=== PATIENT | female | born 1930 | race Caucasian/White ===

== ENCOUNTER 2016-06-06 16:42 | Emergency (ER) | payer MEDICARE ==
[2016-06-06] MEDS ORDERED: RX INFO: IV CONTRAST WAS GIVEN 1 EACH MISC MISCELLANE PRN (17:26)
[2016-06-06] MEDS ORDERED: SODIUM CHLORIDE 0.9% 1,000 ML IV STA (17:26)
[2016-06-06] MEDS ORDERED: PANTOPRAZOLE 40 MG/10 ML VIAL IVP STA (17:26)
--- NOTE | 2016-06-06 17:37 | ED ---
Abdominal Pain HPI - General Chief Complaint: Abdominal Pain Stated Complaint: Abd Pain Time Seen by Provider: 06/06/16 17:09 Source: patient Mode of arrival: wheelchair Limitations: no limitations - History of Present Illness Initial Comments: Presented with right-sided abdominal pain she has a pain in the right upper quadrant area, right lower quadrant area off and on for about 6 months from her family doctor's office she is scheduled to get a CAT scan of the abdomen few days down the road she said she had this pain off and on but today pain was more persistent and she denies any nausea or any vomiting she had a bowel movement today also concerned about her high blood pressure her blood pressure is quite high was 248 systolic in the ER she did not miss her blood pressure pills for last few days. She denies any chest pain or shortness of breath no headaches no blurred vision no neck stiffness no frequency urgency dysuria she does have pain in the right side of the abdomen. From the right upper quadrant area right paraumbilical area and the right lower quadrant area, positive bowel sounds no guarding no rebounds - Related Data Home Medications Medication Instructions Recorded Confirmed Aspirin EC [Ecotrin] 81 mg PO DAILY 04/17/14 06/06/16 Atenolol [Tenormin] 25 mg PO HS 04/17/14 06/06/16 Ranitidine HCl [Zantac] 150 mg PO BID 04/17/14 06/06/16 Simvastatin [Zocor] 40 mg PO HS 04/17/14 06/06/16 Ascorbic Acid [Vitamin C] 500 mg PO DAILY 06/06/16 06/06/16 Losartan Potassium [Cozaar] 100 mg PO W/SUPPER 06/06/16 06/06/16 Multivitamins, Thera [Multivitamin] 1 tab PO DAILY 06/06/16 06/06/16 Previous Rx's Medication Instructions Recorded Omeprazole 20 mg PO DAILY #60 cap 06/06/16 Allergies Allergy/AdvReac Type Severity Reaction Status Date / Time metaxalone [From Skelaxin] Allergy Rash/Hives Verified 06/06/16 17:21 verapamil HCl [From Calan] Allergy Unknown Verified 06/06/16 17:21 naproxen AdvReac Severe Heartburn Verified 06/06/16 17:21 acetaminophen AdvReac Abdominal Verified 06/06/16 17:21 [From Tylenol-Codeine #3] Pain codeine phosphate AdvReac Abdominal Verified 06/06/16 17:21 [From Tylenol-Codeine #3] Pain quinapril HCl [From Accupril] AdvReac Rapid Verified 06/06/16 17:21 Heart Rate Review of Systems ROS Statement: Those systems with pertinent positive or pertinent negative responses have been documented in the HPI. ROS Other: All systems not noted in ROS Statement are negative. Past Medical History Past Medical History: Coronary Artery Disease (CAD), GERD/Reflux, Hypertension History of Any Multi-Drug Resistant Organisms: None Reported Past Surgical History: Cholecystectomy, Heart Catheterization With Stent Past Anesthesia/Blood Transfusion Reactions: No Reported Reaction Date of Last Stent Placement:: 05/11/10 Past Psychological History: Anxiety Smoking Status: Never smoker - Past Family History Father Family Medical History: Cancer Sister(s) Family Medical History: Cancer General Exam - General Exam Comments Initial Comments: General: The patient is awake and alert, in no distress, and does not appear acutely ill. She has 650 Skin: Skin is warm and dry and no rashes or lesions are noted. Eye: Pupils are equal, round and reactive to light, extra-ocular movements are intact; there is normal conjunctiva bilaterally. Ears, nose, mouth and throat: There are moist mucous membranes and no oral lesions. Neck: The neck is supple, there is no tenderness or JVD. Cardiovascular: There is a regular rate and rhythm. No murmur, rub or gallop is appreciated. Respiratory: To auscultation bilateral, no wheezing no rhonchi no distress respiratory coelho noticed Gastrointestinal: Tender in right upper quadrant area and the right lower quadrant area, bowel sounds are positive no guarding no rebounds Back: There is no tenderness to palpation in the midline. There is no obvious deformity. Musculoskeletal: Normal ROM, no tenderness, There is no pedal edema. There is no calf tenderness or swelling. No cords were appreciated. Neurological: CN II-XII intact, Cranial nerves III through XII are intact. There are no obvious motor or sensory deficits. Coordination appears grossly intact. Speech is normal. Psychiatric: Cooperative, appropriate mood & affect, normal judgment. Limitations: no limitations Course Vital Signs 06/06/16 06/06/16 06/06/16 16:53 17:26 18:12 Temperature 97.6 F Pulse Rate 88 82 63 Respiratory 16 16 16 Rate Blood Pressure 248/121 240/105 214/94 O2 Sat by Pulse 99 100 100 Oximetry 06/06/16 06/06/16 19:24 21:21 Temperature Pulse Rate 58 L 56 L Respiratory 16 16 Rate Blood Pressure 186/86 162/95 O2 Sat by Pulse 100 100 Oximetry EKG sinus rhythm with premature atrial complexes which is read bundle branch block as well ventricular rate is 78 VT interval is 190 QRS duration is 136 QT/ QTc is 432/492 and feels this EKG did not show any ST elevation Medical Decision Making - Lab Data Result diagrams: 06/06/16 17:25 06/06/16 17:25 Lab Results 06/06/16 06/06/16 06/06/16 Range/Units 17:25 17:25 17:25 WBC 7.2 (3.8-10.6) k/uL RBC 4.00 (3.80-5.40) m/uL Hgb 12.6 (11.4-16.0) gm/dL Hct 37.3 (34.0-46.0) % MCV 93.1 (80.0-100.0) fL MCH 31.5 (25.0-35.0) pg MCHC 33.9 (31.0-37.0) g/dL RDW 12.1 (11.5-15.5) % Plt Count 272 (150-450) k/uL Neutrophils % 61 % Lymphocytes % 29 % Monocytes % 7 % Eosinophils % 1 % Basophils % 1 % Neutrophils # 4.4 (1.3-7.7) k/uL Lymphocytes # 2.1 (1.0-4.8) k/uL Monocytes # 0.5 (0-1.0) k/uL Eosinophils # 0.1 (0-0.7) k/uL Basophils # 0.0 (0-0.2) k/uL Sodium 138 (137-145) mmol/L Potassium 4.2 (3.5-5.1) mmol/L Chloride 99 (98-107) mmol/L Carbon Dioxide 28 (22-30) mmol/L Anion Gap 11 mmol/L BUN 19 H (7-17) mg/dL Creatinine 0.90 (0.52-1.04) mg/dL Est GFR (MDRD) Af Amer >60 (>60 ml/min/1.73 sqM) Est GFR (MDRD) Non-Af 60 (>60 ml/min/1.73 sqM) Glucose 102 H (74-99) mg/dL Plasma Lactic Acid [place] (0.7-2.0) mmol/L Calcium 9.8 (8.4-10.2) mg/dL Total Bilirubin 0.5 (0.2-1.3) mg/dL AST 32 (14-36) U/L ALT 47 (9-52) U/L Alkaline Phosphatase 62 (38-126) U/L Troponin I <0.012 (0.000-0.034) ng/mL Total Protein 7.2 (6.3-8.2) g/dL Albumin 4.6 (3.5-5.0) g/dL Amylase 78 (30-110) U/L Lipase 149 (23-300) U/L Urine Color Urine Appearance (Clear) Urine pH (5.0-8.0) Ur Specific [place] (1.001-1.035) Urine Protein (Negative) Urine Glucose (UA) (Negative) Urine Ketones (Negative) Urine Blood (Negative) Urine Nitrate (Negative) Urine Bilirubin (Negative) Urine Urobilinogen (<2.0) mg/dL Ur Leukocyte Esterase (Negative) Urine RBC (0-5) /hpf Urine WBC (0-5) /hpf Ur Squamous Epith Cells (0-4) /hpf Amorphous Sediment (None) /hpf Urine Mucus (None) /hpf 06/06/16 06/06/16 Range/Units 17:40 18:30 WBC (3.8-10.6) k/uL RBC (3.80-5.40) m/uL Hgb (11.4-16.0) gm/dL Hct (34.0-46.0) % MCV (80.0-100.0) fL MCH (25.0-35.0) pg MCHC (31.0-37.0) g/dL RDW (11.5-15.5) % Plt Count (150-450) k/uL Neutrophils % % Lymphocytes % % Monocytes % % Eosinophils % % Basophils % % Neutrophils # (1.3-7.7) k/uL Lymphocytes # (1.0-4.8) k/uL Monocytes # (0-1.0) k/uL Eosinophils # (0-0.7) k/uL Basophils # (0-0.2) k/uL Sodium (137-145) mmol/L Potassium (3.5-5.1) mmol/L Chloride (98-107) mmol/L Carbon Dioxide (22-30) mmol/L Anion Gap mmol/L BUN (7-17) mg/dL Creatinine (0.52-1.04) mg/dL Est GFR (MDRD) Af Amer (>60 ml/min/1.73 sqM) Est GFR (MDRD) Non-Af (>60 ml/min/1.73 sqM) Glucose (74-99) mg/dL Plasma Lactic Acid [place] 0.9 (0.7-2.0) mmol/L Calcium (8.4-10.2) mg/dL Total Bilirubin (0.2-1.3) mg/dL AST (14-36) U/L ALT (9-52) U/L Alkaline Phosphatase (38-126) U/L Troponin I (0.000-0.034) ng/mL Total Protein (6.3-8.2) g/dL Albumin (3.5-5.0) g/dL Amylase (30-110) U/L Lipase (23-300) U/L Urine Color Light Yellow Urine Appearance Clear (Clear) Urine pH 6.5 (5.0-8.0) Ur Specific [place] 1.011 (1.001-1.035) Urine Protein Negative (Negative) Urine Glucose (UA) Negative (Negative) Urine Ketones Negative (Negative) Urine Blood Negative (Negative) Urine Nitrate Negative (Negative) Urine Bilirubin Negative (Negative) Urine Urobilinogen <2.0 (<2.0) mg/dL Ur Leukocyte Esterase Trace H (Negative) Urine RBC 1 (0-5) /hpf Urine WBC 3 (0-5) /hpf Ur Squamous Epith Cells 1 (0-4) /hpf Amorphous Sediment Rare H (None) /hpf Urine Mucus Rare H (None) /hpf Critical Care Time Total Critical Care Time: 45 Critical Care Time: With the blood pressure 248/121, blood pressure was monitored closely dose of beta blockers in WERE done and now she seems quite excited she was given some Xanax, her blood pressure was extremely high and was watched for several hours and now it's normal belly pain has resolved and CBC, compressive metabolic panel , troponin, chest x-ray all those were reviewed and were discussed with the patient all those are within normal range patient was advised to follow-up with family doctor to arrange Colonoscopy and EGD, he did offer to go cart HER up with the Dr. Vanegas/Davina which she wants to go see the family doctor considering some insurance issues and tinnitus back Disposition Clinical Impression: Abdominal pain, Hypertension Disposition: HOME SELF-CARE Condition: Good Instructions: Abdominal Pain (ED) Prescriptions: Omeprazole 20 mg PO DAILY #60 cap Referrals: Mindy Gallardo DO [Primary Care Provider] - 1-2 days
[2016-06-06] MEDS ORDERED: ALPRAZolam 0.5 MG TAB PO STA (17:42)
[2016-06-06 17:51] LABS: ALT 47 U/L (9-52); AST 32 U/L (14-36); Alkaline Phosphatase 62 U/L (38-126); Amylase 78 U/L (30-110); Anion Gap 11 mmol/L; Blood Urea Nitrogen 19 mg/dL (7-17); Calcium 9.8 mg/dL (8.4-10.2); Carbon Dioxide 28 mmol/L (22-30); Chloride 99 mmol/L (98-107); Glucose 102 mg/dL (74-99); Non-African American GFR(MDRD) 60 (>60 ml/min/1.73 sqM); Potassium 4.2 mmol/L (3.5-5.1); Sodium 138 mmol/L (137-145); Total Bilirubin 0.5 mg/dL (0.2-1.3); Total Protein 7.2 g/dL (6.3-8.2)
[2016-06-06 18:00] LABS: Basophils % (A) 1 %; CH 31.8; CHCM 34.3; Eosinophils # (A) 0.1 k/uL (0-0.7); Eosinophils % (A) 1 %; HCT 37.3 % (34.0-46.0); HDW 2.35; HGB 12.6 gm/dL (11.4-16.0); Luc # (Auto) 0.18; Luc % (Auto) 3; Lymphocytes # (A) 2.1 k/uL (1.0-4.8); Lymphocytes % (A) 29 %; MCH 31.5 pg (25.0-35.0); MCHC 33.9 g/dL (31.0-37.0); MCV 93.1 fL (80.0-100.0); Mean Platelet Volume 7.7; Monocytes # (A) 0.5 k/uL (0-1.0); Monocytes % (A) 7 %; Neutrophils # (A) 4.4 k/uL (1.3-7.7); Neutrophils % (A) 61 %; RDW 12.1 % (11.5-15.5); WBC 7.2 k/uL (3.8-10.6); WBC (Perox) 7.04
[2016-06-06 18:46] LABS: Amorphous Sediment,Urine Rare /hpf; Appearance,Urine Clear (Clear); Bilirubin,Urine Negative (Negative); Glucose,Urine (UA) Negative (Negative); Ketones,Urine Negative (Negative); Leukocyte Esterase,Urine Trace (Negative); Mucus,Urine Rare /hpf; Nitrite,Urine Negative (Negative); PH, Urine 6.5 (5.0-8.0); Particle Count 458; Protein,Urine Negative (Negative); RBC,Urine 1 /hpf (0-5); Specific Gravity,Urine 1.011 (1.001-1.035); Squamous Epithelial Cell,Urine 1 /hpf (0-4); UA Billing (MACRO vs. MICRO) MICRO; Urobilinogen,Urine <2.0 mg/dL (<2.0); WBC,Urine 3 /hpf (0-5)
--- NOTE | 2016-06-06 19:25 | CT ---
EXAMINATION TYPE: CT abdomen pelvis w con DATE OF EXAM: 06/06/2016 7:03 PM COMPARISON: 07/14/2010 HISTORY: Right sided Abdominal pain CT DLP: 316.1 mGycm Automated exposure control for dose reduction was used. TECHNIQUE: Helical acquisition of images was performed from the lung bases through the pelvis. CONTRAST: Performed without Oral Contrast and with IV Contrast, patient injected with 100 mL of Omnipaque 300. FINDINGS: Lung bases are clear of consolidation. There is mild subsegmental atelectasis at the lung bases. Hear t is enlarged. There is no pleural effusion. The liver spleen pancreas appear normal. There are clips from cholecystectomy. Bile ducts are not dilated. There is no adrenal mass. There are small left chi al parapelvic cysts. There is no hydronephrosis. There is normal contrast opacification of the kidney s. Ureters are not dilated. There is no retroperitoneal adenopathy. Abdominal aorta is atheromatous. Appendix is not seen. There is no sign of appendicitis. There is no evidence of a bowel obstruction. Bladder distends smoothly. T here is no pelvic mass. I see no bony destructive process. There is no sign of a hernia. IMPRESSION: MILD SUBSEGMENTAL ATELECTASIS AT THE LUNG BASES IS INCREASED COMPARED TO OLD EXAM. NO SIGN OF ACUTE A BDOMEN AND PELVIS. I DO NOT SEE A CAUSE FOR RIGHT-SIDED ABDOMINAL PAIN.
[2016-06-06 22:17] VITALS: BP 186/84; PULSE 54; RESP 17; TEMP 97.1
== END 2016-06-06 22:18 | disposition home or self-care (01) ==
LOC: EC 16:42
DX: R10.11 Right upper quadrant pain (principal); I10 Essential (primary) hypertension; I25.10 Atherosclerotic heart disease of native coronary artery without angina pectoris; K21.9 Gastro-esophageal reflux disease without esophagitis; Z79.82 Long term (current) use of aspirin; Z79.899 Other long term (current) drug therapy; Z88.8 Allergy status to other drugs, medicaments and biological substances; Z88.5 Allergy status to narcotic agent; Z95.5 Presence of coronary angioplasty implant and graft
CPT/HCPCS: 99284; 96374; 96361 ×5; 36415; 93005; 80053; 82150; 83605; 83690; 84484; 85025; 81001; 74177; Q9967; C9113

== ENCOUNTER 2016-06-11 17:32 | Inpatient (IN) | payer MEDICARE ==
[2016-06-11] MEDS ORDERED: PANTOPRAZOLE 40 MG/10 ML VIAL IVP STA (18:09)
[2016-06-11] MEDS ORDERED: SODIUM CHLORIDE 0.9% 1,000 ML IV STA (18:09)
[2016-06-11] MEDS ORDERED: RX INFO: IV CONTRAST WAS GIVEN 1 EACH MISC MISCELLANE PRN (18:09)
--- NOTE | 2016-06-11 18:11 | ED ---
General Adult HPI - General Chief complaint: GI Bleed Stated complaint: BLOOD IN STOOL Time Seen by Provider: 06/11/16 17:55 Source: patient, family, RN notes reviewed Mode of arrival: ambulatory Limitations: no limitations - History of Present Illness Initial comments: Patient is a pleasant 85-year-old female presenting to the emergency department with concerns regarding bloody stool. Patient has had 2 episodes since around noon. Patient had bright red blood per rectum with some clots. No rectal pain. Patient has been dealing with some abdominal discomfort over the past month or so, symptoms worse today. No nausea vomiting. No fever. No fatigue or dyspnea. - Related Data Home Medications Medication Instructions Recorded Confirmed Aspirin EC [Ecotrin] 81 mg PO DAILY 04/17/14 06/11/16 Atenolol [Tenormin] 25 mg PO HS 04/17/14 06/11/16 Ranitidine HCl [Zantac] 150 mg PO BID 04/17/14 06/11/16 Simvastatin [Zocor] 40 mg PO HS 04/17/14 06/11/16 Ascorbic Acid [Vitamin C] 500 mg PO DAILY 06/06/16 06/11/16 Losartan Potassium [Cozaar] 100 mg PO W/SUPPER 06/06/16 06/11/16 Multivitamins, Thera [Multivitamin] 1 tab PO DAILY 06/06/16 06/11/16 ALPRAZolam [Xanax] 0.25 mg PO TID PRN 06/11/16 06/11/16 Previous Rx's Medication Instructions Recorded Omeprazole 20 mg PO DAILY #60 cap 06/06/16 Allergies Allergy/AdvReac Type Severity Reaction Status Date / Time metaxalone [From Skelaxin] Allergy Rash/Hives Verified 06/11/16 18:24 verapamil HCl [From Calan] Allergy Unknown Verified 06/11/16 18:24 naproxen AdvReac Severe Heartburn Verified 06/11/16 18:24 acetaminophen AdvReac Abdominal Verified 06/11/16 18:24 [From Tylenol-Codeine #3] Pain codeine phosphate AdvReac Abdominal Verified 06/11/16 18:24 [From Tylenol-Codeine #3] Pain quinapril HCl [From Accupril] AdvReac Rapid Verified 06/11/16 18:24 Heart Rate Review of Systems ROS Statement: Those systems with pertinent positive or pertinent negative responses have been documented in the HPI. ROS Other: All systems not noted in ROS Statement are negative. Constitutional: Denies: fever Eyes: Denies: eye pain ENT: Denies: ear pain Respiratory: Denies: cough, dyspnea Cardiovascular: Denies: chest pain Endocrine: Denies: fatigue Gastrointestinal: Reports: abdominal pain, hematochezia Genitourinary: Denies: dysuria Musculoskeletal: Denies: back pain Skin: Denies: rash Neurological: Denies: weakness Past Medical History Past Medical History: Coronary Artery Disease (CAD), GERD/Reflux, Hypertension History of Any Multi-Drug Resistant Organisms: None Reported Past Surgical History: Cholecystectomy, Heart Catheterization With Stent Past Anesthesia/Blood Transfusion Reactions: No Reported Reaction Date of Last Stent Placement:: 05/11/10 Past Psychological History: Anxiety Smoking Status: Never smoker - Past Family History Father Family Medical History: Cancer Sister(s) Family Medical History: Cancer General Exam Limitations: no limitations General appearance: alert, in no apparent distress Head exam: Present: atraumatic Eye exam: Present: normal appearance Neck exam: Present: normal inspection Respiratory exam: Present: normal lung sounds bilaterally Cardiovascular Exam: Present: regular rate, normal rhythm GI/Abdominal exam: Present: soft. Absent: tenderness Rectal exam: Present: normal rectal tone, bloody stool Extremities exam: Present: normal inspection. Absent: pedal edema, calf tenderness Neurological exam: Present: alert Psychiatric exam: Present: normal affect, normal mood Skin exam: Absent: rash Course Vital Signs 06/11/16 06/11/16 06/11/16 17:47 18:30 19:00 Temperature 97.1 F L Pulse Rate 72 64 63 Respiratory 18 18 20 Rate Blood Pressure 171/72 201/80 172/87 O2 Sat by Pulse 98 99 98 Oximetry Medical Decision Making - Medical Decision Making Case was discussed in detail with Dr. Quintanilla, who will admit for Dr. Adams. Admission orders written. Computed tomography scan ordered. Patient reevaluated and updated. - Lab Data Result diagrams: 06/11/16 18:30 06/11/16 18:30 Lab Results 06/11/16 06/11/16 06/11/16 Range/Units 18:30 18:30 18:30 WBC 9.6 (3.8-10.6) k/uL RBC 3.88 (3.80-5.40) m/uL Hgb 12.1 (11.4-16.0) gm/dL Hct 36.1 (34.0-46.0) % MCV 93.2 (80.0-100.0) fL MCH 31.3 (25.0-35.0) pg MCHC 33.6 (31.0-37.0) g/dL RDW 11.9 (11.5-15.5) % Plt Count 258 (150-450) k/uL Neutrophils % 78 % Lymphocytes % 14 % Monocytes % 6 % Eosinophils % 1 % Basophils % 0 % Neutrophils # 7.5 (1.3-7.7) k/uL Lymphocytes # 1.4 (1.0-4.8) k/uL Monocytes # 0.6 (0-1.0) k/uL Eosinophils # 0.1 (0-0.7) k/uL Basophils # 0.0 (0-0.2) k/uL PT (9.0-12.0) sec INR (<1.1) APTT (22.0-30.0) sec Sodium 135 L (137-145) mmol/L Potassium 4.4 (3.5-5.1) mmol/L Chloride 97 L (98-107) mmol/L Carbon Dioxide 28 (22-30) mmol/L Anion Gap 10 mmol/L BUN 21 H (7-17) mg/dL Creatinine 0.85 (0.52-1.04) mg/dL Est GFR (MDRD) Af Amer >60 (>60 ml/min/1.73 sqM) Est GFR (MDRD) Non-Af >60 (>60 ml/min/1.73 sqM) Glucose 104 H (74-99) mg/dL Calcium 9.6 (8.4-10.2) mg/dL Total Bilirubin 0.7 (0.2-1.3) mg/dL AST 26 (14-36) U/L ALT 42 (9-52) U/L Alkaline Phosphatase 57 (38-126) U/L Total Protein 6.9 (6.3-8.2) g/dL Albumin 4.2 (3.5-5.0) g/dL Stool Occult Blood Positive H (Negative) 01/20/17 Range/Units 18:30 WBC (3.8-10.6) k/uL RBC (3.80-5.40) m/uL Hgb (11.4-16.0) gm/dL Hct (34.0-46.0) % MCV (80.0-100.0) fL MCH (25.0-35.0) pg MCHC (31.0-37.0) g/dL RDW (11.5-15.5) % Plt Count (150-450) k/uL Neutrophils % % Lymphocytes % % Monocytes % % Eosinophils % % Basophils % % Neutrophils # (1.3-7.7) k/uL Lymphocytes # (1.0-4.8) k/uL Monocytes # (0-1.0) k/uL Eosinophils # (0-0.7) k/uL Basophils # (0-0.2) k/uL PT 10.7 (9.0-12.0) sec INR 1.1 (<1.1) APTT 22.2 (22.0-30.0) sec Sodium (137-145) mmol/L Potassium (3.5-5.1) mmol/L Chloride (98-107) mmol/L Carbon Dioxide (22-30) mmol/L Anion Gap mmol/L BUN (7-17) mg/dL Creatinine (0.52-1.04) mg/dL Est GFR (MDRD) Af Amer (>60 ml/min/1.73 sqM) Est GFR (MDRD) Non-Af (>60 ml/min/1.73 sqM) Glucose (74-99) mg/dL Calcium (8.4-10.2) mg/dL Total Bilirubin (0.2-1.3) mg/dL AST (14-36) U/L ALT (9-52) U/L Alkaline Phosphatase (38-126) U/L Total Protein (6.3-8.2) g/dL Albumin (3.5-5.0) g/dL Stool Occult Blood (Negative) Disposition Clinical Impression: Lower gastrointestinal hemorrhage Disposition: ADMITTED IP TO [facility]
[2016-06-11 18:54] LABS: Basophils % (A) 0 %; CH 31.9; CHCM 34.4; Eosinophils # (A) 0.1 k/uL (0-0.7); Eosinophils % (A) 1 %; HCT 36.1 % (34.0-46.0); HDW 2.38; HGB 12.1 gm/dL (11.4-16.0); Luc # (Auto) 0.11; Luc % (Auto) 1; Lymphocytes # (A) 1.4 k/uL (1.0-4.8); Lymphocytes % (A) 14 %; MCH 31.3 pg (25.0-35.0); MCHC 33.6 g/dL (31.0-37.0); MCV 93.2 fL (80.0-100.0); Mean Platelet Volume 7.3; Monocytes # (A) 0.6 k/uL (0-1.0); Monocytes % (A) 6 %; Neutrophils # (A) 7.5 k/uL (1.3-7.7); Neutrophils % (A) 78 %; RBC 3.88 m/uL (3.80-5.40); RDW 11.9 % (11.5-15.5); WBC 9.6 k/uL (3.8-10.6); WBC (Perox) 10.02
[2016-06-11 19:02] LABS: ALT 42 U/L (9-52); AST 26 U/L (14-36); Alkaline Phosphatase 57 U/L (38-126); Anion Gap 10 mmol/L; Blood Urea Nitrogen 21 mg/dL (7-17); Calcium 9.6 mg/dL (8.4-10.2); Carbon Dioxide 28 mmol/L (22-30); Chloride 97 mmol/L (98-107); Glucose 104 mg/dL (74-99); Non-African American GFR(MDRD) >60 (>60 ml/min/1.73 sqM); Potassium 4.4 mmol/L (3.5-5.1); Sodium 135 mmol/L (137-145); Total Bilirubin 0.7 mg/dL (0.2-1.3); Total Protein 6.9 g/dL (6.3-8.2)
[2016-06-11 19:07] LABS: INR 1.1 (<1.1)
[2016-06-11 19:08] LABS: Partial Thromboplastin Time 22.2 sec (22.0-30.0); Prothrombin Time 10.7 sec (9.0-12.0)
[2016-06-11] MEDS ORDERED: NALOXONE 0.4 MG/ML 1 ML VIAL IV PRN (19:13)
--- NOTE | 2016-06-11 19:53 | CT ---
EXAMINATION TYPE: CT abdomen pelvis w con DATE OF EXAM: 06/11/2016 7:40 PM COMPARISON: 06/06/2016 HISTORY: Patient complains of generalized pelvic pain and bloody stools. CT DLP: 904 mGycm Automated exposure control for dose reduction was used. TECHNIQUE: Helical acquisition of images was performed from the lung bases through the pelvis. CONTRAST: Performed without Oral Contrast and with IV Contrast, patient injected with 100 mL of Omnipaque 300. FINDINGS: There is some patchy mild atelectasis at the lung bases. There is no pleural effusion. There is no pe ricardial effusion. The liver and spleen appear normal. Bile ducts are not dilated. There is no pancr eatic mass. There are clips from cholecystectomy. Abdominal aorta is atheromatous. There is no adrena l mass. There are multiple left-sided parapelvic cysts. There is no hydronephrosis. There is no retro peritoneal adenopathy. There is no ascites. The bladder distends smoothly. There is thickening of the wall of the transverse colon extending to the splenic flexure with wall edema. There is no evidence of a bowel obstruction. There is retained fecal material in the right colon. Appendix is not seen. Th ere is no sign of appendicitis. There is no ascites. I see no pelvic mass. IMPRESSION: THERE IS SOME MILD ATELECTASIS AT THE LUNG BASES. CARDIOMEGALY. ATHEROSCLEROTIC VASCULAR DISEASE. MUL TIPLE LEFT RENAL PARAPELVIC CYSTS. SACRAL CYST NOTED AND MEASURES 2 CM. COMPARED TO THE LAST CT SCAN OF 06/06/2016 THERE IS NEW THICKENING OF THE TRANSVERSE COLON WALL CONSIS TENT WITH COLITIS.
[2016-06-12] MEDS: metroNIDAZOLE 500 MG TAB PO SCH ×4 (04:18→22:05)
[2016-06-12] MEDS: SODIUM CHLORIDE 0.9% 1,000 ML IV SCH ×3 (04:18→23:17)
[2016-06-12 05:42] LABS: Basophils % (A) 0 %; CH 31.7; CHCM 34.1; Eosinophils # (A) 0.1 k/uL (0-0.7); Eosinophils % (A) 2 %; HCT 32.1 % (34.0-46.0); HDW 2.36; HGB 10.6 gm/dL (11.4-16.0); Luc % (Auto) 2; Lymphocytes # (A) 1.3 k/uL (1.0-4.8); Lymphocytes % (A) 20 %; MCH 30.7 pg (25.0-35.0); MCHC 32.9 g/dL (31.0-37.0); MCV 93.3 fL (80.0-100.0); Mean Platelet Volume 7.2; Monocytes # (A) 0.4 k/uL (0-1.0); Monocytes % (A) 6 %; Neutrophils # (A) 4.7 k/uL (1.3-7.7); Neutrophils % (A) 71 %; RBC 3.44 m/uL (3.80-5.40); RDW 11.9 % (11.5-15.5); WBC 6.6 k/uL (3.8-10.6); WBC (Perox) 7.09
[2016-06-12] MEDS: LEVOFLOXACIN 750 MG TAB PO SCH (08:48)
[2016-06-12] MEDS ORDERED: PANTOPRAZOLE 40 MG/10 ML VIAL IV SCH (09:00)
[2016-06-12] MEDS ORDERED: NON-FORMULARY DRUG (Aspirin Ec 162 MG) PO SCH (18:45)
[2016-06-12] MEDS: ATORVASTATIN 20 MG TAB PO SCH ×2 (19:46→22:04)
[2016-06-12] MEDS: LOSARTAN 50 MG TAB PO SCH (19:46)
[2016-06-12] MEDS: MULTIVITAMINS, THERA 1 EACH TAB PO SCH (19:46)
[2016-06-12] MEDS: ALPRAZolam 0.25 MG TAB PO PRN (19:47)
[2016-06-12] MEDS: amLODIPine 2.5 MG TAB PO SCH (19:47)
[2016-06-12] MEDS ORDERED: NON-FORMULARY DRUG (Ranitidine Hcl [Zantac] 150 MG) PO SCH (21:00)
[2016-06-12] MEDS ORDERED: ATENOLOL 25 MG TAB PO SCH (21:00)
[2016-06-12] MEDS: MELATONIN 3 MG TABLET PO SCH (23:17)
[2016-06-13 06:19] LABS: Basophils % (A) 0 %; CH 31.4; CHCM 33.3; Eosinophils # (A) 0.2 k/uL (0-0.7); Eosinophils % (A) 3 %; HCT 31.8 % (34.0-46.0); HDW 2.33; HGB 10.5 gm/dL (11.4-16.0); Luc # (Auto) 0.13; Luc % (Auto) 2; Lymphocytes # (A) 1.2 k/uL (1.0-4.8); Lymphocytes % (A) 22 %; MCH 31.3 pg (25.0-35.0); MCHC 33.1 g/dL (31.0-37.0); MCV 94.5 fL (80.0-100.0); Mean Platelet Volume 6.4; Monocytes # (A) 0.4 k/uL (0-1.0); Monocytes % (A) 6 %; Neutrophils # (A) 3.6 k/uL (1.3-7.7); Neutrophils % (A) 66 %; RBC 3.36 m/uL (3.80-5.40); WBC 5.5 k/uL (3.8-10.6); WBC (Perox) 5.94
[2016-06-13 06:32] LABS: Anion Gap 5 mmol/L; Blood Urea Nitrogen 8 mg/dL (7-17); Calcium 8.7 mg/dL (8.4-10.2); Carbon Dioxide 29 mmol/L (22-30); Chloride 106 mmol/L (98-107); Glucose 93 mg/dL (74-99); Non-African American GFR(MDRD) 60 (>60 ml/min/1.73 sqM); Potassium 4.1 mmol/L (3.5-5.1); Sodium 140 mmol/L (137-145)
[2016-06-13] MEDS: PANTOPRAZOLE 40 MG TABLET PO SCH (06:51)
[2016-06-13] MEDS: CALCIUM CARB-VIT D 500MG-200UN 1 EACH TAB PO SCH (07:49)
[2016-06-13] MEDS: LEVOFLOXACIN 750 MG TAB PO SCH (07:49)
[2016-06-13] MEDS: amLODIPine 2.5 MG TAB PO SCH (07:49)
[2016-06-13] MEDS: metroNIDAZOLE 500 MG TAB PO SCH ×3 (07:49→22:30)
[2016-06-13] MEDS ORDERED: ASCORBIC ACID 500 MG TAB PO SCH (09:00)
--- NOTE | 2016-06-13 11:17 | HP ---
DATE OF ADMISSION: CHIEF COMPLAINT: GI bleed. HISTORY OF PRESENT ILLNESS: This 85-year-old woman with a past medical history of colonoscopy 10 years ago, which showed diverticulosis, history of coronary artery disease, hypertension, history of gastroesophageal reflux, history of cholecystectomy, CAD, stent in 2009, history of anxiety being followed by Dr. Adams in the outpatient setting, was noted to have gastrointestinal bleed this morning. The patient initially had lower abdominal pain and subsequently patient had 2 episodes of diarrhea. Subsequently, the patient had bright red blood per rectum with clots and patient came to [facility] and admitted for further evaluation and treatment. There is no history of any fever, rigors, chills. No history of headache, loss of consciousness, seizures. The abdominal CAT scan showed thickening of the transverse colon indicating colitis. PAST MEDICAL HISTORY: Coronary artery disease and stent, history gastroesophageal reflux disease, hypertension, history of hiatal hernia. Medications prior to admission include: 1. Multivitamins 1 p.o. q.48 hours. 2. Ecotrin 160 mg daily. 3. Xanax 0.5 t.i.d. p.r.n. 4. Norvasc 2.5 mg b.i.d. 5. Vitamin D3 1 p.o. daily. 6. Zocor 40 mg q.h.s. 7. Zantac 150 mg p.o. b.i.d. 8. Omeprazole 20 mg p.o. daily. 9. Cozaar 100 mg supper. 10. Tenormin 25 mg q.h.s. 11. Vitamin C 500 mg p.o. daily. ALLERGIES: NAPROSYN, TYLENOL #3 AND ACCUPRIL. FAMILY HISTORY: History of cancer and anemia in the family. SOCIAL HISTORY: No history of smoking. No history of alcohol intake. REVIEW OF SYSTEMS: ENT: Diminished hearing, diminished vision. CARDIOVASCULAR: No angina or palpitations. RESPIRATORY: No cough. GI: As mentioned earlier. : No dysuria. NERVOUS SYSTEM: No numbness or weakness. ALLERGY/IMMUNOLOGY: No asthma or hayfever. MUSCULOSKELETAL: As mentioned earlier. HEMATOLOGY: As mentioned earlier. ENDOCRINE: No history of diabetes or hypothyroidism. CONSTITUTIONAL: As mentioned earlier. DERMATOLOGY: Negative. RHEUMATOLOGY: Negative. PSYCHIATRY: As mentioned earlier. PHYSICAL EXAMINATION: Alert and oriented x3. Pulse 75, blood pressure 151/60, respiration 18, temperature 97.5, pulse ox 97% on room air. HEENT: Conjunctivae pale. Oral mucosa moist. NECK: No jugular venous distention. No carotid bruit. No lymph node enlargement. CARDIOVASCULAR: S1 and S2, muffled. No S3, no S4. RESPIRATORY: Breath sounds diminished at the bases. No rhonchi, no crackles. ABDOMEN: Soft, mild diffuse distention present. Mild diffuse discomfort on palpation of the left lower quadrant. No guarding, no rigidity. No mass palpable. No hepatosplenomegaly. LEGS: No edema, no swelling. NERVOUS SYSTEM: Higher function as mentioned. Moves all four limbs. No focal motor deficits. LYMPHATIC: No lymphadenopathy in the neck, axillae or groin. SKIN: No ulcer, rash or bleeding. LABS: WBC 6.6, hemoglobin 10.6. Sodium is 135. Stool OP is positive. ASSESSMENT: 1. Acute lower gastrointestinal bleeding with acute blood loss anemia, possibly diverticular bleed, rule out colitis. 2. Hyponatremia. 3. History of coronary artery disease and stent. 4. Gastroesophageal reflux disease. 5. Hypertension. 6. History of hiatal hernia. 7. History of cholecystectomy. 8. History of anxiety. RECOMMENDATIONS AND DISCUSSION: In this 85-year-old woman who presented with multiple complex medical issues, we will monitor the patient closely. Continue the current medications. We will monitor hemoglobin closely. Otherwise, continue to monitor. Empiric antibiotics initiated for presumed colitis. Otherwise, hold antiplatelet agents. Will also obtain cardiology and gastroenterology consultation. Guarded prognosis because of multiple complex medical issues. Further recommendations to follow. Copy of dictation forwarded to Dr. Adams who is the primary physician. [facility]
[2016-06-13] MEDS: ALPRAZolam 0.25 MG TAB PO PRN ×2 (11:31→22:29)
[2016-06-13] MEDS: LOSARTAN 50 MG TAB PO SCH (12:01)
--- NOTE | 2016-06-13 13:20 | P.CRDCN ---
History of Present Illness History of present illness: 85-year-old female presenting with lower GI bleeding, bright red , with clots Known coronary artery disease Hypertension Dyslipidemia Plan Lower GI workup Continue cardiac medications for coronary artery disease status post coronary stenting Continue medications for hypertension Past Medical History Past Medical History: Coronary Artery Disease (CAD), GERD/Reflux, Hypertension Additional Past Medical History / Comment(s): hiatal hernia History of Any Multi-Drug Resistant Organisms: None Reported Past Surgical History: Cholecystectomy, Heart Catheterization With Stent Additional Past Surgical History / Comment(s): stent to the Circumflex Past Anesthesia/Blood Transfusion Reactions: No Reported Reaction Date of Last Stent Placement:: 05/11/10 Past Psychological History: Anxiety Smoking Status: Never smoker - Past Family History Brother(s) Family Medical History: Cancer Additional Family Medical History / Comment(s): Throat cancer Father Family Medical History: Cancer Additional Family Medical History / Comment(s): anemia Sister(s) Family Medical History: Cancer Additional Family Medical History / Comment(s): breast cancer Medications and Allergies Home Medications Medication Instructions Recorded Confirmed Type Aspirin EC [Ecotrin] 162 mg PO DAILY 04/17/14 06/12/16 History Atenolol [Tenormin] 25 mg PO HS 04/17/14 06/11/16 History Ranitidine HCl [Zantac] 150 mg PO BID 04/17/14 06/11/16 History Simvastatin [Zocor] 40 mg PO HS 04/17/14 06/11/16 History Ascorbic Acid [Vitamin C] 500 mg PO DAILY 06/06/16 06/11/16 History Losartan Potassium [Cozaar] 100 mg PO W/SUPPER 06/06/16 06/11/16 History Multivitamins, Thera [Multivitamin] 1 tab PO Q48H 06/06/16 06/12/16 History ALPRAZolam [Xanax] 0.25 mg PO TID PRN 06/11/16 06/12/16 History Calcium Carbonate/Vitamin D3 1 tab PO DAILY 06/12/16 06/12/16 History [Calcium 600-Vit D3 200 Tablet] amLODIPine [Norvasc] 2.5 mg PO BID 06/12/16 06/12/16 History Allergies Allergy/AdvReac Type Severity Reaction Status Date / Time metaxalone [From Skelaxin] Allergy Rash/Hives Verified 06/11/16 18:24 verapamil HCl [From Calan] Allergy Unknown Verified 06/11/16 18:24 naproxen AdvReac Severe Heartburn Verified 06/11/16 18:24 acetaminophen AdvReac Abdominal Verified 06/11/16 18:24 [From Tylenol-Codeine #3] Pain codeine phosphate AdvReac Abdominal Verified 06/11/16 18:24 [From Tylenol-Codeine #3] Pain quinapril HCl [From Accupril] AdvReac Rapid Verified 06/11/16 18:24 Heart Rate Physical Exam Vitals: Vital Signs Temp Pulse Resp BP BP Pulse Ox 06/13/16 12:00 97.7 F 75 16 200/90 96 06/13/16 07:53 97.7 F 65 16 200/86 98 06/13/16 04:20 74 16 187/83 96 06/13/16 04:00 74 16 06/13/16 00:00 97.2 F L 64 16 174/79 96 06/12/16 20:51 59 L 18 168/79 95 06/12/16 20:00 78 16 210/88 96 06/12/16 14:50 97.4 F L 70 16 185/84 96 Intake and Output 06/12/16 06/13/16 06/13/16 22:59 06:59 14:59 Intake Total 1700 750 Balance 1700 750 Intake: IV 1700 Sodium Chloride 0.9% 1, 1700 000 ml @ 100 mls/hr IV . Q10H [facility] Rx#:[id number] Intake, IV Titration 750 Amount Sodium Chloride 0.9% 1, 750 000 ml @ 75 mls/hr IV . [id number] [facility] Rx#:[id number] Other: Voiding Method Toilet Toilet Toilet # Voids 2 2 # Bowel Movements 1 Weight 55.5 kg Results 06/13/16 05:46 06/13/16 05:46 CBC 06/13/16 Range/Units 05:46 WBC 5.5 (3.8-10.6) k/uL RBC 3.36 L (3.80-5.40) m/uL Hgb 10.5 L (11.4-16.0) gm/dL Hct 31.8 L (34.0-46.0) % Plt Count 207 (150-450) k/uL Comprehensive Metabolic Panel 06/13/16 Range/Units 05:46 Sodium 140 (137-145) mmol/L Potassium 4.1 (3.5-5.1) mmol/L Chloride 106 (98-107) mmol/L Carbon Dioxide 29 (22-30) mmol/L BUN 8 (7-17) mg/dL Creatinine 0.90 (0.52-1.04) mg/dL Glucose 93 (74-99) mg/dL Calcium 8.7 (8.4-10.2) mg/dL Current Medications Generic Name Dose Route Start Last Admin Trade Name Freq PRN Reason Stop Dose Admin Alprazolam 0.25 mg 06/12/16 17:48 06/13/16 11:31 Xanax PO 0.25 mg TID PRN Administration Anxiety Amlodipine Besylate 2.5 mg 06/12/16 21:00 06/13/16 07:49 Norvasc PO 2.5 mg BID DEMIAN Administration Atenolol 25 mg 06/12/16 21:00 06/12/16 19:47 Tenormin PO 25 mg HS DEMIAN Administration Atorvastatin Calcium 20 mg 06/12/16 21:00 06/12/16 22:04 Lipitor PO 20 mg HS DEMIAN Administration Calcium Carbonate 1 each 06/13/16 09:00 06/13/16 07:49 Oscal 500+D PO 1 each DAILY DEMIAN Administration Sodium Chloride 1,000 mls @ 75 mls/hr 06/11/16 19:15 06/12/16 23:17 Saline 0.9% IV 75 mls/hr .[id number] DEMIAN Administration Levofloxacin 750 mg 06/12/16 09:00 06/13/16 07:49 Levaquin PO 750 mg DAILY DEMIAN Administration Losartan Potassium 100 mg 06/12/16 18:00 06/13/16 12:01 Cozaar PO 100 mg W/SUPPER DEMIAN Administration Melatonin 3 mg 06/12/16 21:00 06/12/16 23:17 Melatonin PO 3 mg HS DEMIAN Administration Metronidazole 500 mg 06/11/16 22:00 06/13/16 07:49 Flagyl PO 500 mg TID DEMIAN Administration Miscellaneous Information 1 each 06/11/16 18:09 06/11/16 19:36 Rx Info: Iv Contrast Was Given MISCELLANE 06/13/16 18:09 1 each DAILY PRN Administration Per Protocol Multivitamins 1 each 06/12/16 18:00 06/12/16 19:46 Theragran PO 1 each Q48H DEM[facility] Administration Naloxone HCl 0.2 mg 06/11/16 19:13 Narcan IV Q2M PRN Opioid Reversal Pantoprazole Sodium 40 mg 06/13/16 07:30 06/13/16 06:51 Protonix PO 40 mg [id number] DEMIAN Administration Intake and Output 06/12/16 06/13/16 06/13/16 22:59 06:59 14:59 Intake Total 1700 750 Balance 1700 750 Intake: IV 1700 Sodium Chloride 0.9% 1, 1700 000 ml @ 100 mls/hr IV . Q10H [facility] Rx#:[id number] Intake, IV Titration 750 Amount Sodium Chloride 0.9% 1, 750 000 ml @ 75 mls/hr IV . [id number] [facility] Rx#:[id number] Other: Voiding Method Toilet Toilet Toilet # Voids 2 2 # Bowel Movements 1 Weight 55.5 kg 06/13/16 05:46 06/13/16 05:46
[2016-06-13] MEDS ORDERED: ATENOLOL 50 MG TAB PO SCH (14:03)
[2016-06-13] MEDS ORDERED: hydrALAZINE HCL 20 MG/ML 1 ML VIAL IVP PRN (14:03)
[2016-06-13] MEDS: SODIUM CHLORIDE 0.9% 1,000 ML IV SCH (16:54)
[2016-06-13] MEDS: CARVEDILOL 6.25 MG TAB PO SCH (17:50)
--- NOTE | 2016-06-13 18:33 | CONS ---
DATE OF CONSULTATION: An 85-year-old female who presented with bright red blood in clots of from the rectum and she is in the hospital for an evaluation for this. Cardiology was consulted on account of hypertension and known coronary artery disease. The patient denies any chest discomfort. No undue shortness of breath, orthopnea, PND, palpitations. Past history of coronary artery disease, hypertension and dyslipidemia. Past surgical history of cholecystectomy, coronary artery disease with coronary stenting to the left circumflex. Medication list was reviewed and is documented in the chart. Allergies as documented in the chart. On examination, she is afebrile. On admission pulse rate in the 70s. Blood pressure is quite elevated at 187/83 mmHg. Head and neck examination is normal. Heart sounds are normal. Lungs are clear to auscultation. Extremities are warm. No edema. IMPRESSION: 1. Uncontrolled hypertension. 2. History of coronary artery disease, status post coronary artery stenting. 3. History of lower gastrointestinal bleeding with a hemoglobin of 10. Labs are reviewed. GFR is normal. Hemoglobin is 10.5 yesterday and on 06/11 it was 12.1. SUGGEST: Maximize antihypertensive therapy. I have stopped metoprolol and switch to carvedilol. She is on amlodipine, losartan. We will stagger these medications and the dose of losartan may be increased to 150 mg p.o. daily or alternatively Rocephin 300 mg p.o. daily can be used. Continue atorvastatin 20 mg daily. Preparations may be made for bowel prep.
[2016-06-13] MEDS: amLODIPine 5 MG TAB PO SCH (19:54)
[2016-06-13] MEDS: MELATONIN 3 MG TABLET PO SCH (19:54)
[2016-06-13] MEDS: ATORVASTATIN 20 MG TAB PO SCH (19:54)
[2016-06-14 06:17] LABS: Basophils % (A) 0 %; CH 31.6; CHCM 33.9; Eosinophils # (A) 0.1 k/uL (0-0.7); Eosinophils % (A) 2 %; HCT 32.7 % (34.0-46.0); HDW 2.36; Luc # (Auto) 0.12; Luc % (Auto) 2; Lymphocytes # (A) 1.1 k/uL (1.0-4.8); Lymphocytes % (A) 17 %; MCH 31.6 pg (25.0-35.0); MCHC 33.7 g/dL (31.0-37.0); MCV 93.6 fL (80.0-100.0); Mean Platelet Volume 6.6; Monocytes # (A) 0.4 k/uL (0-1.0); Monocytes % (A) 6 %; Neutrophils % (A) 73 %; RBC 3.49 m/uL (3.80-5.40); RDW 11.9 % (11.5-15.5); WBC 6.8 k/uL (3.8-10.6); WBC (Perox) 7.58
[2016-06-14 06:22] LABS: Anion Gap 8 mmol/L; Blood Urea Nitrogen 8 mg/dL (7-17); Calcium 8.9 mg/dL (8.4-10.2); Carbon Dioxide 30 mmol/L (22-30); Chloride 99 mmol/L (98-107); Glucose 96 mg/dL (74-99); Non-African American GFR(MDRD) 57 (>60 ml/min/1.73 sqM); Potassium 3.8 mmol/L (3.5-5.1); Sodium 137 mmol/L (137-145)
[2016-06-14] MEDS: CARVEDILOL 6.25 MG TAB PO SCH ×2 (07:21→17:04)
[2016-06-14] MEDS: PANTOPRAZOLE 40 MG TABLET PO SCH (07:21)
[2016-06-14] MEDS: amLODIPine 5 MG TAB PO SCH ×2 (08:21→21:08)
[2016-06-14] MEDS: metroNIDAZOLE 500 MG TAB PO SCH ×3 (08:22→21:08)
[2016-06-14] MEDS: LEVOFLOXACIN 750 MG TAB PO SCH (08:22)
[2016-06-14] MEDS: CALCIUM CARB-VIT D 500MG-200UN 1 EACH TAB PO SCH (08:22)
--- NOTE | 2016-06-14 08:46 | PN ---
DATE OF SERVICE: 06/13/2016 This 85 -year-old woman was admitted to the hospital with GI bleed and lower abdominal pain, possibly had colitis also. The patient has got an acute blood loss anemia. The patient was also seen by cardiology. continue current medications. evaluation has been in progress and abdominal pelvis CT scan has been ordered and reviewed, showed some thickening of the transverse colon. Past medical history reviewed. REVIEW OF SYSTEMS: CARDIOVASCULAR: No angina or palpitations. RESPIRATORY: No cough, shortness of breath. GASTROINTESTINAL: As mentioned earlier. : No dysuria. CENTRAL NERVOUS SYSTEM: No numbness or weakness. Current medications are reviewed and include: 1. Xanax 0.5. 2. Norvasc 5 mg b.i.d. 3. Lipitor 10 mg. 4. Os-Srinivasan with Vitamin D. 5. Coreg 6.25 b.i.d. 6. Levaquin 750 daily. 7. Cozaar. 8. Melatonin. 9. Flagyl. 10. Multivitamins. 11. Narcan. 12. Protonix. PHYSICAL EXAMINATION: The patient is alert and oriented times three. Pulse 75. Blood pressure 200/90. Respiratory rate 16. Temperature 97.7. Pulse ox 97% on room air. HEENT: Conjunctivae normal. NECK: No jugular venous distention. CARDIOVASCULAR: S1, S2 muffled. RESPIRATORY: Breath sounds diminished at the bases. Scattered rhonchi. No crackles. ABDOMEN: Soft, mild diffuse tenderness in the lower part. No guarding. No rigidity. No mass palpable. LEGS: No edema. No swelling. CENTRAL NERVOUS SYSTEM: Higher functions as mentioned earlier. Moves all four limbs. No focal deficits. LYMPHATICS: No lymph nodes palpable in the neck, axillae or groin. SKIN: No ulcer, rash or bleeding. LABS: At this time shows, hemoglobin 10.5. ASSESSMENT: 1. Acute lower gastrointestinal bleeding with with possibly colitis infectious or ischemic. 2. Hyponatremia. 3. History of coronary artery disease and stent. 4. Gastroesophageal reflux disease. 5. Hypertension. 6. Accelerated hypertension. 7. History of hiatal hernia. 8. History of cholecystectomy. 9. History of anxiety. 10. FULL CODE. 11. Mild hyponatremia on admission. RECOMMENDATIONS AND DISCUSSION: This 85 -year-old woman presented with multiple complex medical issues, we will monitor the patient closely, continue the current medications. Continue symptomatic treatment. Otherwise, at this time, recommend repeat labs. Hold off antiplatelet agents until cleared by gastroenterology. Continue to monitor. The patient previously had endoscopy over 10 years ago. Await gastroenterology input regarding that. Otherwise, continue to monitor. Monitor blood pressure closely and increase the medications. Use p.r.n. medications. See orders for details. Further recommendations to follow. MTDD
[2016-06-14] MEDS: ALPRAZolam 0.25 MG TAB PO PRN ×2 (13:05→21:08)
--- NOTE | 2016-06-14 14:25 | P.PN ---
Subjective Principal diagnosis: Lower GI bleed This is an 85-year-old female presenting to the hospital with significant lower GI bleeding with evidence of blood clots. She has a known history of coronary artery disease with prior PCI, hypertension, hyperlipidemia. Patient's blood pressure this morning 166/74, heart rate in the 70s. Scheduled for EGD today. We will increase the dose of Cozaar to 100 and morning and 50 in the evening. Objective - Vital Signs Vital signs: Vital Signs Temp 97.6 F 06/14/16 08:00 Pulse 75 06/14/16 08:00 Resp 16 06/14/16 04:00 BP 136/60 06/14/16 08:00 Pulse Ox 99 06/14/16 08:00 Intake & Output 06/13/16 06/14/16 06/14/16 18:59 06:59 18:59 Intake Total 700 560 Output Total 500 Balance 200 560 Weight 54.5 kg Intake: Oral 700 560 Output: Urine 500 Other: Voiding Method Toilet Toilet # Voids 1 1 - Exam PHYSICAL EXAMINATION: HEENT: Head is atraumatic, normocephalic. Pupils equal, round. Neck is supple. There is no elevated jugular venous pressure. HEART EXAMINATION: Heart S1, S2 normal. No murmur or gallop heard. CHEST EXAMINATION: Lungs reveal scattered coarse rhonchi throughout. ABDOMEN: Soft, nontender. Bowel sounds are heard. No organomegaly noted. EXTREMITIES: 2+ peripheral pulses with no evidence of peripheral edema and no calf tenderness noted. NEUROLOGIC patient is awake, alert and oriented -3. . - Labs CBC & Chem 7: 06/14/16 05:45 06/14/16 05:45 Labs: Abnormal Lab Results - Last 24 Hours (Table) 06/14/16 Range/Units 05:45 RBC 3.49 L (3.80-5.40) m/uL Hgb 11.0 L (11.4-16.0) gm/dL Hct 32.7 L (34.0-46.0) % Assessment and Plan (1) CAD (coronary artery disease) Status: Acute (2) HTN (hypertension) Status: Acute (3) Lower gastrointestinal hemorrhage Status: Acute (4) Hypertension Status: Acute Plan: Cardiology's perspective, we'll increase the dose of Cozaar to 100 in the morning and 50 in the evening. Patient will be scheduled for GI workup today. We will continue to follow. DNP note has been reviewed, I agree with a documented findings and plan of care. Patient was seen and examined.
[2016-06-14] MEDS: LOSARTAN 50 MG TAB PO SCH (17:04)
[2016-06-14] MEDS: MULTIVITAMINS, THERA 1 EACH TAB PO SCH (17:04)
[2016-06-14 20:11] LABS: Appearance,Urine Clear (Clear); Bacteria,Urine Rare /hpf; Bilirubin,Urine Negative (Negative); Glucose,Urine (UA) Negative (Negative); Ketones,Urine Negative (Negative); Leukocyte Esterase,Urine Moderate (Negative); Mucus,Urine Rare /hpf; Nitrite,Urine Negative (Negative); PH, Urine 6.5 (5.0-8.0); Particle Count 708; Protein,Urine Negative (Negative); RBC,Urine <1 /hpf (0-5); Specific Gravity,Urine 1.003 (1.001-1.035); Squamous Epithelial Cell,Urine <1 /hpf (0-4); UA Billing (MACRO vs. MICRO) MICRO; Urobilinogen,Urine <2.0 mg/dL (<2.0); WBC,Urine 9 /hpf (0-5)
[2016-06-14] MEDS: ATORVASTATIN 20 MG TAB PO SCH (21:08)
[2016-06-14] MEDS: MELATONIN 3 MG TABLET PO SCH (21:08)
[2016-06-14 21:11] VITALS: BMI 21.9
[2016-06-14] MEDS ORDERED: PEG 3350-NA SULF,BICARB,CL/KCL 4,000 ML BOTTLE PO ONE (22:49)
[2016-06-15] MEDS ORDERED: PEG 3350-NA SULF,BICARB,CL/KCL 4,000 ML BOTTLE PO ONE (05:00)
[2016-06-15 06:21] LABS: Basophils % (A) 0 %; CH 31.5; CHCM 33.4; Eosinophils # (A) 0.2 k/uL (0-0.7); Eosinophils % (A) 2 %; HCT 37.9 % (34.0-46.0); HDW 2.42; HGB 12.4 gm/dL (11.4-16.0); Luc # (Auto) 0.16; Luc % (Auto) 2; Lymphocytes # (A) 1.4 k/uL (1.0-4.8); Lymphocytes % (A) 18 %; MCHC 32.8 g/dL (31.0-37.0); MCV 94.7 fL (80.0-100.0); Mean Platelet Volume 6.6; Monocytes # (A) 0.5 k/uL (0-1.0); Monocytes % (A) 6 %; Neutrophils # (A) 5.6 k/uL (1.3-7.7); Neutrophils % (A) 71 %; RDW 11.9 % (11.5-15.5); WBC 7.9 k/uL (3.8-10.6); WBC (Perox) 8.32
--- NOTE | 2016-06-15 06:27 | PN ---
DATE OF SERVICE: 06/14/2016 This 85-year-old woman who was admitted with acute lower GI bleeding also had blood loss anemia. The patient also had accelerated hypertension. Cardiology and Gastroenterology are following the patient closely. No chest pain or palpitations. No fever. On exam, alert and oriented x3. Pulse is 81, blood pressure 144/63, respirations 18, temperature 97 degrees, pulse ox 99% on room air. HEENT: Conjunctivae normal. NECK: No jugular venous distention. CARDIOVASCULAR: S1 and S2, muffled. RESPIRATORY: Breath sounds diminished at the bases. No rhonchi, no crackles. ABDOMEN: Soft, nontender. No mass palpable. LEGS: No edema, no swelling. NERVOUS SYSTEM: No focal deficits. LABS: WBC 6.8, hemoglobin 11. ASSESSMENT: 1. Acute lower gastrointestinal bleeding with acute blood loss anemia, possibly colitis, infectious or ischemic, rule out diverticulosis. 2. Hyponatremia. 3. History of coronary artery disease and stent. 4. Gastroesophageal reflux disease. 5. Hypertension. 6. Accelerated hypertension. 7. History of hiatal hernia. 8. History of cholecystectomy. 9. History of anxiety. 10. Mild hyponatremia on admission, possibly hypovolemic. 11. FULL CODE. RECOMMENDATIONS AND DISCUSSION: This 85-year-old woman who presented with multiple complex medical issues, will monitor the patient closely. Continue the current medications. Continues symptomatic treatment. Otherwise, closely follow with Cardiology and Gastroenterology, possible endoscopy. Guarded prognosis. Further recommendations to follow.
[2016-06-15 06:30] LABS: Anion Gap 14 mmol/L; Blood Urea Nitrogen 9 mg/dL (7-17); Calcium 9.4 mg/dL (8.4-10.2); Carbon Dioxide 26 mmol/L (22-30); Chloride 96 mmol/L (98-107); Glucose 97 mg/dL (74-99); Non-African American GFR(MDRD) 60 (>60 ml/min/1.73 sqM); Potassium 3.9 mmol/L (3.5-5.1); Sodium 136 mmol/L (137-145)
[2016-06-15] MEDS: CARVEDILOL 6.25 MG TAB PO SCH ×2 (09:07→17:37)
[2016-06-15] MEDS: LOSARTAN 50 MG TAB PO SCH ×2 (09:07→17:37)
[2016-06-15] MEDS: CALCIUM CARB-VIT D 500MG-200UN 1 EACH TAB PO SCH (09:08)
[2016-06-15] MEDS: PANTOPRAZOLE 40 MG TABLET PO SCH (09:08)
[2016-06-15] MEDS: amLODIPine 5 MG TAB PO SCH ×2 (09:08→20:08)
[2016-06-15] MEDS: metroNIDAZOLE 500 MG TAB PO SCH ×3 (09:08→20:09)
[2016-06-15] MEDS ORDERED: LACTATED RINGERS 1,000 ML IV ONE (13:10)
[2016-06-15] MEDS ORDERED: PROPOFOL 10 MG/ML 20 ML VIAL IV ONE (13:10)
[2016-06-15] MEDS ORDERED: LIDOCAINE 1% INJ 10MG/ML (20 ML MDV) ONE (13:10)
[2016-06-15] MEDS ORDERED: IV FLUID CONTINUATION 1,000 ML IV ONE (13:10)
--- NOTE | 2016-06-15 13:37 | P.PN ---
Subjective Principal diagnosis: Lower GI bleed This is an 85-year-old female presenting to the hospital with significant lower GI bleeding with evidence of blood clots. She has a known history of coronary artery disease with prior PCI, hypertension, hyperlipidemia. Patient's blood pressure this morning 166/74, heart rate in the 70s. Scheduled for EGD and colonoscopy today. Blood pressure 142/64, heart rate in the 80s this morning. Hemoglobin 12.4 today. Objective - Vital Signs Vital signs: Vital Signs Temp 97.2 F L 06/15/16 12:55 Pulse 83 06/15/16 12:55 Resp 17 06/15/16 05:45 BP 143/65 06/15/16 12:55 Pulse Ox 97 06/15/16 12:55 Intake & Output 06/14/16 06/15/16 06/15/16 18:59 06:59 18:59 Intake Total 910 1390 240 Output Total 702 Balance 910 688 240 Weight 54.5 kg Intake: Oral 910 1390 240 Output: Urine 700 Stool 2 Other: Voiding Method Toilet Toilet # Voids 1 1 1 - Exam PHYSICAL EXAMINATION: HEENT: Head is atraumatic, normocephalic. Pupils equal, round. Neck is supple. There is no elevated jugular venous pressure. HEART EXAMINATION: Heart S1, S2 normal. No murmur or gallop heard. CHEST EXAMINATION: Lungs reveal scattered coarse rhonchi throughout. ABDOMEN: Soft, nontender. Bowel sounds are heard. No organomegaly noted. EXTREMITIES: 2+ peripheral pulses with no evidence of peripheral edema and no calf tenderness noted. NEUROLOGIC patient is awake, alert and oriented -3. . - Labs CBC & Chem 7: 06/15/16 05:45 06/15/16 05:45 Labs: Abnormal Lab Results - Last 24 Hours (Table) 06/14/16 06/15/16 Range/Units 19:49 05:45 Sodium 136 L (137-145) mmol/L Chloride 96 L (98-107) mmol/L Ur Leukocyte Esterase Moderate H (Negative) Urine WBC 9 H (0-5) /hpf Urine Bacteria Rare H (None) /hpf Urine Mucus Rare H (None) /hpf Assessment and Plan (1) CAD (coronary artery disease) Status: Acute (2) HTN (hypertension) Status: Acute (3) Lower gastrointestinal hemorrhage Status: Acute (4) Hypertension Status: Acute Plan: Cardiology's perspective, we will continue the patient on her current medications. Blood pressure much improved today overall. DNP note has been reviewed, I agree with a documented findings and plan of care. Patient was seen and examined.
--- NOTE | 2016-06-15 14:01 | P.PCN ---
Date of Procedure: 06/15/16 Procedure(s) Performed: Procedure: 1. Esophagogastroduodenoscopy and biopsy. 2. Total colonoscopy. Preoperative diagnosis: GI bleeding. Postoperative diagnosis: Mild antral gastritis. Normal colonoscopy. Preparation: GoLYTELY prep. Sedation: Was provided by anesthesia. Brief clinical history: The patient is an 85-year-old female who was admitted to the hospital with history of lower abdominal pain and blood in her stools. CT of the abdomen showed thickening of the bowel wall in the transverse colon. The patient was having some hypertension issues and we waited for few days before her blood pressure stabilized to proceed with this evaluation. The patient had a colonoscopy more than 10 years ago. The details are summarized in the history and physical and dictated consultation. Procedure: With the patient on her left lateral decubitus position and after informed consent and adequate sedation, I passed the Olympus-GIF 160 video upper endoscope through the cricopharyngeus down the esophagus. There was a very small less than 1 cm sliding hiatal hernia, otherwise, the esophagus appeared healthy with no erosions, ulcers, strictures or Leary's esophagus. No varices or mucosal tears or bleeding. The endoscope was then passed into the stomach which was insufflated with air and inspected in detail including the retroflex view in the cardia. There was minimal mottling and erythema in the antrum but no ulcers or erosions. Pyloric channel, duodenal bulb, post bulbar area and descending duodenum appeared within normal limits. I obtained biopsies from the antrum then the endoscope was withdrawn and I proceeded with the colonoscopy. Perianal area did not show any fissures or fistulas. There were no masses felt on digital rectal examination. The Olympus CFQ 160L videocolonoscope was then inserted in the rectum in the usual fashion and advanced to the cecum. The preparation was good. The mucosa appeared healthy. No obvious pathology was noted or any evidence of bleeding. I retroflexed endoscope in the rectum before the endoscope was withdrawn. The patient tolerated the procedure well. Plan: The patient was reassured. Will await biopsy results. Will allow diet and further plans based on her course.
--- NOTE | 2016-06-15 19:26 | PN ---
DATE OF SERVICE: 06/15/2016 This 85-year-old woman who was admitted with lower GI bleeding has got possibly colitis. Dr. Gross performed endoscopy. EGD showed mild antral gastritis. Colonoscopy was normal. No fever. No cough. On exam, alert and oriented x3. Pulse is 83, blood pressure 143/64, respiration 17, temperature 97.2, pulse ox 97% on room air. HEENT: Conjunctivae normal. NECK: No jugular venous distention. CARDIOVASCULAR SYSTEM: S1, S2 muffled. RESPIRATORY SYSTEM: Breath sounds diminished at the bases. A few scattered rhonchi. No crackles. ABDOMEN: Soft. Mild diffuse discomfort. No guarding or rigidity. No mass palpable. LEGS: No edema. No swelling. NERVOUS SYSTEM: No focal deficit. LABS: WBC 7.9, hemoglobin 12.4. Sodium 136. UA noted. ASSESSMENT: 1. Acute lower gastrointestinal bleeding with blood loss anemia, possibly colitis, infectious, with a normal colonoscopy. 2. Hyponatremia. 3. History of coronary artery disease and stent. 4. Antral gastritis on esophagogastroduodenoscopy. 5. Gastroesophageal reflux disease. 6. Hypertension. 7. Accelerated hypertension. 8. History of hiatal hernia. 9. History of cholecystectomy. 10. History of anxiety. 11. History of mild hyponatremia on admission, possibly hypovolemic. 12. FULL CODE. RECOMMENDATIONS AND DISCUSSION: I recommend to continue with the current medications, continue with the monitoring, symptomatic treatment. Otherwise, at this time we will continue to monitor. Biopsies are pending. Otherwise, repeat labs. Closely monitor. Further recommendations to follow.
[2016-06-15] MEDS: ATORVASTATIN 20 MG TAB PO SCH (20:08)
[2016-06-15] MEDS: MELATONIN 3 MG TABLET PO SCH (20:08)
[2016-06-16 08:06] VITALS: BP 110/55; PULSE 85; RESP 19; TEMP 98.5
--- NOTE | 2016-06-16 08:57 | P.PN ---
Subjective Principal diagnosis: GI bleed 85-year-old female admitted with lower GI bleed with blood tinged stool status post EGD colonoscopy yesterday with findings of mild antral gastritis and normal colonoscopy. No recurrence of bleeding. Feels well. Tolerating regular diet. Anticipating discharged today. Objective - Vital Signs Vital signs: Vital Signs Temp 98.5 F 06/16/16 07:00 Pulse 85 06/16/16 07:00 Resp 19 06/16/16 07:00 BP 110/55 06/16/16 07:00 Pulse Ox 95 06/16/16 07:00 Intake & Output 06/15/16 06/16/16 06/16/16 18:59 06:59 18:59 Intake Total 640 120 Output Total 350 Balance 640 -230 Weight 54.5 kg Intake: IV 400 Intake, IV Titration 0 Amount Lactated Ringers 1,000 ml 0 As IV [facility] Rx#: [id number] Oral 240 120 Output: Urine 350 Other: # Voids 0 1 # Bowel Movements 0 - Exam General appearance: The patient is alert, oriented, in no acute distress. HET: Head is normocephalic and atraumatic. Pupils are equal and reactive. Oropharynx is clear without lesions. Neck: Supple without lymphadenopathy. Trachea midline. Heart: S1 S2. Regular rate and rhythm. Lungs: No crackles or wheezes are heard. Abdomen: Soft, nontender, nondistended with bowel sounds. No peritoneal signs. No palpable organomegaly or masses. Extremities: Normal skin color and turgor. No cyanosis, rash, ulceration, clubbing, or edema. Radial and pedal pulses are 2/4 bilaterally. Neurological: No focal deficits. Strength and sensation are grossly intact. - Labs CBC & Chem 7: 06/15/16 05:45 06/15/16 05:45 Assessment and Plan (1) Lower gastrointestinal hemorrhage Narrative/Plan: 85-year-old female admitted with acute lower GI bleed with blood tinged bowel movement status post EGD colonoscopy with findings of mild antral gastritis and normal colonoscopy. Status: Acute (2) Acute blood loss anemia Narrative/Plan: Mild Status: Acute Plan: 1. Soft diet. 2. May resume Ecotrin. 3. Agreeable for discharge. 4. Will follow as needed. Return to office 7-10 days. Assessment and plan a care discussed with Dr. Gross.
[2016-06-16] MEDS ORDERED: LEVOFLOXACIN 750 MG TAB PO SCH (09:00)
[2016-06-16 09:12] LABS: Anion Gap 10 mmol/L; Blood Urea Nitrogen 11 mg/dL (7-17); Calcium 8.4 mg/dL (8.4-10.2); Carbon Dioxide 27 mmol/L (22-30); Chloride 97 mmol/L (98-107); Glucose 166 mg/dL (74-99); Non-African American GFR(MDRD) 60 (>60 ml/min/1.73 sqM); Potassium 3.7 mmol/L (3.5-5.1); Sodium 134 mmol/L (137-145)
[2016-06-16 10:03] LABS: Basophils % (A) 0 %; CH 31.8; Eosinophils % (A) 0 %; HCT 30.9 % (34.0-46.0); HDW 2.37; HGB 10.3 gm/dL (11.4-16.0); Luc # (Auto) 0.09; Luc % (Auto) 1; Lymphocytes # (A) 1.1 k/uL (1.0-4.8); Lymphocytes % (A) 12 %; MCH 31.2 pg (25.0-35.0); MCHC 33.2 g/dL (31.0-37.0); MCV 93.8 fL (80.0-100.0); Mean Platelet Volume 7.1; Monocytes # (A) 0.6 k/uL (0-1.0); Monocytes % (A) 6 %; Neutrophils # (A) 7.1 k/uL (1.3-7.7); Neutrophils % (A) 80 %; RBC 3.29 m/uL (3.80-5.40); RDW 11.8 % (11.5-15.5); WBC 8.9 k/uL (3.8-10.6); WBC (Perox) 9.31
[2016-06-16] MEDS: CARVEDILOL 6.25 MG TAB PO SCH (10:05)
[2016-06-16] MEDS: metroNIDAZOLE 500 MG TAB PO SCH (10:06)
[2016-06-16] MEDS: amLODIPine 5 MG TAB PO SCH ×2 (10:06→10:12)
[2016-06-16] MEDS: LOSARTAN 50 MG TAB PO SCH (10:07)
[2016-06-16] MEDS: PANTOPRAZOLE 40 MG TABLET PO SCH (10:07)
[2016-06-16] MEDS: CALCIUM CARB-VIT D 500MG-200UN 1 EACH TAB PO SCH (10:08)
--- NOTE | 2016-06-16 12:28 | XR ---
EXAMINATION TYPE: XR chest 2V DATE OF EXAM: 06/16/2016 12:11 PM COMPARISON: 10/09/2014 HISTORY: Fever FINDINGS: The lungs are clear and there is no pneumothorax, pleural effusion, or focal pneumonia. Hyperinflati on suggests COPD. Degenerative changes of the spine noted. Granuloma within both lungs are noted. IMPRESSION: 1. No acute process. 2. Correlate for COPD
[2016-06-16 13:17] LABS: Appearance,Urine Clear (Clear); Bacteria,Urine Rare /hpf; Bilirubin,Urine Negative (Negative); Glucose,Urine (UA) Negative (Negative); Ketones,Urine Negative (Negative); Leukocyte Esterase,Urine Moderate (Negative); Mucus,Urine Rare /hpf; Nitrite,Urine Negative (Negative); Particle Count 2455; Protein,Urine Trace (Negative); RBC,Urine 1 /hpf (0-5); Specific Gravity,Urine 1.014 (1.001-1.035); Squamous Epithelial Cell,Urine 1 /hpf (0-4); UA Billing (MACRO vs. MICRO) MICRO; Urobilinogen,Urine <2.0 mg/dL (<2.0); WBC,Urine 15 /hpf (0-5)
--- NOTE | 2016-06-19 17:55 | P.DS ---
Providers Date of admission: 06/11/16 19:13 Expected date of discharge: 06/16/16 Attending physician: Priya Escobar Consults: 06/12/16 18:43 Consult Physician Routine Consulting Provider: Lobo Boyle Consult Reason/Comments: CAD history, gi bleed Do you want consulting provider notified?: Yes GI, Dr. Gross Primary care physician: Mindy Gallardo [facility] Course: Final diagnoses. 1. [Acute lower GI bleed with acute blood loss anemia, status post EGD and colonoscopy reporting mild antral gastritis and normal colonoscopy]. 2. [Hyponatremia]. 3. [CAD with history of stent]. 4. [Gastroesophageal reflux disease]. 5. [Accelerated hypertension on admission, resolved. 6. [Hyponatremia, hypovolemic, improving]. Hospital course: This is a 85-year-old female admitted with lower abdominal pain , bright red blood in her stools, blood clots, accelerated hypertension and multiple other medical issues. Patient's last colonoscopy was 10 years ago, reporting diverticulosis. CT of the abdomen reported thickening transverse colon. Evaluated by both GI and cardiology. Antihypertensives adjusted, VSS. Underwent both EGD /colonoscopy with findings of mild antral gastritis and normal colonoscopy. Final biopsy results pending. Cleared for discharge by consults. Patient is being discharged home in stable condition with guarded prognosis. Patient Condition at Discharge: Stable Plan - Discharge Summary New Discharge Prescriptions: Carvedilol [Coreg] 6.25 mg PO BID-W/MEALS #60 tab amLODIPine BESYLATE [Norvasc] 2.5 mg PO BID #1 tab Discharge Medication List Aspirin EC [Ecotrin Low Dose] 162 mg PO DAILY 04/17/14 [History] Simvastatin [Zocor] 40 mg PO HS 04/17/14 [History] Ascorbic Acid [Vitamin C] 500 mg PO DAILY 06/06/16 [History] Multivitamins, Thera [Multivitamin] 1 tab PO Q48H 06/06/16 [History] Omeprazole 20 mg PO DAILY #60 cap 06/06/16 [Rx] ALPRAZolam [Xanax] 0.25 mg PO TID PRN 06/11/16 [History] Calcium Carbonate/Vitamin D3 [Calcium 600-Vit D3 200 Tablet] 1 tab PO DAILY [History] Carvedilol [Coreg] 6.25 mg PO BID-W/MEALS #60 tab 06/16/16 [Rx] Losartan [Cozaar] 100 mg PO DAILY@0800 #0 tab 06/16/16 [Rx] amLODIPine BESYLATE [Norvasc] 2.5 mg PO BID #1 tab 06/16/16 [Rx] Follow up Appointment(s)/Referral(s): [facility] [Provider Group] - 06/29/16 3:00 pm ([facility] Dr Ruiz) Jagdeep Gross MD [STAFF PHYSICIAN] - 06/28/16 4:00 pm Mindy Gallardo DO [Primary Care Provider] - 06/21/16 9:20 am Ambulatory/Diagnostic Orders: Complete Blood Count w/diff [LAB.AMB] Time Frame: 3 Days, Location: Determined By Patient Patient Instructions/Handouts: Gastrointestinal Bleeding (DC) Activity/Diet/Wound Care/Special Instructions: Diet: Soft cardiac Activity: Limited until follow up Discharge Disposition: HOME SELF-CARE
== END 2016-06-16 14:46 | disposition home or self-care (01) | DRG 378 ==
LOC: EC 17:32 → 6SEL 19:13 → 4MS4W 06-15 23:24
PROVIDERS: ADMIT Internal Medicine; ATTEND Internal Medicine
PROC: 0DB68ZX Excision of Stomach, Via Natural or Artificial Opening Endoscopic, Diagnostic (ICD-10-PCS; principal; 2016-06-15 08:30)
PROC: 0DJD8ZZ Inspection of Lower Intestinal Tract, Via Natural or Artificial Opening Endoscopic (ICD-10-PCS; 2016-06-15 08:30)
DX: K92.2 Gastrointestinal hemorrhage, unspecified (principal); D62 Acute posthemorrhagic anemia; E86.1 Hypovolemia; E87.1 Hypo-osmolality and hyponatremia; K52.9 Noninfective gastroenteritis and colitis, unspecified; K29.60 Other gastritis without bleeding; I10 Essential (primary) hypertension; K21.9 Gastro-esophageal reflux disease without esophagitis; K44.9 Diaphragmatic hernia without obstruction or gangrene; K57.30 Diverticulosis of large intestine without perforation or abscess without bleeding; I25.10 Atherosclerotic heart disease of native coronary artery without angina pectoris; F41.9 Anxiety disorder, unspecified; E78.5 Hyperlipidemia, unspecified; H54.7 Unspecified visual loss; H91.90 Unspecified hearing loss, unspecified ear; Z80.3 Family history of malignant neoplasm of breast; Z80.8 Family history of malignant neoplasm of other organs or systems; Z95.5 Presence of coronary angioplasty implant and graft; Z79.82 Long term (current) use of aspirin; Z79.899 Other long term (current) drug therapy; Z88.6 Allergy status to analgesic agent; Z88.5 Allergy status to narcotic agent; Z88.8 Allergy status to other drugs, medicaments and biological substances; Z90.49 Acquired absence of other specified parts of digestive tract
CPT/HCPCS: 36415; 43239; 45378; 71020; 74177; 80048; 80053; 81001; 82272; 85025; 85610; 85730; 86850; 86900; 86901; 87086; 88305; 88342; 99153; 99285

== ENCOUNTER 2016-08-20 22:39 | Observation (INO) | payer MEDICARE ==
[2016-08-20] MEDS ORDERED: LORazepam 2 MG/ML SYRINGE IV STA (23:37)
[2016-08-21] LABS: Basophils % (A) 0 %; CH 31.6; CHCM 34.4; Eosinophils # (A) 0.1 k/uL (0-0.7); Eosinophils % (A) 2 %; HCT 32.1 % (34.0-46.0); HDW 2.39; HGB 10.6 gm/dL (11.4-16.0); Luc # (Auto) 0.14; Luc % (Auto) 2; Lymphocytes # (A) 1.3 k/uL (1.0-4.8); Lymphocytes % (A) 19 %; MCH 30.4 pg (25.0-35.0); MCHC 32.9 g/dL (31.0-37.0); Mean Platelet Volume 7.5; Monocytes # (A) 0.4 k/uL (0-1.0); Monocytes % (A) 6 %; Neutrophils # (A) 4.8 k/uL (1.3-7.7); Neutrophils % (A) 71 %; RBC 3.48 m/uL (3.80-5.40); RDW 12.4 % (11.5-15.5); WBC 6.8 k/uL (3.8-10.6); WBC (Perox) 6.84
[2016-08-21 00:06] LABS: MCV 92.2 fL (80.0-100.0)
[2016-08-21 00:08] LABS: ALT 30 U/L (9-52); AST 23 U/L (14-36); Alkaline Phosphatase 48 U/L (38-126); Anion Gap 10 mmol/L; Blood Urea Nitrogen 34 mg/dL (7-17); Calcium 9.2 mg/dL (8.4-10.2); Carbon Dioxide 25 mmol/L (22-30); Chloride 100 mmol/L (98-107); Glucose 110 mg/dL (74-99); Non-African American GFR(MDRD) >60 (>60 ml/min/1.73 sqM); Potassium 4.4 mmol/L (3.5-5.1); Sodium 135 mmol/L (137-145); Total Bilirubin 0.3 mg/dL (0.2-1.3); Total Protein 6.3 g/dL (6.3-8.2)
--- NOTE | 2016-08-21 00:24 | XR ---
EXAM: XR Chest, 1 View. CLINICAL HISTORY: Reason: chest pain, weakness TECHNIQUE: Frontal view of the chest. COMPARISON: Chest radiograph on 06/16/2016 FINDINGS: Hardware: None. Lungs/pleura: Again seen is hyperinflation of the lungs which may represent COPD. Stable bilateral calcified granulomas. No focal consolidation. No pleural effusion or pneumothorax. Heart/mediastinum: Cardiomegaly, slightly increased in prominence compared to prior exam may be accentuated by technique. Soft tissues: Unremarkable. Bones: No acute fracture. Upper abdomen: Cholecystectomy clips in the right upper quadrant. IMPRESSION: Again seen is hyperinflation of the lungs which may be seen with COPD. No acute disease. Slightly increased cardiomegaly may be accentuated by differences in technique.
[2016-08-21] MEDS ORDERED: NITROGLYCERIN SL TABS 0.4 MG TAB SUBLINGUAL PRN (02:39)
--- NOTE | 2016-08-21 02:58 | ED ---
Chest Pain HPI - General Chief Complaint: Chest Pain Stated Complaint: chest pain Time Seen by Provider: 08/20/16 22:42 Source: EMS Mode of arrival: EMS Limitations: no limitations - History of Present Illness MD Complaint: chest pain -: hour(s) Onset: during rest Pain Location: substernal Pain Radiation: none, LUE, neck Severity: moderate Severity scale (1-10): 5 Quality: aching Consistency: constant Improves With: nitroglycerin Worsens With: nothing Treatments Prior to Arrival: aspirin, nitroglycerin, oxygen - Related Data Home Medications Medication Instructions Recorded Confirmed Aspirin EC [Ecotrin Low Dose] 162 mg PO QAM 04/17/14 08/20/16 Simvastatin [Zocor] 40 mg PO HS 04/17/14 08/20/16 Multivitamins, Thera [Multivitamin 1 tab PO Q48H 06/06/16 08/20/16 (formulary)] ALPRAZolam [Xanax] 0.125 mg PO TID PRN 06/11/16 08/20/16 Calcium Carbonate/Vitamin D3 1 tab PO BID 06/12/16 08/20/16 [Calcium 600-Vit D3 200 Tablet] Atenolol [Tenormin] 25 mg PO HS 08/20/16 08/20/16 Losartan Potassium [Cozaar] 100 mg PO HS 08/20/16 08/20/16 Ranitidine HCl [Zantac] 150 mg PO BID 08/20/16 08/20/16 Previous Rx's Medication Instructions Recorded amLODIPine BESYLATE [Norvasc] 2.5 mg PO BID #1 tab 06/16/16 Allergies Allergy/AdvReac Type Severity Reaction Status Date / Time metaxalone [From Skelaxin] Allergy Rash/Hives Verified 08/20/16 23:00 verapamil HCl [From Calan] Allergy Unknown Verified 08/20/16 23:00 naproxen AdvReac Severe Heartburn Verified 08/20/16 23:00 acetaminophen AdvReac Abdominal Verified 08/20/16 23:00 [From Tylenol-Codeine #3] Pain codeine phosphate AdvReac Abdominal Verified 08/20/16 23:00 [From Tylenol-Codeine #3] Pain quinapril HCl [From Accupril] AdvReac Rapid Verified 08/20/16 23:00 Heart Rate Review of Systems ROS Statement: Those systems with pertinent positive or pertinent negative responses have been documented in the HPI. ROS Other: All systems not noted in ROS Statement are negative. Constitutional: Denies: fever, chills, weakness Respiratory: Denies: cough, dyspnea, hemoptysis Cardiovascular: Reports: chest pain. Denies: palpitations, dyspnea on exertion , orthopnea, edema, syncope Gastrointestinal: Denies: abdominal pain, nausea, vomiting Genitourinary: Denies: dysuria Musculoskeletal: Denies: back pain Skin: Denies: rash Neurological: Denies: headache, weakness, numbness Psychiatric: Reports: anxiety EKG Findings - EKG Results: EKG: interpreted by ERMD, sinus rhythm, normal axis, normal ST/T, no acute changes - Blocks, [place], Hypertrophy, ST Abn: AV and intraventricular conduction: 1 AV block, right bundle branch block (fixed /intermittent, complete/incomplete) Past Medical History Past Medical History: Coronary Artery Disease (CAD), GERD/Reflux, Hypertension Additional Past Medical History / Comment(s): hiatal hernia, blood in stool History of Any Multi-Drug Resistant Organisms: None Reported Past Surgical History: Cholecystectomy, Heart Catheterization With Stent Additional Past Surgical History / Comment(s): stent to the Circumflex Past Anesthesia/Blood Transfusion Reactions: No Reported Reaction Date of Last Stent Placement:: 05/11/10 Past Psychological History: Anxiety Smoking Status: Never smoker Past Alcohol Use History: None Reported Past Drug Use History: None Reported - Past Family History Brother(s) Family Medical History: Cancer Additional Family Medical History / Comment(s): Throat cancer Father Family Medical History: Cancer Additional Family Medical History / Comment(s): anemia Sister(s) Family Medical History: Cancer Additional Family Medical History / Comment(s): breast cancer General Exam Limitations: no limitations General appearance: alert, in no apparent distress Head exam: Present: atraumatic, normocephalic, normal inspection Eye exam: Present: normal appearance. Absent: scleral icterus, conjunctival injection Neck exam: Present: normal inspection, full ROM Respiratory exam: Present: normal lung sounds bilaterally. Absent: respiratory distress, wheezes, rales, rhonchi, stridor Cardiovascular Exam: Present: regular rate, normal rhythm, normal heart sounds. Absent: systolic murmur, diastolic murmur, rubs, gallop GI/Abdominal exam: Present: soft. Absent: distended, tenderness, guarding, rebound, mass Extremities exam: Present: normal inspection, normal capillary refill. Absent: pedal edema, calf tenderness Back exam: Present: normal inspection. Absent: CVA tenderness (R), CVA tenderness (L) Neurological exam: Present: alert Skin exam: Present: warm, dry, intact, normal color. Absent: rash Course Vital Signs 08/20/16 08/20/16 08/20/16 22:45 23:08 23:12 Temperature 97.7 F 97.7 F Pulse Rate 91 Pulse Rate [ 75 91 Pulse Oximetery ] Respiratory 16 16 Rate Blood Pressure 173/77 Blood Pressure 173/77 [Supine] O2 Sat by Pulse 98 98 Oximetry 08/21/16 08/21/16 02:15 06:52 Temperature Pulse Rate 63 Pulse Rate [ 62 Pulse Oximetery ] Respiratory 16 20 Rate Blood Pressure 132/61 Blood Pressure 160/74 [Supine] O2 Sat by Pulse 96 96 Oximetry Disposition Clinical Impression: Chest pain Disposition: ADMITTED IP TO THIS HOSP Condition: Fair
[2016-08-21 06:36] LABS: Creatine Kinase 62 U/L (30-135)
[2016-08-21 06:49] LABS: Troponin I <0.012 ng/mL (0.000-0.034)
[2016-08-21] MEDS ORDERED: NON-FORMULARY DRUG (Aspirin Ec 162 MG) PO SCH (09:00)
[2016-08-21] MEDS: CALCIUM CARB-VIT D 500MG-200UN 1 EACH TAB PO SCH ×2 (09:22→18:47)
[2016-08-21] MEDS: FAMOTIDINE 20 MG TAB PO SCH ×2 (09:22→18:46)
[2016-08-21] MEDS: amLODIPine 2.5 MG TAB PO SCH ×2 (09:22→18:46)
[2016-08-21 11:42] LABS: Creatine Kinase 67 U/L (30-135)
[2016-08-21 11:54] LABS: Troponin I <0.012 ng/mL (0.000-0.034)
[2016-08-21] MEDS: MULTIVITAMINS, THERA 1 EACH TAB PO SCH (12:18)
[2016-08-21 13:06] VITALS: BMI 21.7
--- NOTE | 2016-08-21 17:30 | P.HPIM ---
History of Present Illness H&P Date: 08/21/16 84-year-old female with history of CAD status post PCI 2 comes in the hospital with complaints of chest pressure midsternal location radiating to her jaw. Patient apparently is seen by Dr. Ruiz. Patient underwent a stress test actually over 2 weeks ago at his office. However patient is unaware of the results of the test. Patient states that the she has been having intermittent chest pain 3 days. No alleviating or exacerbating factors are reported. Patient states that pain lasts about 20-30 minutes and is self-limiting. In the emergency room EKG did not reveal ST-T wave changes. Cardiac enzymes 1 was negative. Patient's last heart cath was in 2009. At the time of my evaluation patient is having chest pain however when patient walked to the bathroom and back patient did note a similar type of chest pressure. Review of Systems All systems: negative (Noted in HPI) Past Medical History Past Medical History: Coronary Artery Disease (CAD), GERD/Reflux, Hypertension Additional Past Medical History / Comment(s): hiatal hernia, blood in stool History of Any Multi-Drug Resistant Organisms: None Reported Past Surgical History: Cholecystectomy, Heart Catheterization With Stent Additional Past Surgical History / Comment(s): stent to the Circumflex Past Anesthesia/Blood Transfusion Reactions: No Reported Reaction Date of Last Stent Placement:: 05/11/10 Past Psychological History: Anxiety Smoking Status: Never smoker Past Alcohol Use History: None Reported Past Drug Use History: None Reported - Past Family History Brother(s) Family Medical History: Cancer Additional Family Medical History / Comment(s): Throat cancer Father Family Medical History: Cancer Additional Family Medical History / Comment(s): anemia Sister(s) Family Medical History: Cancer Additional Family Medical History / Comment(s): breast cancer Medications and Allergies Home Medications Medication Instructions Recorded Confirmed Type Aspirin EC [Ecotrin Low Dose] 162 mg PO QAM 04/17/14 08/20/16 History Simvastatin [Zocor] 40 mg PO HS 04/17/14 08/20/16 History Multivitamins, Thera [Multivitamin 1 tab PO Q48H 06/06/16 08/20/16 History (formulary)] ALPRAZolam [Xanax] 0.125 mg PO TID PRN 06/11/16 08/20/16 History Calcium Carbonate/Vitamin D3 1 tab PO BID 06/12/16 08/20/16 History [Calcium 600-Vit D3 200 Tablet] Atenolol [Tenormin] 25 mg PO HS 08/20/16 08/20/16 History Losartan Potassium [Cozaar] 100 mg PO HS 08/20/16 08/20/16 History Ranitidine HCl [Zantac] 150 mg PO BID 08/20/16 08/20/16 History Allergies Allergy/AdvReac Type Severity Reaction Status Date / Time metaxalone [From Skelaxin] Allergy Rash/Hives Verified 08/21/16 13:07 verapamil HCl [From Calan] Allergy Unknown Verified 08/21/16 13:07 naproxen AdvReac Severe Heartburn Verified 08/21/16 13:07 acetaminophen AdvReac Abdominal Verified 08/21/16 13:07 [From Tylenol-Codeine #3] Pain codeine phosphate AdvReac Abdominal Verified 08/21/16 13:07 [From Tylenol-Codeine #3] Pain quinapril HCl [From Accupril] AdvReac Rapid Verified 08/21/16 13:07 Heart Rate Physical Exam Vitals: Vital Signs Temp Pulse Pulse Resp BP BP BP 08/21/16 16:41 97.5 F L 65 18 153/68 08/21/16 13:00 97.6 F 64 18 185/82 08/21/16 12:19 97.8 F 63 18 153/74 08/21/16 10:59 62 18 153/71 08/21/16 10:00 64 18 169/79 08/21/16 09:00 98.2 F 58 L 18 164/72 08/21/16 08:00 50 L 18 174/72 08/21/16 07:00 50 L 18 151/69 08/21/16 06:52 62 20 160/74 Pulse Ox 08/21/16 16:41 99 08/21/16 13:00 100 08/21/16 12:19 99 08/21/16 10:59 100 08/21/16 10:00 100 08/21/16 09:00 100 08/21/16 08:00 100 08/21/16 07:00 100 08/21/16 06:52 96 Intake and Output 08/21/16 08/21/16 08/21/16 06:59 14:59 22:59 Intake Total 200 Balance 200 Intake: Oral 200 Other: Weight 53.977 kg 54.2 kg Patient Weight 08/22/16 06:59 Weight 54.2 kg Physical exam Gen. appearance oriented 3 in no distress Neck is supple no JVD Lungs good air entry clear to auscultation no rhonchi or wheezing Heart S1-S2 heard regular rate and rhythm no murmurs appreciated Abdomen is soft nontender no organomegaly bowel sounds are intact Neurologically cranial nerves II-12 grossly intact no focal motor or sensory deficits noted Skin no abnormalities appreciated Results CBC & Chem 7: 08/20/16 23:16 08/20/16 23:16 Thrombosis Risk Factor Assmnt - Choose All That Apply Each Risk Factor Represents 3 Points: Age 75 years or older Thrombosis Risk Factor Assessment Total Risk Factor Score: 3 Thrombosis Risk Factor Assessment Level: Moderate Risk Assessment and Plan Plan: #1 atypical chest pain rule out ACS #2 history of CAD. #3 anxiety. #4 protein calorie malnutrition that is moderate #5 history of hypertension #6 dyslipidemia Plan Cardiac enzymes 3. Patient recently underwent a stress test however chest pain does have some features of a cardiac nature. We'll defer to the procedure rn in regards to heart catheterization. Medications were reconciled. Nitroglycerin when necessary Aspirin was given.
[2016-08-21] MEDS: LOSARTAN 50 MG TAB PO SCH (18:47)
--- NOTE | 2016-08-21 20:41 | CONS ---
Mrs. Wilson is an 85-year-old female who presented with symptoms of chest discomfort. Patient follows on a regular basis with Dr. Yahaira Ruiz, has a known history of coronary artery disease, status post percutaneous revascularization done by Dr. Libertad Lombardi in November 2000, at that time received a bare-metal stent to the ostial left circumflex. She was at rest today when she had an episode of chest discomfort that persisted for about 1/2 hour and came into the emergency room for subsequent evaluation. She is average in exercise tolerance, had no symptoms of exertional chest pain. She has some palpitation on and off, but no clear exertional angina. She was in the hospital in May with GI bleeding. Subsequently, she had dizziness from carvedilol and that was changed. She had no recurrent bleeding. She has no PND, orthopnea. No syncope or peripheral edema. She has the palpitation, occasional dizziness as noted. She underwent stress test in July of this year, but the results are not available to me. Her coronary risk factors are remarkable for history of hypertension, hyperlipidemia. She is nondiabetic, nonsmoker. Her medications include: 1. Aspirin. 2. Tenormin 25 mg daily. 3. Losartan 100 mg daily. 4. Simvastatin 40 mg daily. 5. Amlodipine 2.5 mg twice a day. REVIEW OF SYSTEMS: RESPIRATORY: She has no wheezing. No cough. No history of documented obstructive lung disease. GI: She had recent GI bleeding. No recurrence. No nausea or vomiting. : No dysuria or hematuria. NERVOUS: No stroke or seizure. PHYSICAL EXAMINATION: She is an 85-year-old female; alert, oriented, in no apparent distress. Blood pressure running in the 150s with a heart rate in the 60s. HEAD: Normocephalic. EYES: Sclerae anicteric. NECK: Good carotid upstroke. No bruits. No jugular venous distention. LUNGS: Clear to auscultation. HEART: Regular rate and rhythm. S1, S2. No S3. No rub with a systolic murmur. ABDOMEN: Soft, nontender. Positive bowel sounds. No organomegaly. EXTREMITIES: No edema. Intact distal pulses. Lab data revealed troponin less than 0.012 for 3 samples. BUN and creatinine 34 and 0.86. Hemoglobin of 10.6. EKG revealed a sinus mechanism, normal axis with a right bundle branch block with a 1st degree AV block. IMPRESSION: 1. Chest discomfort of unclear etiology. No evidence of acute coronary syndrome in a patient with known history of coronary artery disease, status post percutaneous revascularization in the past. 2. Hypertension, borderline elevated this time. 3. History of hyperlipidemia. 4. Recent episode of gastrointestinal bleeding. RECOMMENDATION: Will follow her blood pressure. I will follow her hemoglobin and renal function. I will review the results of the stress test that was done in the office recently and depending on that, further recommendation will be made. Thank you for this consult. We will follow with you.
[2016-08-21] MEDS: ATORVASTATIN 20 MG TAB PO SCH (21:17)
[2016-08-21] MEDS: ATENOLOL 25 MG TAB PO SCH (21:17)
[2016-08-21] MEDS: ALPRAZolam 0.25 MG TAB PO PRN (23:43)
[2016-08-22 07:23] LABS: CH 31.4; CHCM 33.5; HCT 33.6 % (34.0-46.0); HDW 2.28; HGB 11.7 gm/dL (11.4-16.0); MCH 32.5 pg (25.0-35.0); MCHC 34.7 g/dL (31.0-37.0); MCV 93.8 fL (80.0-100.0); Mean Platelet Volume 6.8; RBC 3.58 m/uL (3.80-5.40); RDW 12.2 % (11.5-15.5); WBC 5.1 k/uL (3.8-10.6)
[2016-08-22 07:35] LABS: Anion Gap 6 mmol/L; Blood Urea Nitrogen 25 mg/dL (7-17); Calcium 9.4 mg/dL (8.4-10.2); Carbon Dioxide 28 mmol/L (22-30); Chloride 104 mmol/L (98-107); Cholesterol 104 mg/dL (<200); Glucose 83 mg/dL (74-99); HDL Cholesterol 60 mg/dL (40-60); Non-African American GFR(MDRD) 60 (>60 ml/min/1.73 sqM); Potassium 4.8 mmol/L (3.5-5.1); Sodium 138 mmol/L (137-145); Triglycerides 53 mg/dL (<150)
[2016-08-22] MEDS: CALCIUM CARB-VIT D 500MG-200UN 1 EACH TAB PO SCH ×3 (08:20→20:09)
[2016-08-22] MEDS: FAMOTIDINE 20 MG TAB PO SCH ×2 (08:20→20:09)
[2016-08-22] MEDS: ASPIRIN 325 MG TAB PO SCH (08:20)
[2016-08-22] MEDS: amLODIPine 2.5 MG TAB PO SCH ×2 (08:20→23:36)
[2016-08-22] MEDS ORDERED: ISOSORBIDE MONONITRATE ER 30 MG TAB.ER.24H PO SCH (09:00)
--- NOTE | 2016-08-22 09:18 | PN ---
Mrs. Wilson is an 85-year-old female with known history of coronary artery disease, who presented with symptoms of chest discomfort and symptoms of palpitations. She has mild discomfort this morning, worse with palpation. Otherwise, her breathing has been stable. She denies any dizziness or syncope. No peripheral edema. She has been ambulating in the room without any difficulty. She continues to be at this time on aspirin, atenolol 25 mg daily, losartan 100 mg daily, amlodipine 2.5 mg twice a day. PHYSICAL EXAMINATION: Blood pressure running in the 130s to 170s with a heart rate in the 60s. LUNGS: Clear. HEART: Regular rate and rhythm. S1, S2, no S3, with a systolic murmur. Chest wall with mild tenderness. ABDOMEN: Soft, nontender. EXTREMITIES: No edema. Lab data revealed a troponin less than 0.012 for 3 samples. Cholesterol 104, LDL of 33, BUN and creatinine 25 and 0.9. Hemoglobin of 11.7. Her stress test obtained on August 02 revealed no evidence of inducible ischemia with a normal systolic function. IMPRESSION: 1. Chest discomfort of unclear etiology has atypical feature for ischemic heart disease, probably noncardiac. 2. Hypertension. 3. Hyperlipidemia. RECOMMENDATIONS: From the cardiac standpoint, I will add to her regimen oral nitrate for possible vasospastic disease. She should be able to be discharged home today and follow up as an outpatient with Dr. Ruiz to further evaluate her status and guide her treatment. I have discussed those findings with the patient and she is in full understanding and agreement. Thank you for this consult. We will follow with you.
[2016-08-22] MEDS: ALPRAZolam 0.25 MG TAB PO PRN ×2 (10:30→23:36)
--- NOTE | 2016-08-22 17:46 | P.PN ---
Subjective 84-year-old female with history of CAD status post PCI 2 comes in the hospital with complaints of chest pressure midsternal location radiating to her jaw. Patient apparently is seen by Dr. Ruiz. Patient underwent a stress test actually over 2 weeks ago at his office. However patient is unaware of the results of the test. Patient states that the she has been having intermittent chest pain 3 days. No alleviating or exacerbating factors are reported. Patient states that pain lasts about 20-30 minutes and is self-limiting. In the emergency room EKG did not reveal ST-T wave changes. Cardiac enzymes 1 was negative. Patient's last heart cath was in 2009. At the time of my evaluation patient is having chest pain however when patient walked to the bathroom and back patient did note a similar type of chest pressure. 08/22/16 pt was started on imdur, then was noted to significant symptomatic hypotension. Denies chest pain, nausea, vomiting, diarrhea at this time. Objective - Vital Signs Vital signs: Vital Signs Temp 97.8 F 08/22/16 16:00 Pulse 60 08/22/16 17:24 Resp 16 08/22/16 16:00 BP 131/61 08/22/16 17:24 Pulse Ox 97 08/22/16 16:00 Intake & Output 08/21/16 08/22/16 08/22/16 18:59 06:59 18:59 Intake Total 200 640 537 Balance 200 640 537 Weight 54.2 kg Intake: Oral 200 640 537 Other: # Voids 2 - Constitutional General appearance: Present: no acute distress - EENT Eyes: Present: EOMI, PERRLA - Neck Neck: Present: normal ROM - Respiratory Respiratory: bilateral: CTA, negative: rales, rhonchi, wheezing - Cardiovascular Rhythm: regular Heart sounds: normal: S1, S2 Abnormal Heart Sounds: Absent: systolic murmur - Gastrointestinal General gastrointestinal: Present: normal bowel sounds, soft. Absent: organomegaly - Integumentary Integumentary: Present: normal - Neurologic Neurologic: Present: CNII-XII intact. Absent: focal deficits - Musculoskeletal Musculoskeletal: Present: strength equal bilaterally - Psychiatric Psychiatric: Present: A&O x's 3, appropriate affect - Labs CBC & Chem 7: 08/22/16 06:31 08/22/16 06:31 Labs: Abnormal Lab Results - Last 24 Hours (Table) 08/22/16 08/22/16 Range/Units 06:31 06:31 RBC 3.58 L (3.80-5.40) m/uL Hct 33.6 L (34.0-46.0) % BUN 25 H (7-17) mg/dL Assessment and Plan Plan: #1 atypical chest pain rule out ACS #2 history of CAD. #3 anxiety. #4 protein calorie malnutrition that is moderate #5 history of hypertension #6 dyslipidemia #7 symptomatic hypotension, sec to Imdur? Plan continue monitering for another 24 hrs No chest pain reported. repeat labs in the am.
[2016-08-22] MEDS: ATORVASTATIN 20 MG TAB PO SCH (20:15)
[2016-08-22] MEDS: ATENOLOL 25 MG TAB PO SCH (20:15)
[2016-08-22] MEDS: LOSARTAN 50 MG TAB PO SCH (23:36)
[2016-08-23 07:18] LABS: Basophils % (A) 0 %; CH 31.4; CHCM 33.4; Eosinophils # (A) 0.1 k/uL (0-0.7); Eosinophils % (A) 2 %; HCT 32.2 % (34.0-46.0); HDW 2.31; HGB 10.7 gm/dL (11.4-16.0); Luc # (Auto) 0.18; Luc % (Auto) 3; Lymphocytes # (A) 1.7 k/uL (1.0-4.8); Lymphocytes % (A) 30 %; MCH 31.3 pg (25.0-35.0); MCHC 33.1 g/dL (31.0-37.0); MCV 94.4 fL (80.0-100.0); Mean Platelet Volume 6.7; Monocytes # (A) 0.3 k/uL (0-1.0); Monocytes % (A) 6 %; Neutrophils # (A) 3.3 k/uL (1.3-7.7); Neutrophils % (A) 58 %; RBC 3.41 m/uL (3.80-5.40); RDW 12.6 % (11.5-15.5); WBC 5.7 k/uL (3.8-10.6); WBC (Perox) 5.95
[2016-08-23 07:48] LABS: ALT 29 U/L (9-52); AST 21 U/L (14-36); Alkaline Phosphatase 41 U/L (38-126); Anion Gap 8 mmol/L; Blood Urea Nitrogen 23 mg/dL (7-17); Calcium 9.2 mg/dL (8.4-10.2); Carbon Dioxide 28 mmol/L (22-30); Chloride 103 mmol/L (98-107); Glucose 85 mg/dL (74-99); Non-African American GFR(MDRD) 59 (>60 ml/min/1.73 sqM); Potassium 4.6 mmol/L (3.5-5.1); Sodium 139 mmol/L (137-145); Total Bilirubin 0.6 mg/dL (0.2-1.3); Total Protein 5.9 g/dL (6.3-8.2)
[2016-08-23 07:49] VITALS: RESP 16
[2016-08-23] MEDS: FAMOTIDINE 20 MG TAB PO SCH (08:25)
[2016-08-23] MEDS: amLODIPine 2.5 MG TAB PO SCH (08:26)
[2016-08-23] MEDS: MULTIVITAMINS, THERA 1 EACH TAB PO SCH (09:47)
[2016-08-23] MEDS: ASPIRIN 325 MG TAB PO SCH (09:47)
[2016-08-23] MEDS: CALCIUM CARB-VIT D 500MG-200UN 1 EACH TAB PO SCH (09:47)
--- NOTE | 2016-08-23 14:55 | PN ---
Mrs. Wilson is an 85-year-old female with known history of coronary artery disease, who presented with chest burning that has been going on constantly for the last week. Yesterday, she received isosorbide mononitrate, but she dropped her blood pressure and was kept overnight. She is feeling well this morning. She still has some burning not related to physical activity and has not respirophasic pattern to it. She denies any dizziness or palpitation. Her blood pressure has been stable. She denies any nausea. She continues to be on atenolol 25 mg daily, aspirin once a day, losartan 100 mg daily and amlodipine 2.5 mg twice a day. PHYSICAL EXAMINATION: Blood pressure running in the 140s with a heart in the 60s. LUNGS: Clear. HEART: Regular rate and rhythm. S1 and S2, no S3, with systolic murmur. No diastolic murmur. No rub. ABDOMEN: Soft, nontender. EXTREMITIES: No edema. Lab data revealed BUN and creatinine 23 and 0.91, potassium 4.6. IMPRESSION: 1. Chest discomfort of unclear etiology. The patient had a myocardial perfusion imaging done recently that revealed no evidence of inducible ischemia. 2. History of coronary artery disease. 3. Transient hypotension after nitrate, resolved. 4. History of hypertension. RECOMMENDATION: I will increase her level of activity today. If she has any worsening symptoms, then I will have Dr. Yahaira Ruiz to proceed with coronary angiography. Otherwise, if she is stable, she should be able to be discharged home today and follow up with Dr. Ruiz as an outpatient. Depending on her progress, further recommendation will be made.
[2016-08-23 16:02] VITALS: BP 136/63; PULSE 63; TEMP 98.1
--- NOTE | 2016-08-23 20:25 | P.DS ---
Providers Date of admission: 08/21/16 02:42 Attending physician: Jayda Mccrary Primary care physician: Mindy Woodardarlo [facility] Course: 84-year-old female with history of CAD status post PCI 2 comes in the hospital with complaints of chest pressure midsternal location radiating to her jaw. Patient apparently is seen by Dr. Ruiz. Patient underwent a stress test actually over 2 weeks ago at his office. However patient is unaware of the results of the test. Patient states that the she has been having intermittent chest pain 3 days. No alleviating or exacerbating factors are reported. Patient states that pain lasts about 20-30 minutes and is self-limiting. In the emergency room EKG did not reveal ST-T wave changes. Cardiac enzymes 1 was negative. Patient's last heart cath was in 2009. At the time of my evaluation patient is having chest pain however when patient walked to the bathroom and back patient did note a similar type of chest pressure. 08/22/16 pt was started on imdur, then was noted to significant symptomatic hypotension. Denies chest pain, nausea, vomiting, diarrhea at this time. Objective - Constitutional General appearance: Present: no acute distress - EENT Eyes: Present: EOMI, PERRLA - Neck Neck: Present: normal ROM - Respiratory Respiratory: bilateral: CTA, negative: rales, rhonchi, wheezing - Cardiovascular Rhythm: regular Heart sounds: normal: S1, S2 Abnormal Heart Sounds: Absent: systolic murmur - Gastrointestinal General gastrointestinal: Present: normal bowel sounds, soft. Absent: organomegaly - Integumentary Integumentary: Present: normal - Neurologic Neurologic: Present: CNII-XII intact. Absent: focal deficits - Musculoskeletal Musculoskeletal: Present: strength equal bilaterally - Psychiatric Psychiatric: Present: A&O x's 3, appropriate affect - Assessment and Plan Plan: #1 atypical chest pain, ACS was ruled out. #2 history of CAD. #3 anxiety. #4 protein calorie malnutrition that is moderate #5 history of hypertension #6 dyslipidemia #7 symptomatic hypotension, sec to Imdur? Tolerated ambulation without reproducibility of chest pain Will dc home to follow up with Dr Ruiz, if pt's symptoms persist, may need a cardiac anigography. This was discussed with the pt, and verbalized to understand the above findings. Patient Condition at Discharge: Fair Plan - Discharge Summary Discharge Medication List Aspirin EC [Ecotrin Low Dose] 162 mg PO QAM 04/17/14 [History] Simvastatin [Zocor] 40 mg PO HS 04/17/14 [History] Multivitamins, Thera [Multivitamin (formulary)] 1 tab PO Q48H 06/06/16 [History] ALPRAZolam [Xanax] 0.125 mg PO TID PRN 06/11/16 [History] Calcium Carbonate/Vitamin D3 [Calcium 600-Vit D3 200 Tablet] 1 tab PO BID [History] amLODIPine BESYLATE [Norvasc] 2.5 mg PO BID #1 tab 06/16/16 [Rx] Atenolol [Tenormin] 25 mg PO HS 08/20/16 [History] Losartan Potassium [Cozaar] 100 mg PO HS 08/20/16 [History] Ranitidine HCl [Zantac] 150 mg PO BID 08/20/16 [History] Follow up Appointment(s)/Referral(s): Mindy Gallardo DO [Primary Care Provider] - 1-2 days Michelle Ruiz MD [STAFF PHYSICIAN] - 1 Week Patient Instructions/Handouts: Chest Pain (GEN) Discharge Disposition: HOME SELF-CARE
[2016-08-24] MEDS ORDERED: FAMOTIDINE 20 MG TAB PO SCH (09:00)
== END 2016-08-23 18:27 | disposition home or self-care (01) ==
LOC: EC 22:39 → 3OBS 08-21 02:42
PROVIDERS: ADMIT Hospitalist; ATTEND Hospitalist
DX: R07.89 Other chest pain (principal); E44.0 Moderate protein-calorie malnutrition; E78.5 Hyperlipidemia, unspecified; F41.9 Anxiety disorder, unspecified; I10 Essential (primary) hypertension; I25.10 Atherosclerotic heart disease of native coronary artery without angina pectoris; K21.9 Gastro-esophageal reflux disease without esophagitis; Z79.899 Other long term (current) drug therapy; Z95.5 Presence of coronary angioplasty implant and graft; I95.9 Hypotension, unspecified; Z79.82 Long term (current) use of aspirin; Z88.6 Allergy status to analgesic agent; Z88.5 Allergy status to narcotic agent; Z88.8 Allergy status to other drugs, medicaments and biological substances; R42 Dizziness and giddiness; R00.2 Palpitations; I45.10 Unspecified right bundle-branch block; I44.0 Atrioventricular block, first degree
CPT/HCPCS: 96374 ×2; 99285 ×2; 36415; 93005; 80061; 80053 ×2; 80048; 82550; 82553; 83735; 84484 ×2; 85025 ×2; 85027; 71010; G0378 ×3; J2060

== ENCOUNTER → 2018-10-18 | Outpatient (CLI) | payer MEDICARE ==
--- NOTE | 2018-10-19 17:10 | BD ---
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 Bone mineral density as measured about the Lumbar spine is: ----- L1-L4(G/cm2): 1.150 T Score Values are as follows: ----- L2: -0.3 ----- L3: -0.6 ----- L4: -0.2 ----- L1-L4: -0.2 Bone mineral density has: INCREASED 5.8 % since study of: 2012 Bone mineral density about the R hip (g/cm2): 0.814 Bone mineral density about the L hip (g/cm2): 0.736 T Score values are as follows: -----R Neck: -1.6 -----L Neck: -2.2 -----R Total: -1.2 -----L Total: -1.4 Bone mineral density has: DECREASED -0.2 % since study of: 2012 IMPRESSION: Osteopenia (T Score between -2.5 and -1). There is slightly increased risk of fracture and the patient may be considered for treatment. Re-Screen 2-5 years. NOTE: T-SCORE=SD OF THE YOUNG ADULT MEAN.
== END ==
LOC: RADBDWWP 09:38
PROVIDERS: ATTEND Family Medicine
DX: M85.80 Other specified disorders of bone density and structure, unspecified site (principal); Z78.0 Asymptomatic menopausal state
CPT/HCPCS: 77080

== ENCOUNTER → 2018-11-17 | Outpatient (CLI) | payer MEDICARE ==
--- NOTE | 2018-11-17 12:45 | CT ---
EXAMINATION TYPE: CT abdomen pelvis w con DATE OF EXAM: 11/17/2018 COMPARISON: 06/11/2016 HISTORY: Lower abdominal pain x2 weeks CT DLP: 398.5 mGycm CONTRAST: CT scan of the abdomen and pelvis is performed with Oral Contrast and with IV Contrast, patient injec adia with 100 mL of Isovue 300. FINDINGS: LUNG BASES-: No visible nodule. No infiltrate. LIVER/GB: Cholecystectomy clips are in place. There is evidence of hepatic steatosis. Prominent Ri mayra's lobe. No space occupying hepatic lesion. Biliary tree is of normal caliber. PANCREAS: No inflammation. No distinct mass. SPLEEN: No splenic enlargement. No lesion seen. ADRENALS: No nodule. No thickening. KIDNEYS/BLADDER: No hydronephrosis. No nephrolithiasis. Left renal parapelvic cysts. Urinary bladde r grossly unremarkable. BOWEL: Normal appendix. Normal bowel caliber. No inflammation. Small sliding-type hiatal hernia not ed. GENITAL ORGANS: No gross abnormality. LYMPH NODES: No greater than 1cm abdominal or pelvic lymph nodes are appreciated. AORTA: No significant abnormality. OSSEOUS STRUCTURES: Sacral Tarlov cysts noted. Degenerative changes lumbar spine. OTHER: Left inguinal fat-containing hernia. IMPRESSION: 1. Hepatic steatosis with prominent Amber's lobe. 2. Left-sided renal parapelvic cysts. 3. Sigmoid diverticulosis without diverticulitis.
== END | disposition home or self-care (01) ==
LOC: RADCTMAIN 10:36
PROVIDERS: ATTEND Family Medicine
DX: K76.0 Fatty (change of) liver, not elsewhere classified (principal); N28.1 Cyst of kidney, acquired; K57.30 Diverticulosis of large intestine without perforation or abscess without bleeding
CPT/HCPCS: 74177; Q9967

== ENCOUNTER → 2019-05-10 | Outpatient (CLI) | payer MEDICARE ==
--- NOTE | 2019-05-10 15:32 | US ---
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 Patient states mini stroke in eye EXAM MEASUREMENTS: RIGHT: Peak Systolic Velocity (PSV) cm/sec ----- Right CCA: 112.8 ----- Right ICA: 127.0 ----- Right ECA: 158.9 ICA/CCA ratio: 1.1 RIGHT: End Diastole cm/sec ----- Right CCA: 22.0 ----- Right ICA: 10.7 ----- Right ECA: 0.0 LEFT: Peak Systolic Velocity (PSV) cm/sec ----- Left CCA: 130.2 ----- Left ICA: 139.2 ----- Left ECA: 106.0 ICA/CCA ratio: 1.1 LEFT: End Diastole cm/sec ----- Left CCA: 17.1 ----- Left ICA: 24.8 ----- Left ECA: 0.0 VERTEBRALS (direction of flow): Right Vertebral: Antegrade Left Vertebral: Antegrade Rhythm: Arrhythmia large amounts of calcified plaque bilaterally IMPRESSION: 1. Although there are large amounts of bilateral calcified plaque the plaque appears dispersed longit udinally and therefore there is no hemodynamically significant stenosis by consensus criteria. CTA ne ck however is recommended for further evaluation given the large amount of plaque in the patient's sy mptoms. 2. Cardiac arrhythmia is incidentally noted. Correlate with EKG. Criteria for Assigning % of Stenosis / Diameter reduction (Estimation based on the indirect measurements of the internal carotid artery velocities (ICA PSV). 1. Normal (no stenosis)=ICA PSV < 125 cm/s: ratio < 2.0: ICA EDV<40 cm/s. 2. Less than 50% stenosis=ICA PSV < 125 cm/s: ratio < 2.0: ICA EDV<40 cm/s. 3. 50 to 69% stenosis=ICA PSV of 125 to 230 cm/s: ration 2.0 ? 4.0: ICA EDV 40-100 cm/s. 4. Greater than 70% stenosis to near occlusion= ICA PSV > 230 cm/s: ratio > 4.0: ICA EDV > 100 cm/s. 5. Near occlusion= ICA PSV velocities may be low or undetectable: variable ratio and ICA EDV. 6. Total occlusion=unable to detect flow.
--- NOTE | 2019-05-11 10:38 | ECHOF ---
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 This was a technically good study. The left ventricular size is normal. There is mild concentric left ventricular hypertrophy. Overa ll left ventricular systolic function is normal with, an EF between 55 - 60 %. The right ventricle is normal in size. The left atrium is markedly dilated. LA is severely dilated >40 ml/m2 The right atrium is mildly enlarged. Can't Rule out ASD/PFO. There is mild aortic valve sclerosis. There is mild aortic regurgitation. Mild mitral annular calcification present. Mild mitral regurgitation is present. Moderate tricuspid regurgitation present. There is moderate to severe pulmonary hypertension. The right ventricular systolic pressure, as measured by Doppler, is 65.22mmHg. Trace/mild (physiologic) pulmonic regurgitation. The aortic root size is normal. There is no pericardial effusion. CONCLUSIONS -------- 1. Sinus rhythm. 2. This was a technically good study. 3. The left ventricular size is normal. 4. There is mild concentric left ventricular hypertrophy. 5. Overall left ventricular systolic function is normal with, an EF between 55 - 60 %. 6. The right ventricle is normal in size. 7. The left atrium is markedly dilated. 8. LA is severely dilated >40 ml/m2 9. The right atrium is mildly enlarged. 10. Can't Rule out ASD/PFO. 11. There is mild aortic valve sclerosis. 12. There is mild aortic regurgitation. 13. Mild mitral annular calcification present. 14. Mild mitral regurgitation is present. 15. Moderate tricuspid regurgitation present. 16. There is moderate to severe pulmonary hypertension. 17. The right ventricular systolic pressure, as measured by Doppler, is 65.22mmHg. 18. Trace/mild (physiologic) pulmonic regurgitation. 19. The aortic root size is normal. 20. There is no pericardial effusion. TITLE CLOSER: Yue Garrido RDCS
== END | disposition home or self-care (01) ==
LOC: RADUSWWP 14:26
PROVIDERS: ATTEND Ophthalmology
DX: I65.23 Occlusion and stenosis of bilateral carotid arteries (principal); G45.3 Amaurosis fugax
CPT/HCPCS: 93306; 93880

== ENCOUNTER → 2021-09-28 | Outpatient (CLI) | payer MEDICARE ==
--- NOTE | 2021-09-28 13:17 | US ---
EXAMINATION TYPE: US kidneys/renal and bladder DATE OF EXAM: 09/28/2021 COMPARISON: CT abdomen and pelvis November 17, 2018 CLINICAL HISTORY: R94.4 Abn kidney functions. abnormal kidney function EXAM MEASUREMENTS: Right Kidney: 9.9 x 3.7 x 4.0 cm Left Kidney: 8.8 x 4.1 x 2.7 cm Right Kidney: no evidence of hydronephrosis Left Kidney: thin renal cortex Bladder: wnl Bilateral Jets seen: no There is no evidence for hydronephrosis at this point in time. Central simple apparent parapelvic cys ts on 2019 CT less well seen on ultrasound images saved. Increased cortical echogenicity bilaterally. No nephrolithiasis is seen. No masses are identified. The urinary bladder is adequately distended. Bilateral ureteral jets are not seen. IMPRESSION: Evidence of chronic medical renal disease. No hydronephrosis noted bilaterally.
== END | disposition home or self-care (01) ==
LOC: RADUSWWP 11:58
PROVIDERS: ATTEND Family Medicine
DX: N18.9 Chronic kidney disease, unspecified (principal)
CPT/HCPCS: 76770

== ENCOUNTER → 2022-03-26 | Outpatient (CLI) | payer MEDICARE ==
--- NOTE | 2022-03-29 10:27 | BD ---
EXAMINATION TYPE: Axial Bone Density DATE OF EXAM: 03/26/2022 COMPARISON: 10/18/2018 CLINICAL HISTORY: 89 years old Female. ICD-10 CODE: Z78.0 ASYMPTOMATIC MENOPAUSAL STATE Height: 60 Weight: 107 FRAX RISK QUESTIONS: Alcohol (3 or more units per day): NO Family History (Parent hip fracture): NO Glucocorticoids (More than 3mos): NO (Ex: prednisone, prednisolone, methylprednisolone, dexamethasone, and hydrocortisone). History of Fracture in Adulthood: NO Secondary Osteoporosis: 1. Type 1 Diabetes: NO 2. Hyperthyroidism: NO 3. Menopause before 45: NO 4. Malnutrition: NO 5. Chronic liver disease: NO Rheumatoid Arthritis: NO Current Tobacco Use: NO RISK FACTORS HISTORY OF: Family History of Osteoporosis: YES Active: YES Diet low in dairy products/other sources of calcium: NO Postmenopausal woman: YES Take estrogen and/or progesterone medications: NO Lost more than 2 inches in height since high school: YES MEDICATIONS: Additional Medications: YES VIT D,HEART MEDS,HBP, GERD EXAM MEASUREMENTS: Bone mineral densitometry was performed using the [employer] System. Bone mineral density as measured about the Lumbar spine is: ----- L1-L4(G/cm2): 0.952 T Score Values are as follows: ----- L1: -2.1 ----- L2: -2.1 ----- L3: -1.9 ----- L4: -1.7 ----- L1-L4: -1.9 Bone mineral density has: Decreased 16.1% since study of: 10/18/2018 Bone mineral density about the R hip (g/cm2): 0.727 Bone mineral density about the L hip (g/cm2): 0.740 T Score values are as follows: -----R Neck:-2.2 -----L Neck: -2.1 -----R Total: -2.2 -----L Total: -2.1 Bone mineral density has: Decreased 12.1% since study of: 10/18/2018 FRAX%s: The graph provided illustrates a 12.1% chance for a major osteoporotic fx and a 4.4% chance f or the hips probability for fx in 10 years time. IMPRESSION: Osteopenia (T Score between -2.5 and -1). There is slightly increased risk of fracture and the patient may be considered for treatment. Re-Screen 2-5 years. NOTE: T-SCORE=SD OF THE YOUNG ADULT MEAN.
== END | disposition home or self-care (01) ==
LOC: RADBDWWP 16:27
PROVIDERS: ATTEND Family Medicine
DX: M85.89 Other specified disorders of bone density and structure, multiple sites (principal); Z78.0 Asymptomatic menopausal state
CPT/HCPCS: 77080

== ENCOUNTER 2022-05-27 22:01 | Inpatient (IN) | payer MEDICARE ==
--- NOTE | 2022-05-27 23:13 | XR ---
EXAMINATION TYPE: XR chest 2V DATE OF EXAM: 05/27/2022 COMPARISON: 08/20/2016 HISTORY: Short of breath TECHNIQUE: 2 views FINDINGS: Heart is enlarged. There is slight blunting right costophrenic angle. There is mild congest ion. Thoracic aorta is atheromatous. There is osteopenia with mild thoracic kyphosis. IMPRESSION: There is evidence for mild congestive heart failure and small right pleural effusion whic h appears new compared to old exam.
[2022-05-27 23:16] LABS: Basophils % (A) 0 %; Eosinophils # (A) 0.2 k/uL (0-0.7); Eosinophils % (A) 2 %; HGB 11.2 gm/dL (11.4-16.0); Lymphocytes # (A) 0.7 k/uL (1.0-4.8); Lymphocytes % (A) 7 %; MCH 31.3 pg (25.0-35.0); MCHC 33.8 g/dL (31.0-37.0); MCV 92.7 fL (80.0-100.0); Mean Platelet Volume 7.6; Monocytes # (A) 0.6 k/uL (0-1.0); Monocytes % (A) 6 %; Neutrophils # (A) 8.6 k/uL (1.3-7.7); Neutrophils % (A) 83 %; Platelet Count 358 k/uL (150-450); RBC 3.56 m/uL (3.80-5.40); RDW 12.6 % (11.5-15.5); WBC 10.4 k/uL (3.8-10.6)
[2022-05-27 23:34] LABS: Albumin 3.4 g/dL (3.5-5.0); Calcium 8.5 mg/dL (8.4-10.2); Potassium 4.5 mmol/L (3.5-5.1); Total Bilirubin 0.9 mg/dL (0.2-1.3); Total Protein 6.2 g/dL (6.3-8.2)
[2022-05-27 23:41] LABS: INR 1.2 (<1.2); Partial Thromboplastin Time 30.1 sec (22.0-30.0); Prothrombin Time 11.9 sec (9.0-12.0)
[2022-05-28] MEDS ORDERED: FAMOTIDINE 20 MG/2 ML VIAL IV STA (05:08)
[2022-05-28] MEDS ORDERED: FUROSEMIDE 10 MG/ML 4 ML VIAL IV STA (05:08)
--- NOTE | 2022-05-28 05:11 | ED ---
General Adult HPI - General Chief complaint: Shortness of Breath Stated complaint: CINTIA, CHF Time Seen by Provider: 05/28/22 04:35 Source: patient, family Mode of arrival: wheelchair Limitations: no limitations - History of Present Illness Initial comments: This is an 89-year-old female with a past medical history including atrial fibrillation on Eliquis, hypertension and congestive heart failure presents emergency Department with her daughter for increasing shortness of breath. The patient did state that the shortness breath has been present over the last 1 month but has been worsening over the last several days. The patient did state that she had orthopnea like symptoms and could not lay flat. The patient stated that she has had increasing shortness of breath with exertion and was mildly short of breath with speaking at rest. The patient stated that she was only taking her Lasix when she noted increased swelling in her legs and only started once again for the last 2 days. The patient denied any acute chest pain or other pain. The patient denied any fevers, chills as well as any nausea and vomiting. - Related Data Home Medications Medication Instructions Recorded Confirmed Aspirin EC [Ecotrin Low Dose] 162 mg PO QAM 04/17/14 08/20/16 Simvastatin [Zocor] 40 mg PO HS 04/17/14 08/20/16 Multivitamins, Thera [Multivitamin 1 tab PO Q48H 06/06/16 08/20/16 (formulary)] ALPRAZolam [Xanax] 0.125 mg PO TID PRN 06/11/16 08/20/16 Calcium Carbonate/Vitamin D3 1 tab PO BID 06/12/16 08/20/16 [Calcium 600-Vit D3 5 Mcg (200 Iu)] Losartan Potassium [Cozaar] 100 mg PO HS 08/20/16 08/20/16 Ranitidine HCl [Zantac] 150 mg PO BID 08/20/16 08/20/16 atenoloL [Tenormin] 25 mg PO HS 08/20/16 08/20/16 Previous Rx's Medication Instructions Recorded amLODIPine BESYLATE [Norvasc] 2.5 mg PO BID #1 tab 06/16/16 Allergies Allergy/AdvReac Type Severity Reaction Status Date / Time metaxalone [From Skelaxin] Allergy Rash/Hives Verified 08/21/16 13:07 verapamil HCl [From Calan] Allergy Unknown Verified 08/21/16 13:07 isosorbide [From Imdur] AdvReac Severe Unknown Verified 08/23/16 08:53 naproxen AdvReac Severe Heartburn Verified 08/21/16 13:07 acetaminophen AdvReac Abdominal Verified 08/21/16 13:07 [From Tylenol-Codeine #3] Pain codeine phosphate AdvReac Abdominal Verified 08/21/16 13:07 [From Tylenol-Codeine #3] Pain quinapril HCl [From Accupril] AdvReac Rapid Verified 08/21/16 13:07 Heart Rate Review of Systems ROS Statement: Those systems with pertinent positive or pertinent negative responses have been documented in the HPI. ROS Other: All systems not noted in ROS Statement are negative. Past Medical History Past Medical History: Coronary Artery Disease (CAD), Heart Failure, GERD/Reflux, Hypertension Additional Past Medical History / Comment(s): hiatal hernia, blood in stool History of Any Multi-Drug Resistant Organisms: None Reported Past Surgical History: Cholecystectomy, Heart Catheterization, Heart Catheterization With Stent Additional Past Surgical History / Comment(s): stent to the Circumflex Past Anesthesia/Blood Transfusion Reactions: No Reported Reaction Date of Last Stent Placement:: 05/11/10 Past Psychological History: Anxiety Past Alcohol Use History: None Reported Past Drug Use History: None Reported - Past Family History Brother(s) Family Medical History: Cancer Additional Family Medical History / Comment(s): Throat cancer Father Family Medical History: Cancer Additional Family Medical History / Comment(s): anemia Sister(s) Family Medical History: Cancer Additional Family Medical History / Comment(s): breast cancer General Exam Limitations: no limitations General appearance: alert, in no apparent distress Head exam: Present: atraumatic, normocephalic, normal inspection Eye exam: Present: normal appearance, PERRL Pupils: Present: normal accommodation ENT exam: Present: normal exam, normal oropharynx, mucous membranes moist Neck exam: Present: normal inspection, full ROM Respiratory exam: Present: normal lung sounds bilaterally Cardiovascular Exam: Present: regular rate, normal rhythm, normal heart sounds GI/Abdominal exam: Present: soft, normal bowel sounds Extremities exam: Present: normal inspection, full ROM, normal capillary refill Back exam: Present: normal inspection, full ROM Neurological exam: Present: alert, oriented X3, CN II-XII intact Psychiatric exam: Present: normal affect, normal mood Skin exam: Present: warm, dry Course Vital Signs 05/27/22 22:29 Temperature 98 F Pulse Rate 81 Respiratory 24 Rate Blood Pressure 161/62 O2 Sat by Pulse 93 L Oximetry EKG Findings - EKG Comments: EKG Findings:: An EKG was obtained and was interpreted by myself. EKG showed a rate of 70, QRS duration of 145 and QTC of 457. This EKG showed atrial fibrillation without any ST segment elevations or depressions noted. This is consistent with her previous history of atrial fibrillation. Medical Decision Making - Medical Decision Making Was pt. sent in by a medical professional or institution (, PA, BLUEPRINT CLERK, urgent care, hospital, or assisted...) When possible be specific @ -No Did you speak to anyone other than the patient for history (EMS, parent, family, police, friend...)? What history was obtained from this source @ -Yes, patient's daughter Did you review nursing and triage notes (agree or disagree)? Why? @ -I reviewed and agree with nursing and triage notes Were old charts reviewed (outside hosp., previous admission, EMS record, old EKG, old radiological studies, urgent care reports/EKG's, assisted records)? Report findings @ -No old charts were reviewed Differential Diagnosis (chest pain, altered mental status, abdominal pain women, abdominal pain men, vaginal bleeding, weakness, fever, dyspnea, syncope, headache, dizziness, GI bleed, back pain, seizure, CVA, palpatations, mental health)? @ -Congestive heart failure exacerbation, ACS, pneumonia EKG interpreted by me (3pts min.). @ -As above X-rays interpreted by me (1pt min.). @ -Chest x-ray was obtained and was interpreted by myself. Chest x-ray showed evidence for mild congestive heart failure and small right pleural effusion which is new compared to the old exam. CT interpreted by me (1pt min.). @ -None done U/S interpreted by me (1pt. min.). @ -None done What testing was considered but not performed or refused? (CT, X-rays, U/S, labs)? Why? @ -None What meds were considered but not given or refused? Why? @ -None Did you discuss the management of the patient with other professionals (professionals i.e. , PA, BLUEPRINT CLERK, lab, RT, psych nurse, long term care social worker, manager licensing, teacher, air control/anti air warfare officer, leather case finisher)? Give summary @ -Yes, admitting physician Was smoking cessation discussed for >3mins.? @ -No Was critical care preformed (if so, how long)? @ -No Were there social determinants of health that impacted care today? How? (Homelessness, low income, unemployed, alcoholism, drug addiction, t ransportation, low edu. Level, literacy, decrease access to med. care, assisted, rehab)? @ -No Was there de-escalation of care discussed even if they declined (Discuss DNR or withdrawal of care, Hospice)? DNR status @ -No What co-morbidities impacted this encounter? (DM, HTN, Smoking, COPD, CAD, Cancer, CVA, ARF, Chemo, Hep., AIDS, mental health diagnosis, sleep apnea, morbid obesity)? @ -Atrial fibrillation, hypertension, congestive heart failure Was patient admitted / discharged? Hospital course, mention meds given and route, prescriptions, significant lab abnormalities, going to OR and other pertinent info. @ -The patient was seen and evaluated in the emergency department. Physical exam, the patient was resting in bed without any acute distress. Vital signs admission were stable and within normal limits. The patient did have shortness of breath on evaluation and chest x-ray showed CHF and a CHF exacerbation with a new pleural effusion. Due to the patient's CHF exacerbation and shortness of breath on exam, the patient did require observation and evaluation by cardiology. The patient was given a dose of Lasix in the emergency department and was agreeable to this plan. The patient was accepted for observation by Dr. Kazt at 0538. The patient was placed observation in stable condition. Undiagnosed new problem with uncertain prognosis? @ -No Drug Therapy requiring intensive monitoring for toxicity (Heparin, Nitro, Insulin, Cardizem)? @ -No Were any procedures done? @ -No Diagnosis/symptom? @ -CHF exacerbation Acute, or Chronic, or Acute on Chronic? @ -Acute on chronic Uncomplicated (without systemic symptoms) or Complicated (systemic symptoms)? @ -Complicated Side effects of treatment? @ -No Exacerbation, Progression, or Severe Exacerbation? @ -Exacerbation Poses a threat to life or bodily function? How? (Chest pain, USA, NC, pneumonia, PE, COPD, DKA, ARF, appy, cholecystitis, CVA, Diverticulitis, Homicidal, S uicidal, threat to staff... and all critical care pts) @ -No - Lab Data Result diagrams: 05/27/22 22:39 05/27/22 22:39 Lab Results 05/27/22 05/27/22 05/27/22 Range/Units 22:39 22:39 22:39 WBC 10.4 (3.8-10.6) k/uL RBC 3.56 L (3.80-5.40) m/uL Hgb 11.2 L (11.4-16.0) gm/dL Hct 33.0 L (34.0-46.0) % MCV 92.7 (80.0-100.0) fL MCH 31.3 (25.0-35.0) pg MCHC 33.8 (31.0-37.0) g/dL RDW 12.6 (11.5-15.5) % Plt Count 358 (150-450) k/uL MPV 7.6 Neutrophils % 83 % Lymphocytes % 7 % Monocytes % 6 % Eosinophils % 2 % Basophils % 0 % Neutrophils # 8.6 H (1.3-7.7) k/uL Lymphocytes # 0.7 L (1.0-4.8) k/uL Monocytes # 0.6 (0-1.0) k/uL Eosinophils # 0.2 (0-0.7) k/uL Basophils # 0.0 (0-0.2) k/uL PT 11.9 (9.0-12.0) sec INR 1.2 H (<1.2) APTT 30.1 H (22.0-30.0) sec Sodium 131 L (137-145) mmol/L Potassium 4.5 (3.5-5.1) mmol/L Chloride 97 L (98-107) mmol/L Carbon Dioxide 25 (22-30) mmol/L Anion Gap 9 mmol/L BUN 22 H (7-17) mg/dL Creatinine 1.27 H (0.52-1.04) mg/dL Est GFR (CKD-EPI)AfAm 43 (>60 ml/min/1.73 sqM) Est GFR (CKD-EPI)NonAf 38 (>60 ml/min/1.73 sqM) Glucose 122 H (74-99) mg/dL Calcium 8.5 (8.4-10.2) mg/dL Total Bilirubin 0.9 (0.2-1.3) mg/dL AST 46 H (14-36) U/L ALT 49 H (4-34) U/L Alkaline Phosphatase 101 (38-126) U/L Troponin I (0.000-0.034) ng/mL Total Protein 6.2 L (6.3-8.2) g/dL Albumin 3.4 L (3.5-5.0) g/dL 05/27/22 Range/Units 22:39 WBC (3.8-10.6) k/uL RBC (3.80-5.40) m/uL Hgb (11.4-16.0) gm/dL Hct (34.0-46.0) % MCV (80.0-100.0) fL MCH (25.0-35.0) pg MCHC (31.0-37.0) g/dL RDW (11.5-15.5) % Plt Count (150-450) k/uL MPV Neutrophils % % Lymphocytes % % Monocytes % % Eosinophils % % Basophils % % Neutrophils # (1.3-7.7) k/uL Lymphocytes # (1.0-4.8) k/uL Monocytes # (0-1.0) k/uL Eosinophils # (0-0.7) k/uL Basophils # (0-0.2) k/uL PT (9.0-12.0) sec INR (<1.2) APTT (22.0-30.0) sec Sodium (137-145) mmol/L Potassium (3.5-5.1) mmol/L Chloride (98-107) mmol/L Carbon Dioxide (22-30) mmol/L Anion Gap mmol/L BUN (7-17) mg/dL Creatinine (0.52-1.04) mg/dL Est GFR (CKD-EPI)AfAm (>60 ml/min/1.73 sqM) Est GFR (CKD-EPI)NonAf (>60 ml/min/1.73 sqM) Glucose (74-99) mg/dL Calcium (8.4-10.2) mg/dL Total Bilirubin (0.2-1.3) mg/dL AST (14-36) U/L ALT (4-34) U/L Alkaline Phosphatase (38-126) U/L Troponin I <0.012 (0.000-0.034) ng/mL Total Protein (6.3-8.2) g/dL Albumin (3.5-5.0) g/dL Disposition Clinical Impression: Congestive heart failure, Orthopnea Disposition: ADMITTED IP TO THIS [facility] Condition: Stable Is patient prescribed a controlled substance at d/c from ED?: No Referrals: Mindy Gallardo DO [Primary Care Provider] - 1-2 days Time of Disposition: 05:30 Decision to Admit Reason: Admit from EC Decision Date: 05/28/22 Decision Time: 05:30
[2022-05-28] MEDS ORDERED: NALOXONE 0.4 MG/ML 1 ML VIAL IV PRN (06:05)
[2022-05-28] MEDS: ALPRAZolam 0.25 MG TAB PO PRN ×2 (07:06→20:37)
[2022-05-28] MEDS ORDERED: amLODIPine 5 MG TAB PO SCH (09:00)
[2022-05-28] MEDS: POTASSIUM CHLORIDE ER 10 MEQ TAB.ER.PRT PO SCH (09:30)
[2022-05-28] MEDS: FUROSEMIDE 10 MG/ML 4 ML VIAL IV SCH ×2 (09:30→20:37)
[2022-05-28] MEDS: amLODIPine 10 MG TAB PO SCH (09:30)
[2022-05-28] MEDS: APIXABAN 2.5 MG TABLET PO SCH ×2 (09:30→20:37)
--- NOTE | 2022-05-28 12:24 | P.CRDCN ---
History of Present Illness History of present illness: HISTORY OF PRESENT ILLNESS: This is a 89-year-old female with a past medical history significant for coronary artery disease with previous stenting of the RCA, valvular heart disease, permanent atrial fibrillation, hypertension, hyperlipidemia, and congestive heart failure. Patient follows in the office with Dr. Hugo. We have been asked to see the patient in consultation for CHF. Patient examined at the bedside. Patient's daughter is at the bedside. Patient states she presented to the hospital for chief complaint of shortness of breath. She states that about a week ago she started having a cough and not feeling well. She reports having increased lower extremity edema at home but states it has resolved since receiving diuretics in the hospital. She states that she has been unable to lay flat due to her shortness of breath. She denies chest pain or pressure. The patient's blood pressure is elevated at the time of examination with a systolic ranging between 160 and 170. The patient states she checks her blood pressure at home and it has been elevated with a systolic usually 150 or greater. * EKG reveals atrial fibrillation with controlled ventricular rate * Chest xray there is evidence for mild congestive heart failure and small right pleural effusion which appears new compared to old exam * Laboratory data: WBC 10.4. Hemoglobin 11.2. Platelet count 358. Sodium 131. Potassium 4.5. BUN 22. Creatinine 1.27. Troponin negative 1. ProBNP 5120. * Current home cardiac medications include Norvasc 5 mg daily, losartan 100 mg at night, simvastatin 40 mg at night, atenolol 25 mg at night, Lasix 20 mg daily, and Eliquis 2.5 mg twice a day * Most recent echocardiogram obtained in July 2021 revealing ejection fraction 55-60%, moderate aortic regurgitation, moderate mitral regurgitation, severe tricuspid regurgitation, and severe pulmonary hypertension * Patient underwent Lexiscan stress test in July 2021 which was negative for ischemia REVIEW OF SYSTEMS: At the time of my exam: CONSTITUTIONAL: Denies fever or chills. HEENT: Denies blurred vision, vision changes, or eye pain. Denies hemoptysis CARDIOVASCULAR: Denies chest pain. Denies orthopnea. Denies PND. Denies palpitations RESPIRATORY: Denies shortness of breath. GASTROINTESTINAL: Denies abdominal pain. Denies nausea or vomiting. HEMATOLOGIC: Denies bleeding disorders. GENITOURINARY: Denies any blood in urine. SKIN: Denies pruitis. Denies rash. PHYSICAL EXAM: VITAL SIGNS: Reviewed. GENERAL: Well-developed in no acute distress. HEENT: Head is normocephalic. Pupils are equal, round. Sclerae anicteric. Mucous membranes of the mouth are moist. Neck supple. No JVD or thyromegaly LUNGS: Respirations even and unlabored. Lungs with bilateral crackles. HEART: Irregular rate and rhythm. S1 and S2 heard. ABDOMEN: Soft. Nondistended. Nontender. EXTREMITIES: Normal range of motion. No clubbing or cyanosis. Peripheral pulses intact. No lower extremity edema NEUROLOGIC: Awake and alert. Oriented x 3. ASSESSMENT: Shortness of breath Acute on chronic heart failure with preserved ejection fraction Hypertension, uncontrolled Permanent atrial fibrillation Hyperlipidemia Coronary artery disease with periods PCI to the RCA Valvular heart disease PLAN: Obtain 2-D echo to assess cardiac structure and function Resume home cardiac medications Increase Norvasc to 10 mg daily for optimal blood pressure control Begin Lasix 40 mg IV every 12 hours Daily weights, accurate I&O, and monitoring of kidney function Further recommendations pending patient course Nurse practitioner note has been reviewed by physician. Signing provider agrees with the documented findings, assessment, and plan of care. Past Medical History Past Medical History: Coronary Artery Disease (CAD), Heart Failure, GERD/Reflux, Hypertension Additional Past Medical History / Comment(s): hiatal hernia, blood in stool History of Any Multi-Drug Resistant Organisms: None Reported Past Surgical History: Cholecystectomy, Heart Catheterization, Heart Catheteri zation With Stent Additional Past Surgical History / Comment(s): stent to the Circumflex Past Anesthesia/Blood Transfusion Reactions: No Reported Reaction Date of Last Stent Placement:: 05/11/10 Past Psychological History: Anxiety Past Alcohol Use History: None Reported Past Drug Use History: None Reported - Past Family History Brother(s) Family Medical History: Cancer Additional Family Medical History / Comment(s): Throat cancer Father Family Medical History: Cancer Additional Family Medical History / Comment(s): anemia Sister(s) Family Medical History: Cancer Additional Family Medical History / Comment(s): breast cancer Medications and Allergies Home Medications Medication Instructions Recorded Confirmed Type Simvastatin [Zocor] 40 mg PO PC-SUPPER 04/17/14 05/28/22 History ALPRAZolam [Xanax] 0.25 mg PO BID PRN 06/11/16 05/28/22 History Calcium Carbonate/Vitamin D3 1 tab PO DAILY 06/12/16 05/28/22 History [Calcium 600-Vit D3 5 Mcg (200 Iu)] Losartan Potassium [Cozaar] 100 mg PO PC-SUPPER 08/20/16 05/28/22 History atenoloL [Tenormin] 25 mg PO PC-SUPPER 08/20/16 05/28/22 History Albuterol Nebulized [Ventolin 2.5 mg INHALATION RT-QID 05/28/22 05/28/22 History Nebulized] Apixaban [Eliquis] 2.5 mg PO BID 05/28/22 05/28/22 History Fluticasone Nasal [place] [Flonase 2 spray EA NOSTRIL HS 05/28/22 05/28/22 History Nasal [place]] Furosemide [Lasix] 20 mg PO DAILY 05/28/22 05/28/22 History Omeprazole [PriLOSEC] 40 mg PO DAILY 05/28/22 05/28/22 History Potassium Chloride ER [K-Dur 10] 10 meq PO DAILY 05/28/22 05/28/22 History amLODIPine [Norvasc] 5 mg PO DAILY 05/28/22 05/28/22 History Allergies Allergy/AdvReac Type Severity Reaction Status Date / Time metaxalone [From Skelaxin] Allergy Rash/Hives Verified 05/28/22 07:49 verapamil HCl [From Calan] Allergy Unknown Verified 05/28/22 07:49 isosorbide [From Imdur] AdvReac Severe Unknown Verified 05/28/22 07:49 naproxen AdvReac Severe Heartburn Verified 05/28/22 07:49 acetaminophen AdvReac Abdominal Verified 05/28/22 07:49 [From Tylenol-Codeine #3] Pain codeine phosphate AdvReac Abdominal Verified 05/28/22 07:49 [From Tylenol-Codeine #3] Pain quinapril HCl [From Accupril] AdvReac Rapid Verified 05/28/22 07:49 Heart Rate Physical Exam Vitals: Vital Signs Temp Pulse Resp BP Pulse Ox 05/28/22 06:45 78 22 176/81 99 05/28/22 06:30 73 22 176/81 89 L 05/28/22 06:00 71 20 179/93 92 L 05/28/22 05:54 74 20 124/72 93 L 05/27/22 22:29 98 F 81 24 161/62 93 L Intake and Output 05/27/22 05/28/22 05/28/22 22:59 06:59 14:59 Other: Weight 51.71 kg Results 05/27/22 22:39 05/27/22 22:39 Cardiac Enzymes 05/27/22 05/27/22 Range/Units 22:39 22:39 AST 46 H (14-36) U/L Troponin I <0.012 (0.000-0.034) ng/mL Coagulation 05/27/22 Range/Units 22:39 PT 11.9 (9.0-12.0) sec APTT 30.1 H (22.0-30.0) sec CBC 05/27/22 Range/Units 22:39 WBC 10.4 (3.8-10.6) k/uL RBC 3.56 L (3.80-5.40) m/uL Hgb 11.2 L (11.4-16.0) gm/dL Hct 33.0 L (34.0-46.0) % Plt Count 358 (150-450) k/uL Comprehensive Metabolic Panel 05/27/22 Range/Units 22:39 Sodium 131 L (137-145) mmol/L Potassium 4.5 (3.5-5.1) mmol/L Chloride 97 L (98-107) mmol/L Carbon Dioxide 25 (22-30) mmol/L BUN 22 H (7-17) mg/dL Creatinine 1.27 H (0.52-1.04) mg/dL Glucose 122 H (74-99) mg/dL Calcium 8.5 (8.4-10.2) mg/dL AST 46 H (14-36) U/L ALT 49 H (4-34) U/L Alkaline Phosphatase 101 (38-126) U/L Total Protein 6.2 L (6.3-8.2) g/dL Albumin 3.4 L (3.5-5.0) g/dL Current Medications Generic Name Dose Route Start Last Admin Trade Name Freq PRN Reason Stop Dose Admin Alprazolam 0.125 mg 05/28/22 06:35 05/28/22 07:06 Alprazolam 0.25 Mg Tab PO 0.125 mg TID PRN Administration Anxiety Naloxone HCl 0.2 mg 05/28/22 06:05 Naloxone 0.4 Mg/Ml 1 Ml Vial IV Q2M PRN Opioid Reversal Intake and Output 05/27/22 05/28/22 05/28/22 22:59 06:59 14:59 Other: Weight 51.71 kg 05/27/22 22:39 05/27/22 22:39
--- NOTE | 2022-05-28 17:59 | CA ---
Transthoracic Echo Report Name: Palmira Wilson Age: 89 Gender: F : 1930 Exam Date: 05/28/2022 17:10 Exam Location: [place] [facility] Ht (in): 60 Wt (lb): 114 Ordering Physician: An Garcia Attending/Referring Phys: [id number], Jose Freezer Operator Bea Lin RDCS Procedure CPT: Indications: LV function Cardiac Hx: Technical Quality: Fair Contrast 1: Total Dose (mL): Contrast 2: Total Dose (mL): MEASUREMENTS (Male / Female) Normal Values 2D ECHO LV Diastolic Diameter PLAX 3.0 cm 4.2 - 5.9 / 3.9 - 5.3 cm LV Systolic Diameter PLAX 1.6 cm IVS Diastolic Thickness 1.3 cm 0.6 - 1.0 / 0.6 - 0.9 cm LVPW Diastolic Thickness 1.8 cm 0.6 - 1.0 / 0.6 - 0.9 cm LV Relative Wall Thickness 1.0 RV Internal Dim ED PLAX 3.4 cm LA Volume 88.5 cm??? 18 - 58 / 22 - 52 cm??? M-MODE Aortic Root Diameter MM 3.2 cm LA Systolic Diameter MM 4.8 cm LA Ao Ratio MM 1.5 AV Cusp Separation MM 1.8 cm DOPPLER AV Peak Velocity 182.6 cm/s AV Peak Gradient 13.3 mmHg AV Mean Velocity 123.2 cm/s AV Mean Gradient 6.7 mmHg AV Velocity Time Integral 36.6 cm AI Peak Velocity 453.5 cm/s AI Peak Gradient 82.3 mmHg AI Pressure Half Time 701.3 ms LVOT Peak Velocity 93.6 cm/s LVOT Peak Gradient 3.5 mmHg MV E' Velocity 5.8 cm/s TR Peak Velocity 370.2 cm/s TR Peak Gradient 54.8 mmHg Right Atrial Pressure 20.0 mmHg Pulmonary Artery Systolic Pressu 74.8 mmHg Right Ventricular Systolic Press 74.8 mmHg FINDINGS Left Ventricle Moderately increased septal wall thickness. Severely increased posterior wall thickness. No obvious regional wall motion abnormalities. Left ventricular ejection fraction is estimated at 55-60 %. Right Ventricle Mild right ventricular dilatation. Severe pulmonary hypertension. Right ventricular systolic pressure estimated at 75 mm hg. Right Atrium Moderate right atrial dilatation. Left Atrium Severely increased left atrial volume. Mildly increased left atrial area. Mitral Valve Structurally normal mitral valve. Mild mitral annular calcification. Moderate mitral regurgitation. Aortic Valve No aortic stenosis. Mild aortic regurgitation. Tricuspid Valve Structurally normal tricuspid valve. Moderate tricuspid regurgitation. Pulmonic Valve Trace pulmonic regurgitation. Pericardium No pericardial effusion. Aorta Normal size aortic root and proximal ascending aorta. CONCLUSIONS Moderately increased left ventricular wall thickness Left ventricular ejection fraction 55-60% RVSP 75 Moderate to severely dilated left and right atria Moderate mitral regurgitation Mild aortic regurgitation Moderate tricuspid regurgitation Previewed by: Dr. Tom Rust DO (Electronically Signed) Final Date: 28 May 2022 17:58
[2022-05-28] MEDS: LOSARTAN 50 MG TAB PO SCH (18:06)
[2022-05-28] MEDS: atenoloL 25 MG TAB PO SCH (18:06)
[2022-05-28] MEDS: ATORVASTATIN 20 MG TAB PO SCH (18:06)
--- NOTE | 2022-05-28 19:44 | P.HPIM ---
History of Present Illness H&P Date: 05/28/22 89-year-old female with a past medical history significant for coronary artery disease with previous stenting of the RCA, valvular heart disease, permanent atrial fibrillation, hypertension, hyperlipidemia, and congestive heart failure. Patient follows in the office with Dr. Hugo. We have been asked to see the patient in consultation for CHF. Patient examined at the bedside. Patient's daughter is at the bedside. Patient states she presented to the hospital for chief complaint of shortness of breath. She states that about a week ago she started having a cough and not feeling well. She reports having increased lower extremity edema at home but states it has resolved since receiving diuretics in the hospital. She states that she has been unable to lay flat due to her shortness of breath. She denies chest pain or pressure. The patient's blood pressure is elevated at the time of examination with a systolic ranging between 160 and 170. The patient states she checks her blood pressure at home and it has been elevated with a systolic usually 150 or greater. EKG reveals atrial fibrillation with controlled ventricular rate Chest xray there is evidence for mild congestive heart failure and small right pleural effusion which appears new compared to old exam Laboratory data: WBC 10.4. Hemoglobin 11.2. Platelet count 358. Sodium 131. Potassium 4.5. BUN 22. Creatinine 1.27. Troponin negative 1. ProBNP 5120. Review of Systems REVIEW OF SYSTEMS: CONSTITUTIONAL: No fever, no malaise, no fatigue. HEENT: No recent visual problems or hearing problems. Denied any sore throat. CARDIOVASCULAR: No chest pain, orthopnea, PND, no palpitations, no syncope. PULMONARY: No shortness of breath, no cough, no hemoptysis. GASTROINTESTINAL: No diarrhea, no nausea, no vomiting, no abdominal pain. NEUROLOGICAL: No headaches, no weakness, no numbness. HEMATOLOGICAL: Denies any bleeding or petechiae. GENITOURINARY: Denies any burning micturition, frequency, or urgency. MUSCULOSKELETAL/RHEUMATOLOGICAL: Denies any joint pain, swelling, or any muscle pain. ENDOCRINE: Denies any polyuria or polydipsia. The rest of the 14-point review of systems is negative. Past Medical History Past Medical History: Coronary Artery Disease (CAD), Heart Failure, GERD/Reflux, Hypertension Additional Past Medical History / Comment(s): hiatal hernia, blood in stool History of Any Multi-Drug Resistant Organisms: None Reported Past Surgical History: Cholecystectomy, Heart Catheterization, Heart Catheterization With Stent Additional Past Surgical History / Comment(s): stent to the Circumflex Past Anesthesia/Blood Transfusion Reactions: No Reported Reaction Date of Last Stent Placement:: 05/11/10 Past Psychological History: Anxiety Past Alcohol Use History: None Reported Past Drug Use History: None Reported - Past Family History Brother(s) Family Medical History: Cancer Additional Family Medical History / Comment(s): Throat cancer Father Family Medical History: Cancer Additional Family Medical History / Comment(s): anemia Sister(s) Family Medical History: Cancer Additional Family Medical History / Comment(s): breast cancer Medications and Allergies Home Medications Medication Instructions Recorded Confirmed Type Simvastatin [Zocor] 40 mg PO PC-SUPPER 04/17/14 05/28/22 History ALPRAZolam [Xanax] 0.25 mg PO BID PRN 06/11/16 05/28/22 History Calcium Carbonate/Vitamin D3 1 tab PO DAILY 06/12/16 05/28/22 History [Calcium 600-Vit D3 5 Mcg (200 Iu)] Losartan Potassium [Cozaar] 100 mg PO PC-SUPPER 08/20/16 05/28/22 History atenoloL [Tenormin] 25 mg PO PC-SUPPER 08/20/16 05/28/22 History Albuterol Nebulized [Ventolin 2.5 mg INHALATION RT-QID 05/28/22 05/28/22 History Nebulized] Apixaban [Eliquis] 2.5 mg PO BID 05/28/22 05/28/22 History Fluticasone Nasal [place] [Flonase 2 spray EA NOSTRIL HS 05/28/22 05/28/22 History Nasal [place]] Furosemide [Lasix] 20 mg PO DAILY 05/28/22 05/28/22 History Omeprazole [PriLOSEC] 40 mg PO DAILY 05/28/22 05/28/22 History Potassium Chloride ER [K-Dur 10] 10 meq PO DAILY 05/28/22 05/28/22 History amLODIPine [Norvasc] 5 mg PO DAILY 05/28/22 05/28/22 History Allergies Allergy/AdvReac Type Severity Reaction Status Date / Time metaxalone [From Skelaxin] Allergy Rash/Hives Verified 05/28/22 07:49 verapamil HCl [From Calan] Allergy Unknown Verified 05/28/22 07:49 isosorbide [From Imdur] AdvReac Severe Unknown Verified 05/28/22 07:49 naproxen AdvReac Severe Heartburn Verified 05/28/22 07:49 acetaminophen AdvReac Abdominal Verified 05/28/22 07:49 [From Tylenol-Codeine #3] Pain codeine phosphate AdvReac Abdominal Verified 05/28/22 07:49 [From Tylenol-Codeine #3] Pain quinapril HCl [From Accupril] AdvReac Rapid Verified 05/28/22 07:49 Heart Rate Physical Exam Vitals: Vital Signs Temp Pulse Pulse Resp BP BP Pulse Ox 05/28/22 11:34 70 18 05/28/22 09:19 97.1 F L 70 18 166/72 96 05/28/22 06:45 78 22 176/81 99 05/28/22 06:30 73 22 176/81 89 L 05/28/22 06:00 71 20 179/93 92 L 05/28/22 05:54 74 20 124/72 93 L 05/27/22 22:29 98 F 81 24 161/62 93 L Intake and Output 05/27/22 05/28/22 05/28/22 22:59 06:59 14:59 Output Total 2100 Balance -2100 Output: Urine 2100 Other: Voiding Method External Catheter Weight 51.71 kg PHYSICAL EXAMINATION: GENERAL: The patient is alert and oriented x3, not in any acute distress. Well developed, well nourished. HEENT: Pupils are round and equally reacting to light. EOMI. No scleral icterus. No conjunctival pallor. Normocephalic, atraumatic. No pharyngeal erythema. No thyromegaly. CARDIOVASCULAR: S1 and S2 present. No murmurs, rubs, or gallops. PULMONARY: Chest is clear to auscultation, no wheezing or crackles. ABDOMEN: Soft, nontender, nondistended, normoactive bowel sounds. No palpable organomegaly. MUSCULOSKELETAL: No joint swelling or deformity. EXTREMITIES: No cyanosis, clubbing, or pedal edema. NEUROLOGICAL: Gross neurological examination did not reveal any focal deficits. SKIN: No rashes. Results CBC & Chem 7: 05/27/22 22:39 05/27/22 22:39 Labs: Abnormal Lab Results - Last 24 Hours (Table) 05/27/22 05/27/22 05/27/22 Range/Units 22:39 22:39 22:39 RBC 3.56 L (3.80-5.40) m/uL Hgb 11.2 L (11.4-16.0) gm/dL Hct 33.0 L (34.0-46.0) % Neutrophils # 8.6 H (1.3-7.7) k/uL Lymphocytes # 0.7 L (1.0-4.8) k/uL INR 1.2 H (<1.2) APTT 30.1 H (22.0-30.0) sec Sodium 131 L (137-145) mmol/L Chloride 97 L (98-107) mmol/L BUN 22 H (7-17) mg/dL Creatinine 1.27 H (0.52-1.04) mg/dL Glucose 122 H (74-99) mg/dL AST 46 H (14-36) U/L ALT 49 H (4-34) U/L Total Protein 6.2 L (6.3-8.2) g/dL Albumin 3.4 L (3.5-5.0) g/dL Assessment and Plan Assessment: 1. Acute exacerbation chronic CHF with preserved EF - Patient has been placed on Lasix 40 mg IV every 12 hours; we will monitor strict LAHSAE's, daily weights, low salt and fluid restricted diet - 2-D echo to assess left ventricular function 2. Uncontrolled hypertension; we will continue with home dose of losartan 100 mg daily along with atenolol 25 mg daily, Norvasc 5 mg daily 3. Permanent atrial fibrillation; patient remains rate controlled on atenolol 25 mg daily and anticoagulated with L Contreras mg twice a day 4. Hyperlipidemia; Zocor 40 mg by mouth daily at bedtime 5. Coronary artery disease with PCI to RCA 6. Gastroesophageal reflux disease; Protonix 40 mg daily DVT prophylaxis; SCDs/systemic anticoagulation CODE STATUS; full code
[2022-05-28] MEDS ORDERED: ALPRAZolam 0.25 MG TAB PO PRN (20:38)
[2022-05-28] MEDS ORDERED: ACETAMINOPHEN TAB 325 MG TAB PO PRN (20:42)
[2022-05-28] MEDS: FLUTICASONE 50MCG/SPRAY NASAL 16GM EA NOSTRIL SCH (21:16)
[2022-05-29] MEDS: amLODIPine 10 MG TAB PO SCH (08:16)
[2022-05-29] MEDS: POTASSIUM CHLORIDE ER 10 MEQ TAB.ER.PRT PO SCH (08:16)
[2022-05-29] MEDS: CALCIUM CARB-VIT D 500 MG-5 MCG TAB PO SCH (08:16)
[2022-05-29] MEDS: PANTOPRAZOLE 40 MG TABLET PO SCH (08:16)
[2022-05-29] MEDS: APIXABAN 2.5 MG TABLET PO SCH ×2 (08:17→21:27)
[2022-05-29] MEDS: FUROSEMIDE 10 MG/ML 4 ML VIAL IV SCH (08:17)
[2022-05-29] MEDS: ALBUTEROL NEBULIZED 2.5 MG/3 ML INHALATION SCH ×4 (09:05→20:14)
[2022-05-29 09:08] LABS: Basophils # (A) 0.03 X 10*3/uL (0.00-0.10); Basophils % (A) 0.3 %; HCT 35.5 % (37.2-46.3); HGB 11.3 g/dL (12.0-15.0); Immature Grans, Automated 0.4 %; Lymphocytes # (A) 1.19 X 10*3/uL (0.90-5.00); Lymphocytes % (A) 11.8 %; MCH 30.1 pg (27.0-32.0); MCHC 31.8 g/dL (32.0-37.0); MCV 94.4 fL (80.0-97.0); Mean Platelet Volume 9.1 fL (9.5-12.2); Monocytes % (A) 10.9 %; NRBC Per 100 WBC 0 /100 WBCS (0.0-0.0); Neutrophils # (A) 7.34 X 10*3/uL (1.80-7.70); Neutrophils % (A) 72.6 %; Platelet Count 396 X 10*3/uL (140-440); RBC 3.76 X 10*6/uL (4.10-5.20); RDW 12.1 % (11.5-14.5)
[2022-05-29 09:59] LABS: African American GFR (CKD) 35.4 (60.0-200.0); Anion Gap 11.8 mmol/L (10.00-18.00); BUN/Creat Ratio 16.87 Ratio (12.00-20.00); Blood Urea Nitrogen 25.3 mg/dL (9.0-27.0); Calcium 8.8 mg/dL (8.7-10.3); Carbon Dioxide 29.2 mmol/L (20.0-27.5); Non-African American GFR(CKD) 30.6 (60.0-200.0); Potassium 3.9 mmol/L (3.5-5.5)
[2022-05-29] MEDS: FUROSEMIDE 40 MG TAB PO SCH (10:01)
[2022-05-29] MEDS: LORATADINE 10 MG TAB PO SCH (10:09)
--- NOTE | 2022-05-29 15:14 | P.PN ---
Subjective Progress Note Date: 05/29/22 This is Alcides Lakhani NP, I'm dictating on behalf of Dr. Lucero's H&P and A&P. Patient was interviewed and examined. Patient is a pleasant 89-year-old female who initially presented to the hospital with a CHF exacerbation. Patient reports that she is feeling much better today. Patient continues in atrial fibrillation but with a controlled rate. She has no edema. Review of her echocardiogram completed yesterday is similar to a previous echo she had approximately a year ago. She is denying chest pain, shortness of breath, and heart palpitations at this time. GENERAL: Well-appearing, well-nourished and in no acute distress. NECK: Supple without JVD or thyromegaly. LUNGS: Breath sounds clear to auscultation bilaterally. Respiration equal and unlabored. No wheezes, rales or rhonchi. HEART: Irregular rate and rhythm without murmurs, rubs or gallops. S1 and S2 heard. EXTREMITIES: Normal range of motion, no edema. No clubbing or cyanosis. Peripheral pulses intact and strong. VITALS: Temp 98.2, pulse 71, respirations 18, blood pressure 115/62, O2 saturation 100% on 2 L TELEMETRY: Atrial fibrillation with controlled ventricular response LABS: White count 10.1, hemoglobin 11.3, platelets 396, sodium 134, potassium 3.9, B1 25, creatinine 1.5, calcium 8.8, magnesium 1.8, BNP 5120, troponin less than 0.012 IMPRESSION: 1. Shortness of breath 2. Acute on chronic heart failure with preserved ejection fraction 3. Hypertension 4. Atrial fibrillation 5. Hyperlipidemia 6. Coronary artery disease 7. Valvular heart disease PLAN: Check TSH Discontinue IV Lasix, start oral Lasix 40 mg daily Patient may be discharged home from a cardiology standpoint. Follow-up with Dr. Suarez in one to 2 weeks. Thank you for allowing us to participate in the care of this patient. If furthe r recommendations are needed, please do not hesitate to reconsult us. Objective - Vital Signs Vital signs: Vital Signs Temp 98.2 F 05/29/22 14:03 Pulse 71 05/29/22 14:03 Resp 18 05/29/22 14:03 BP 115/62 05/29/22 14:03 Pulse Ox 100 05/29/22 14:03 FiO2 Intake & Output 05/28/22 05/29/22 05/29/22 18:59 06:59 18:59 Intake Total 118 Output Total 2100 500 Balance -2099 - Weight 51.71 kg 50 kg Intake: Oral 118 Output: Urine 2100 500 Other: Voiding Method External Catheter External Catheter External Catheter - Labs CBC & Chem 7: 05/29/22 05:09 05/29/22 05:09 Labs: Abnormal Lab Results - Last 24 Hours (Table) 05/29/22 05/29/22 Range/Units 05:09 05:09 WBC 10.10 H (4.50-10.00) X 10*3/uL RBC 3.76 L (4.10-5.20) X 10*6/uL Hgb 11.3 L (12.0-15.0) g/dL Hct 35.5 L (37.2-46.3) % MCHC 31.8 L (32.0-37.0) g/dL MPV 9.1 L (9.5-12.2) fL Monocytes # 1.10 H (0.20-1.00) X 10*3/uL Eosinophils # 0.40 H (0.04-0.35) X 10*3/uL Sodium 134 L (135-145) mmol/L Chloride 93 L (96-109) mmol/L Carbon Dioxide 29.2 H (20.0-27.5) mmol/L Est GFR (CKD-EPI)AfAm 35.4 L (60.0-200.0) Est GFR (CKD-EPI)NonAf 30.6 L (60.0-200.0)
--- NOTE | 2022-05-29 15:29 | P.PN ---
Subjective Progress Note Date: 05/29/22 Principal diagnosis: Acute on chronic heart failure with preserved ejection fraction 89-year-old female with a past medical history significant for coronary artery disease with previous stenting of the RCA, valvular heart disease, permanent atrial fibrillation, hypertension, hyperlipidemia, and congestive heart failure. Patient follows in the office with Dr. Hugo. We have been asked to see the patient in consultation for CHF. Patient examined at the bedside. Patient's daughter is at the bedside. Patient states she presented to the hospital for ch ief complaint of shortness of breath. She states that about a week ago she started having a cough and not feeling well. She reports having increased lower extremity edema at home but states it has resolved since receiving diuretics in the hospital. She states that she has been unable to lay flat due to her shortness of breath. She denies chest pain or pressure. The patient's blood pressure is elevated at the time of examination with a systolic ranging between 160 and 170. The patient states she checks her blood pressure at home and it has been elevated with a systolic usually 150 or greater. EKG reveals atrial fibrillation with controlled ventricular rate Chest xray there is evidence for mild congestive heart failure and small right pleural effusion which appears new compared to old exam Laboratory data: WBC 10.4. Hemoglobin 11.2. Platelet count 358. Sodium 131. Potassium 4.5. BUN 22. Creatinine 1.27. Troponin negative 1. ProBNP 5120. Objective - Vital Signs Vital signs: Vital Signs Temp 97.4 F L 05/29/22 07:00 Pulse 64 05/29/22 09:19 Resp 18 05/29/22 07:00 BP 136/68 05/29/22 07:00 Pulse Ox 94 L 05/29/22 07:00 FiO2 Intake & Output 05/28/22 05/29/22 05/29/22 18:59 06:59 18:59 Intake Total 118 Output Total 2100 Balance -2099 118 Weight 51.71 kg 50 kg Intake: Oral 118 Output: Urine 2100 Other: Voiding Method External Catheter External Catheter - Exam GENERAL: The patient is alert and oriented x3, not in any acute distress. Well developed, well nourished. HEENT: Pupils are round and equally reacting to light. EOMI. No scleral icterus. No conjunctival pallor. Normocephalic, atraumatic. No pharyngeal erythema. No thyromegaly. CARDIOVASCULAR: S1 and S2 present. No murmurs, rubs, or gallops. PULMONARY: Chest is clear to auscultation, no wheezing or crackles. ABDOMEN: Soft, nontender, nondistended, normoactive bowel sounds. No palpable organomegaly. MUSCULOSKELETAL: No joint swelling or deformity. EXTREMITIES: No cyanosis, clubbing, or pedal edema. NEUROLOGICAL: Gross neurological examination did not reveal any focal deficits. SKIN: No rashes. - Labs CBC & Chem 7: 05/29/22 05:09 05/29/22 05:09 Labs: Abnormal Lab Results - Last 24 Hours (Table) 05/29/22 Range/Units 05:09 WBC 10.10 H (4.50-10.00) X 10*3/uL RBC 3.76 L (4.10-5.20) X 10*6/uL Hgb 11.3 L (12.0-15.0) g/dL Hct 35.5 L (37.2-46.3) % MCHC 31.8 L (32.0-37.0) g/dL MPV 9.1 L (9.5-12.2) fL Monocytes # 1.10 H (0.20-1.00) X 10*3/uL Eosinophils # 0.40 H (0.04-0.35) X 10*3/uL Assessment and Plan Assessment: 1. Acute exacerbation chronic CHF with preserved EF - Patient has been placed on Lasix 40 mg IV every 12 hours; we will monitor strict LASHAE's, daily weights, low salt and fluid restricted diet - 2-D echo to assess left ventricular function 2. Uncontrolled hypertension; we will continue with home dose of losartan 100 mg daily along with atenolol 25 mg daily, Norvasc 5 mg daily 3. Permanent atrial fibrillation; patient remains rate controlled on atenolol 25 mg daily and anticoagulated with L Contreras mg twice a day 4. Hyperlipidemia; Zocor 40 mg by mouth daily at bedtime 5. Coronary artery disease with PCI to RCA 6. Gastroesophageal reflux disease; Protonix 40 mg daily DVT prophylaxis; SCDs/systemic anticoagulation CODE STATUS; full code
--- NOTE | 2022-05-29 16:01 | XR ---
EXAMINATION TYPE: XR chest 2V DATE OF EXAM: 05/29/2022 COMPARISON: 05/27/2022 HISTORY: Cough TECHNIQUE: FINDINGS: Heart is enlarged. There is slight blunting right costophrenic angle. There are chest leads . There are no hilar masses. There is mild thoracic kyphotic deformity. Sternum is intact. There is m inimal pulmonary congestion. IMPRESSION: Small right pleural effusion and mild congestion and cardiomegaly consistent with mild he art failure which is improved compared to last exam.
[2022-05-29] MEDS: AZITHROMYCIN 500 MG TAB PO SCH (16:46)
[2022-05-29 17:41] LABS: Appearance,Urine Clear (Clear); Bacteria,Urine Rare /hpf; Bilirubin,Urine Negative (Negative); Blood,Urine Negative (Negative); Color,Urine Yellow; Glucose,Urine (UA) Negative (Negative); Hyaline Casts,Urine 16 /lpf (0-2); Ketones,Urine Negative (Negative); Leukocyte Esterase,Urine Trace (Negative); Mucus,Urine Rare /hpf; Nitrite,Urine Negative (Negative); PH, Urine 5.5 (5.0-8.0); Protein,Urine Negative (Negative); RBC,Urine <1 /hpf (0-5); Specific Gravity,Urine 1.008 (1.001-1.035); Squamous Epithelial Cell,Urine 2 /hpf (0-4); Urobilinogen,Urine <2.0 mg/dL (<2.0); WBC,Urine 6 /hpf (0-5)
[2022-05-29] MEDS: atenoloL 25 MG TAB PO SCH (17:51)
[2022-05-29] MEDS: ATORVASTATIN 20 MG TAB PO SCH (17:51)
[2022-05-29] MEDS: FLUTICASONE 50MCG/SPRAY NASAL 16GM EA NOSTRIL SCH (21:27)
[2022-05-29] MEDS: ALPRAZolam 0.25 MG TAB PO PRN (21:27)
[2022-05-29] MEDS: LOSARTAN 50 MG TAB PO SCH (23:25)
[2022-05-30] MEDS: ALBUTEROL NEBULIZED 2.5 MG/3 ML INHALATION SCH ×4 (08:41→21:09)
[2022-05-30] MEDS: PANTOPRAZOLE 40 MG TABLET PO SCH (10:18)
[2022-05-30] MEDS: amLODIPine 10 MG TAB PO SCH (10:18)
[2022-05-30] MEDS: FUROSEMIDE 40 MG TAB PO SCH (10:18)
[2022-05-30] MEDS: CALCIUM CARB-VIT D 500 MG-5 MCG TAB PO SCH (10:19)
[2022-05-30] MEDS: POTASSIUM CHLORIDE ER 10 MEQ TAB.ER.PRT PO SCH (10:19)
[2022-05-30] MEDS: LORATADINE 10 MG TAB PO SCH (10:19)
[2022-05-30] MEDS: APIXABAN 2.5 MG TABLET PO SCH ×2 (10:19→20:59)
[2022-05-30 10:34] LABS: Basophils # (A) 0.05 X 10*3/uL (0.00-0.10); Basophils % (A) 0.5 %; Eosinophils # (A) 0.56 X 10*3/uL (0.04-0.35); Eosinophils % (A) 5.6 %; HCT 34.5 % (37.2-46.3); HGB 11.1 g/dL (12.0-15.0); Immature Grans, Automated 0.3 %; MCH 30.9 pg (27.0-32.0); MCHC 32.2 g/dL (32.0-37.0); MCV 96.1 fL (80.0-97.0); Mean Platelet Volume 9.3 fL (9.5-12.2); Monocytes # (A) 1.24 X 10*3/uL (0.20-1.00); Monocytes % (A) 12.4 %; NRBC Per 100 WBC 0 /100 WBCS (0.0-0.0); Neutrophils # (A) 6.88 X 10*3/uL (1.80-7.70); Neutrophils % (A) 69.2 %; Platelet Count 426 X 10*3/uL (140-440); RBC 3.59 X 10*6/uL (4.10-5.20); WBC 9.96 X 10*3/uL (4.50-10.00)
[2022-05-30 10:38] LABS: African American GFR (CKD) 24.7 (60.0-200.0); Anion Gap 12.3 mmol/L (10.00-18.00); BUN/Creat Ratio 17.38 Ratio (12.00-20.00); Blood Urea Nitrogen 35.1 mg/dL (9.0-27.0); Calcium 8.7 mg/dL (8.7-10.3); Carbon Dioxide 29.2 mmol/L (20.0-27.5); Non-African American GFR(CKD) 21.3 (60.0-200.0); Potassium 4.3 mmol/L (3.5-5.5)
[2022-05-30] MEDS: AZITHROMYCIN 500 MG TAB PO SCH (15:57)
--- NOTE | 2022-05-30 17:15 | P.PN ---
Subjective Progress Note Date: 05/30/22 Principal diagnosis: Acute on chronic heart failure with preserved ejection fraction 89-year-old female with a past medical history significant for coronary artery disease with previous stenting of the RCA, valvular heart disease, permanent atrial fibrillation, hypertension, hyperlipidemia, and congestive heart failure. Patient follows in the office with Dr. Hugo. We have been asked to see the patient in consultation for CHF. Patient examined at the bedside. Patient's daughter is at the bedside. Patient states she presented to the hospital for ch ief complaint of shortness of breath. She states that about a week ago she started having a cough and not feeling well. She reports having increased lower extremity edema at home but states it has resolved since receiving diuretics in the hospital. She states that she has been unable to lay flat due to her shortness of breath. She denies chest pain or pressure. The patient's blood pressure is elevated at the time of examination with a systolic ranging between 160 and 170. The patient states she checks her blood pressure at home and it has been elevated with a systolic usually 150 or greater. EKG reveals atrial fibrillation with controlled ventricular rate Chest xray there is evidence for mild congestive heart failure and small right pleural effusion which appears new compared to old exam Laboratory data: WBC 10.4. Hemoglobin 11.2. Platelet count 358. Sodium 131. Potassium 4.5. BUN 22. Creatinine 1.27. Troponin negative 1. ProBNP 5120. Patient reports improvement in breathing; complains of extreme weakness with minimal activity; hasn't been able to walk freely or use the bathroom independently Labs are reviewed and are stable Patient has been placed on Zithromax for severe tracheobronchitis; we will continue with diuretic therapy -- We will consult PT/OT for appropriate discharge planning Objective - Vital Signs Vital signs: Vital Signs Temp 97.7 F 05/30/22 07:00 Pulse 64 05/30/22 08:52 Resp 18 05/30/22 07:00 BP 122/58 05/30/22 07:00 Pulse Ox 96 05/30/22 07:00 FiO2 Intake & Output 05/29/22 05/30/22 05/30/22 18:59 06:59 18:59 Intake Total 118 Output Total 800 200 200 Balance -682 -200 -200 Weight 50.4 kg Intake: Oral 118 Output: Urine 800 200 200 Other: Voiding Method External Catheter External Catheter # Bowel Movements 1 - Exam GENERAL: The patient is alert and oriented x3, not in any acute distress. Well developed, well nourished. HEENT: Pupils are round and equally reacting to light. EOMI. No scleral icterus. No conjunctival pallor. Normocephalic, atraumatic. No pharyngeal erythema. No thyromegaly. CARDIOVASCULAR: S1 and S2 present. No murmurs, rubs, or gallops. PULMONARY: Chest is clear to auscultation, no wheezing or crackles. ABDOMEN: Soft, nontender, nondistended, normoactive bowel sounds. No palpable organomegaly. MUSCULOSKELETAL: No joint swelling or deformity. EXTREMITIES: No cyanosis, clubbing, or pedal edema. NEUROLOGICAL: Gross neurological examination did not reveal any focal deficits. SKIN: No rashes. - Labs CBC & Chem 7: 05/30/22 06:20 05/30/22 06:20 Labs: Abnormal Lab Results - Last 24 Hours (Table) 05/29/22 05/30/22 05/30/22 Range/Units 17:10 06:20 06:20 RBC 3.59 L (4.10-5.20) X 10*6/uL Hgb 11.1 L (12.0-15.0) g/dL Hct 34.5 L (37.2-46.3) % MPV 9.3 L (9.5-12.2) fL Monocytes # 1.24 H (0.20-1.00) X 10*3/uL Eosinophils # 0.56 H (0.04-0.35) X 10*3/uL Sodium 134 L (135-145) mmol/L Chloride 93 L (96-109) mmol/L Carbon Dioxide 29.2 H (20.0-27.5) mmol/L BUN 35.1 H (9.0-27.0) mg/dL Creatinine 2.0 H (0.6-1.5) mg/dL Est GFR (CKD-EPI)AfAm 24.7 L (60.0-200.0) Est GFR (CKD-EPI)NonAf 21.3 L (60.0-200.0) Ur Leukocyte Esterase Trace H (Negative) Urine WBC 6 H (0-5) /hpf Urine Bacteria Rare H (None) /hpf Hyaline Casts 16 H (0-2) /lpf Urine Mucus Rare H (None) /hpf Assessment and Plan Assessment: 1. Acute exacerbation chronic CHF with preserved EF - Patient has been placed on Lasix 40 mg IV every 12 hours; we will monitor strict LASHAE's, daily weights, low salt and fluid restricted diet - 2-D echo to assess left ventricular function 2. Uncontrolled hypertension; we will continue with home dose of losartan 100 mg daily along with atenolol 25 mg daily, Norvasc 5 mg daily 3. Permanent atrial fibrillation; patient remains rate controlled on atenolol 25 mg daily and anticoagulated with L Contrersa mg twice a day 4. Hyperlipidemia; Zocor 40 mg by mouth daily at bedtime 5. Coronary artery disease with PCI to RCA 6. Gastroesophageal reflux disease; Protonix 40 mg daily DVT prophylaxis; SCDs/systemic anticoagulation CODE STATUS; full code
[2022-05-30] MEDS: LOSARTAN 50 MG TAB PO SCH (18:01)
[2022-05-30] MEDS: ATORVASTATIN 20 MG TAB PO SCH (18:01)
[2022-05-30] MEDS: atenoloL 25 MG TAB PO SCH (18:01)
[2022-05-30] MEDS: ALPRAZolam 0.25 MG TAB PO PRN (20:58)
[2022-05-30] MEDS: FLUTICASONE 50MCG/SPRAY NASAL 16GM EA NOSTRIL SCH (20:59)
[2022-05-31] MEDS: ALBUTEROL NEBULIZED 2.5 MG/3 ML INHALATION SCH ×4 (07:22→20:52)
[2022-05-31 08:45] LABS: Basophils # (A) 0.03 X 10*3/uL (0.00-0.10); Basophils % (A) 0.3 %; Eosinophils # (A) 0.48 X 10*3/uL (0.04-0.35); Eosinophils % (A) 5.1 %; HCT 33.2 % (37.2-46.3); HGB 10.4 g/dL (12.0-15.0); Immature Grans, Automated 0.3 %; Lymphocytes # (A) 1.13 X 10*3/uL (0.90-5.00); MCH 29.8 pg (27.0-32.0); MCHC 31.3 g/dL (32.0-37.0); MCV 95.1 fL (80.0-97.0); Mean Platelet Volume 9.2 fL (9.5-12.2); Monocytes # (A) 1.25 X 10*3/uL (0.20-1.00); Monocytes % (A) 13.2 %; NRBC Per 100 WBC 0 /100 WBCS (0.0-0.0); Neutrophils # (A) 6.52 X 10*3/uL (1.80-7.70); Neutrophils % (A) 69.1 %; Platelet Count 365 X 10*3/uL (140-440); RBC 3.49 X 10*6/uL (4.10-5.20); RDW 12.1 % (11.5-14.5); WBC 9.44 X 10*3/uL (4.50-10.00)
[2022-05-31] MEDS: POTASSIUM CHLORIDE ER 10 MEQ TAB.ER.PRT PO SCH (09:19)
[2022-05-31] MEDS: APIXABAN 2.5 MG TABLET PO SCH ×2 (09:19→20:42)
[2022-05-31] MEDS: FUROSEMIDE 40 MG TAB PO SCH (09:19)
[2022-05-31] MEDS: PANTOPRAZOLE 40 MG TABLET PO SCH (09:19)
[2022-05-31] MEDS: amLODIPine 10 MG TAB PO SCH (09:20)
[2022-05-31] MEDS: CALCIUM CARB-VIT D 500 MG-5 MCG TAB PO SCH (09:20)
[2022-05-31] MEDS: LORATADINE 10 MG TAB PO SCH (09:20)
--- NOTE | 2022-05-31 10:24 | XR ---
EXAMINATION TYPE: XR chest 1V DATE OF EXAM: 05/31/2022 COMPARISON: 05/29/2022 HISTORY: Cough TECHNIQUE: Single frontal view of the chest is obtained. FINDINGS: Hyperinflation diffuse osteopenia. No sizable pneumothorax or pleural effusion. Heart is m ildly enlarged and there are subsegmental changes in both lung bases. No overt failure although degre e of chronic interstitial pulmonary fibrosis suspected. Calcified granuloma left midlung measuring 4 mm. IMPRESSION: 1. Cardiomegaly, COPD and basilar atelectasis or early infiltrate.
[2022-05-31 10:43] LABS: African American GFR (CKD) 32 (>60 ml/min/1.73 sqM); Anion Gap 7 mmol/L; Blood Urea Nitrogen 37 mg/dL (7-17); Calcium 8.2 mg/dL (8.4-10.2); Carbon Dioxide 27 mmol/L (22-30); Chloride 98 mmol/L (98-107); Glucose 90 mg/dL (74-99); Non-African American GFR(CKD) 27 (>60 ml/min/1.73 sqM); Sodium 132 mmol/L (137-145)
--- NOTE | 2022-05-31 14:54 | P.CNPUL ---
History of Present Illness Consult date: 05/31/22 Requesting physician: Esvin E Florin Reason for consult: dyspnea Chief complaint: sob History of present illness: This is an 89-year-old female with history of multiple medical problems including coronary artery disease, previous stent of the RCA, valvular heart disease, chronic atrial fibrillation and hypertension dyslipidemia, diastolic congestive heart failure. Patient was admitted on 05/28/2022, admitted mostly with symptoms of shortness of breath, occasional cough, no fever, no chills, no hemoptysis, no chest pain. On admission, the patient had an EKG showing atrial fibrillation with controlled ventricular rate, chest x-ray was suggestive of mild congestive heart failure, her labs were basically unremarkable including a CBC and basic metabolic profile however her BUN was 22 creatinine 1.27. And her BNP level was 5120. Screening for influenza A, influenza B, RSV and COVID-19 we re negative. Patient has been receiving antibiotics/Zithromax, she has also been receiving Lasix 40 mg daily, states that she has been feeling better, but not back to baseline. At any rate this consult was initiated. Chest x-ray was reviewed, there is no evidence of infiltrate, and the patient is responding well to diuresis. Patient has been told by her primary care physician in the past that she may have asthma has the patient is receiving albuterol, and seems to help to some extent in her pulmonary status patient never smoked, and she never had any history of COPD Review of Systems CONSTITUTIONAL: Negative. HEENT: Negative CARDIOVASCULAR: As noted in HPI PULMONARY: As noted in HPI GASTROINTESTINAL: Negative NEUROLOGICAL: Negative HEMATOLOGICAL: No clotting bleeding or bruising GENITOURINARY: Negative MUSCULOSKELETAL/RHEUMATOLOGICAL: Negative ENDOCRINE: Negative Past Medical History Past Medical History: Coronary Artery Disease (CAD), Heart Failure, GERD/Reflux, Hypertension Additional Past Medical History / Comment(s): hiatal hernia, blood in stool History of Any Multi-Drug Resistant Organisms: None Reported Past Surgical History: Cholecystectomy, Heart Catheterization, Heart Catheterization With Stent Additional Past Surgical History / Comment(s): stent to the Circumflex Past Anesthesia/Blood Transfusion Reactions: No Reported Reaction Date of Last Stent Placement:: 05/11/10 Past Psychological History: Anxiety Past Alcohol Use History: None Reported Past Drug Use History: None Reported - Past Family History Brother(s) Family Medical History: Cancer Additional Family Medical History / Comment(s): Throat cancer Father Family Medical History: Cancer Additional Family Medical History / Comment(s): anemia Sister(s) Family Medical History: Cancer Additional Family Medical History / Comment(s): breast cancer Medications and Allergies Home Medications Medication Instructions Recorded Confirmed Type Simvastatin [Zocor] 40 mg PO PC-SUPPER 04/17/14 05/28/22 History ALPRAZolam [Xanax] 0.25 mg PO BID PRN 06/11/16 05/28/22 History Calcium Carbonate/Vitamin D3 1 tab PO DAILY 06/12/16 05/28/22 History [Calcium 600-Vit D3 5 Mcg (200 Iu)] Losartan Potassium [Cozaar] 100 mg PO PC-SUPPER 08/20/16 05/28/22 History atenoloL [Tenormin] 25 mg PO PC-SUPPER 08/20/16 05/28/22 History Albuterol Nebulized [Ventolin 2.5 mg INHALATION RT-QID 05/28/22 05/28/22 History Nebulized] Apixaban [Eliquis] 2.5 mg PO BID 05/28/22 05/28/22 History Fluticasone Nasal [place] [Flonase 2 spray EA NOSTRIL HS 05/28/22 05/28/22 History Nasal [place]] Furosemide [Lasix] 20 mg PO DAILY 05/28/22 05/28/22 History Omeprazole [PriLOSEC] 40 mg PO DAILY 05/28/22 05/28/22 History Potassium Chloride ER [K-Dur 10] 10 meq PO DAILY 05/28/22 05/28/22 History amLODIPine [Norvasc] 5 mg PO DAILY 05/28/22 05/28/22 History Allergies Allergy/AdvReac Type Severity Reaction Status Date / Time metaxalone [From Skelaxin] Allergy Rash/Hives Verified 05/28/22 07:49 verapamil HCl [From Calan] Allergy Unknown Verified 05/28/22 07:49 isosorbide [From Imdur] AdvReac Severe Unknown Verified 05/28/22 07:49 naproxen AdvReac Severe Heartburn Verified 05/28/22 07:49 acetaminophen AdvReac Abdominal Verified 05/28/22 07:49 [From Tylenol-Codeine #3] Pain codeine phosphate AdvReac Abdominal Verified 05/28/22 07:49 [From Tylenol-Codeine #3] Pain quinapril HCl [From Accupril] AdvReac Rapid Verified 05/28/22 07:49 Heart Rate Physical Exam Vitals: Vital Signs Temp Pulse Pulse Resp BP BP Pulse Ox 05/31/22 11:10 74 05/31/22 11:02 72 05/31/22 07:22 97 05/31/22 07:00 97.5 F L 60 18 126/64 96 05/31/22 02:40 97.9 F 57 L 16 123/57 97 05/30/22 21:26 68 05/30/22 21:09 64 05/30/22 20:00 61 18 05/30/22 19:08 98.6 F 61 18 112/64 98 05/30/22 17:46 97.9 F 69 16 110/58 99 05/30/22 16:15 68 05/30/22 16:04 68 Intake and Output 05/30/22 05/31/22 05/31/22 22:59 06:59 14:59 Output Total 600 600 Balance -600 -600 Output: Urine 600 600 Other: Voiding Method Bedside Commode # Bowel Movements 1 Weight 49.5 kg Physical Exam: Revealed a 89-year-old female in no distress. Head: Atraumatic, normocephalic. HEENT:[Neck is supple.] [No neck masses.] [No thyromegaly.] [No JVD.] Chest: Minimal fine crackles at the bases no rhonchi no wheezes Cardiac Exam: Irregular irregular rhythm. [Normal S1 and S2, no S3 gallop, no murmur.] Abdomen: [Soft, nontender, no megaly, no rebound, no guarding, normal bowel sounds.] Extremities: [No clubbing, no edema, no cyanosis.] Neurological Exam: [No focal neurologic deficit.] Alert and oriented 3. Psychiatric: Normal mood affect and normal mental status examination. Skin: No rashes. Results - Laboratory Findings CBC and BMP: 05/31/22 05:40 05/31/22 05:40 PT/INR, D-dimer PT 11.9 sec (9.0-12.0) 05/27/22 22:39 INR 1.2 (<1.2) H 05/27/22 22:39 Abnormal lab findings: Abnormal Labs 05/27/22 05/27/22 05/27/22 22:39 22:39 22:39 WBC RBC 3.56 L Hgb 11.2 L Hct 33.0 L MCHC MPV Neutrophils # 8.6 H Lymphocytes # 0.7 L Monocytes # Eosinophils # INR 1.2 H APTT 30.1 H Sodium 131 L Chloride 97 L Carbon Dioxide BUN 22 H Creatinine 1.27 H Est GFR (CKD-EPI)AfAm Est GFR (CKD-EPI)NonAf Glucose 122 H Calcium AST 46 H ALT 49 H Total Protein 6.2 L Albumin 3.4 L Ur Leukocyte Esterase Urine WBC Urine Bacteria Hyaline Casts Urine Mucus 05/29/22 05/29/22 05/29/22 05:09 05:09 17:10 WBC 10.10 H RBC 3.76 L Hgb 11.3 L Hct 35.5 L MCHC 31.8 L MPV 9.1 L Neutrophils # Lymphocytes # Monocytes # 1.10 H Eosinophils # 0.40 H INR APTT Sodium 134 L Chloride 93 L Carbon Dioxide 29.2 H BUN Creatinine Est GFR (CKD-EPI)AfAm 35.4 L Est GFR (CKD-EPI)NonAf 30.6 L Glucose Calcium AST ALT Total Protein Albumin Ur Leukocyte Esterase Trace H Urine WBC 6 H Urine Bacteria Rare H Hyaline Casts 16 H Urine Mucus Rare H 05/30/22 05/30/22 05/31/22 06:20 06:20 05:40 WBC RBC 3.59 L 3.49 L Hgb 11.1 L 10.4 L Hct 34.5 L 33.2 L MCHC 31.3 L MPV 9.3 L 9.2 L Neutrophils # Lymphocytes # Monocytes # 1.24 H 1.25 H Eosinophils # 0.56 H 0.48 H INR APTT Sodium 134 L Chloride 93 L Carbon Dioxide 29.2 H BUN 35.1 H Creatinine 2.0 H Est GFR (CKD-EPI)AfAm 24.7 L Est GFR (CKD-EPI)NonAf 21.3 L Glucose Calcium AST ALT Total Protein Albumin Ur Leukocyte Esterase Urine WBC Urine Bacteria Hyaline Casts Urine Mucus 05/31/22 05:40 WBC RBC Hgb Hct MCHC MPV Neutrophils # Lymphocytes # Monocytes # Eosinophils # INR APTT Sodium 132 L Chloride Carbon Dioxide BUN 37 H Creatinine 1.65 H Est GFR (CKD-EPI)AfAm Est GFR (CKD-EPI)NonAf Glucose Calcium 8.2 L AST ALT Total Protein Albumin Ur Leukocyte Esterase Urine WBC Urine Bacteria Hyaline Casts Urine Mucus - Diagnostic Findings Chest x-ray: image reviewed (As noted in HPI) Assessment and Plan Assessment: Impression: Shortness of breath mostly cardiac in nature. Acute on chronic congestive heart failure with preserved ejection fraction Benign essential hypertension Chronic atrial fibrillation Possible mild bronchial asthma not clearly appreciated on physical examination but the patient was told by her primary care physician that her PFT showed mild obstructive airway disease, patient is a lifetime nonsmoker. History of coronary artery disease and previous PCI to RCA. Valvular heart disease Recommendation: Continue present treatment plan as per cardiology Continue Lasix. Continue to monitor electrolytes and renal profile. Continue albuterol for now, patient will need to have outpatient follow-up regarding her pulmonary status and a full PFT would be done in the office. In the meantime we fully agree with the present treatment plan, not much to be added. We'll continue to follow Time with Patient: Greater than 30
[2022-05-31] MEDS: AZITHROMYCIN 500 MG TAB PO SCH (15:49)
[2022-05-31] MEDS: ATORVASTATIN 20 MG TAB PO SCH (17:47)
[2022-05-31] MEDS: atenoloL 25 MG TAB PO SCH (17:47)
--- NOTE | 2022-05-31 18:55 | P.PN ---
Subjective 89-year-old female with a past medical history significant for coronary artery disease with previous stenting of the RCA, valvular heart disease, permanent atrial fibrillation, hypertension, hyperlipidemia, and congestive heart failure. Patient follows in the office with Dr. Hugo. We have been asked to see the patient in consultation for CHF. Patient examined at the bedside. Patient's daughter is at the bedside. Patient states she presented to the hospital for chief complaint of shortness of breath. She states that about a week ago she started having a cough and not feeling well. She reports having increased lower extremity edema at home but states it has resolved since receiving diuretics in the hospital. She states that she has been unable to lay flat due to her shortness of breath. She denies chest pain or pressure. The patient's blood pressure is elevated at the time of examination with a systolic ranging between 160 and 170. The patient states she checks her blood pressure at home and it has been elevated with a systolic usually 150 or greater. EKG reveals atrial fibrillation with controlled ventricular rate Chest xray there is evidence for mild congestive heart failure and small right pleural effusion which appears new compared to old exam Laboratory data: WBC 10.4. Hemoglobin 11.2. Platelet count 358. Sodium 131. Potassium 4.5. BUN 22. Creatinine 1.27. Troponin negative 1. ProBNP 5120. Patient reports improvement in breathing; complains of extreme weakness with minimal activity; hasn't been able to walk freely or use the bathroom independently Labs are reviewed and are stable Patient has been placed on Zithromax for severe tracheobronchitis; we will continue with diuretic therapy -- We will consult PT/OT for appropriate discharge planning 05/31/2022 patient admitted for acute CHF exacerbation responded to diuretics and switched to oral Lasix 40 mg daily. Acute kidney injury most likely secondary to diuretic, improving with creatinine down to 1.6 today. However chest x-ray showing persistent infiltrates and patient has exertional hypoxia Patient will need home oxygen, she drops to 84% with exertion, pending home oxygen approval present for discharge. appreciate pulmonary team input. We'll discharge and 24-48 hours Objective - Vital Signs Vital signs: Vital Signs Temp 97.5 F L 05/31/22 07:00 Pulse 72 05/31/22 15:13 Resp 18 05/31/22 07:00 BP 126/64 05/31/22 07:00 Pulse Ox 98 05/31/22 15:05 FiO2 Intake & Output 05/30/22 05/31/22 05/31/22 18:59 06:59 18:59 Intake Total 100 Output Total 400 400 600 Balance -300 -400 -600 Weight 49.5 kg Intake: Oral 100 Output: Urine 400 400 600 Other: Voiding Method Bedside Commode # Bowel Movements 1 1 - Exam GENERAL: The patient is alert and oriented x3, not in any acute distress. Well developed, well nourished. HEENT: Pupils are round and equally reacting to light. EOMI. No scleral icterus. No conjunctival pallor. Normocephalic, atraumatic. No pharyngeal erythema. No thyromegaly. CARDIOVASCULAR: S1 and S2 present. No murmurs, rubs, or gallops. -PULMONARY: Chest is clear to auscultation, no wheezing. or bilateral basal crepitation ABDOMEN: Soft, nontender, nondistended, normoactive bowel sounds. No palpable organomegaly. MUSCULOSKELETAL: No joint swelling or deformity. EXTREMITIES: No cyanosis, clubbing, or pedal edema. NEUROLOGICAL: Gross neurological examination did not reveal any focal deficits. SKIN: No rashes. no petechiae. - Labs CBC & Chem 7: 05/31/22 05:40 05/31/22 05:40 Labs: Abnormal Lab Results - Last 24 Hours (Table) 05/31/22 05/31/22 Range/Units 05:40 05:40 RBC 3.49 L (4.10-5.20) X 10*6/uL Hgb 10.4 L (12.0-15.0) g/dL Hct 33.2 L (37.2-46.3) % MCHC 31.3 L (32.0-37.0) g/dL MPV 9.2 L (9.5-12.2) fL Monocytes # 1.25 H (0.20-1.00) X 10*3/uL Eosinophils # 0.48 H (0.04-0.35) X 10*3/uL Sodium 132 L (137-145) mmol/L BUN 37 H (7-17) mg/dL Creatinine 1.65 H (0.52-1.04) mg/dL Calcium 8.2 L (8.4-10.2) mg/dL Assessment and Plan Assessment: 1. Acute exacerbation chronic CHF with preserved EF - Patient has been placed on Lasix 40 mg by mouth daily; we will monitor strict LASHAE's, daily weights, low salt and fluid restricted diet Ejection fraction 55-60% 2. hypertension; we will continue with home dose of losartan 100 mg daily along with atenolol 25 mg daily, Norvasc 5 mg daily. Controlled no 3. Permanent atrial fibrillation; patient remains rate controlled on atenolol 25 mg daily and anticoagulated with L Contreras mg twice a day 4. Hyperlipidemia; Zocor 40 mg by mouth daily at bedtime 5. Coronary artery disease with PCI to RCA 6. Gastroesophageal reflux disease; Protonix 40 mg daily 7. Acute hypoxic respiratory failure, responding to therapy DVT prophylaxis; SCDs/systemic anticoagulation CODE STATUS; full code
[2022-05-31] MEDS: LOSARTAN 50 MG TAB PO SCH (20:42)
[2022-05-31] MEDS: FLUTICASONE 50MCG/SPRAY NASAL 16GM EA NOSTRIL SCH (20:44)
[2022-05-31] MEDS: ALPRAZolam 0.25 MG TAB PO PRN (20:53)
[2022-06-01] MEDS: ALBUTEROL NEBULIZED 2.5 MG/3 ML INHALATION SCH ×3 (08:18→16:18)
[2022-06-01 08:55] LABS: Basophils # (A) 0.04 X 10*3/uL (0.00-0.10); Basophils % (A) 0.4 %; Eosinophils # (A) 0.32 X 10*3/uL (0.04-0.35); Eosinophils % (A) 3.6 %; HCT 35.3 % (37.2-46.3); HGB 11.2 g/dL (12.0-15.0); Immature Grans, Automated 0.3 %; Lymphocytes # (A) 1.32 X 10*3/uL (0.90-5.00); Lymphocytes % (A) 14.7 %; MCH 30.1 pg (27.0-32.0); MCHC 31.7 g/dL (32.0-37.0); MCV 94.9 fL (80.0-97.0); Mean Platelet Volume 9.1 fL (9.5-12.2); Monocytes # (A) 0.88 X 10*3/uL (0.20-1.00); Monocytes % (A) 9.8 %; NRBC Per 100 WBC 0 /100 WBCS (0.0-0.0); Neutrophils # (A) 6.38 X 10*3/uL (1.80-7.70); Neutrophils % (A) 71.2 %; Platelet Count 404 X 10*3/uL (140-440); RBC 3.72 X 10*6/uL (4.10-5.20); WBC 8.97 X 10*3/uL (4.50-10.00)
[2022-06-01 09:25] LABS: African American GFR (CKD) 30.5 (60.0-200.0); Anion Gap 10.3 mmol/L (10.00-18.00); BUN/Creat Ratio 22.29 Ratio (12.00-20.00); Blood Urea Nitrogen 37.9 mg/dL (9.0-27.0); Calcium 8.8 mg/dL (8.7-10.3); Carbon Dioxide 29.7 mmol/L (20.0-27.5); Non-African American GFR(CKD) 26.3 (60.0-200.0)
[2022-06-01] MEDS: FUROSEMIDE 40 MG TAB PO SCH (09:33)
[2022-06-01] MEDS: POTASSIUM CHLORIDE ER 10 MEQ TAB.ER.PRT PO SCH (09:33)
[2022-06-01] MEDS: amLODIPine 10 MG TAB PO SCH (09:33)
[2022-06-01] MEDS: PANTOPRAZOLE 40 MG TABLET PO SCH (09:33)
[2022-06-01] MEDS: APIXABAN 2.5 MG TABLET PO SCH (09:33)
[2022-06-01] MEDS: LORATADINE 10 MG TAB PO SCH (09:33)
[2022-06-01] MEDS: CALCIUM CARB-VIT D 500 MG-5 MCG TAB PO SCH (09:33)
--- NOTE | 2022-06-01 11:33 | P.PN ---
Subjective Progress Note Date: 06/01/22 Principal diagnosis: CHF exacerbation This is an 89-year-old female with history of multiple medical problems including coronary artery disease, previous stent of the RCA, valvular heart disease, chronic atrial fibrillation and hypertension dyslipidemia, diastolic congestive heart failure. Patient was admitted on 05/28/2022, admitted mostly with symptoms of shortness of breath, occasional cough, no fever, no chills, no hemoptysis, no chest pain. On admission, the patient had an EKG showing atrial fibrillation with controlled ventricular rate, chest x-ray was suggestive of mild congestive heart failure, her labs were basically unremarkable including a CBC and basic metabolic profile however her BUN was 22 creatinine 1.27. And her BNP level was 5120. Screening for influenza A, influenza B, RSV and COVID-19 were negative. Patient has been receiving antibiotics/Zithromax, she has also been receiving Lasix 40 mg daily, states that she has been feeling better, but not back to baseline. At any rate this consult was initiated. Chest x-ray was reviewed, there is no evidence of infiltrate, and the patient is responding well to diuresis. Patient has been told by her primary care physician in the past that she may have asthma has the patient is receiving albuterol, and seems to help to some extent in her pulmonary status patient never smoked, and she never had any history of COPD Evaluating this patient today on 06/01/2022 on a general medical floor. She is quite comfortable sitting up in bed on 2 L nasal cannula. Her oxygen saturation is 100%. Patient denies any shortness of breath, cough, fever, chest pain overnight. No chest x-ray to review today. The patient's CBC from today shows a WBC count of 8.9, hemoglobin 11.2, hematocrit 35.3, platelets 404,000. Patient's BMP shows sodium 135, chloride 95, potassium 4, serum CO2 29.7, BUN 38, creatinine 1.7, glucose 93. Patient has a component acute kidney injury. Procalcitonin was low at 0.09. Patient has remained afebrile overnight. Lungs sounds are clear without any wheezing. Patient is maintained on Ventolin inhalation. Patient is maintained Lasix 40 mg daily. Negative 700 mL in the l ast 24 hours. she's not receiving any IV maintenance fluids. Heart rhythm is regular and rate is controlled, she is Anticoagulated on Eliquis. Vital signs remain hemodynamically stable. Objective - Vital Signs Vital signs: Vital Signs Temp 98.0 F 06/01/22 08:00 Pulse 68 06/01/22 08:31 Resp 20 06/01/22 08:00 BP 132/55 06/01/22 08:00 Pulse Ox 95 06/01/22 08:00 FiO2 Intake & Output 05/31/22 06/01/22 06/01/22 18:59 06:59 18:59 Intake Total 958 238 Output Total 800 200 400 Balance 158 -200 -162 Weight 41.4 kg Intake: Oral 958 238 Output: Urine 800 200 400 Other: # Voids 1 # Bowel Movements 1 - Exam Physical Exam: Revealed a 89-year-old female in no distress. Head: Atraumatic, normocephalic. HEENT:[Neck is supple.] [No neck masses.] [No thyromegaly.] [No JVD.] Chest: Lungs sounds clear throughout without any rhonchi, wheezes, crackles. On 2 L nasal cannula. No conversational dyspnea or accessory muscle use. Cardiac Exam: Irregular rhythm. Heart rate 58 bpm. [Normal S1 and S2, no S3 gallop, no murmur.] Abdomen: [Soft, nontender, no megaly, no rebound, no guarding, normal bowel sounds.] Extremities: [No clubbing, no edema, no cyanosis.] Neurological Exam: [No focal neurologic deficit.] Alert and oriented 3. Psychiatric: Normal mood affect and normal mental status examination. Skin: No rashes. - Labs CBC & Chem 7: 06/01/22 06:09 06/01/22 06:09 Labs: Abnormal Lab Results - Last 24 Hours (Table) 06/01/22 06/01/22 Range/Units 06:09 06:09 RBC 3.72 L (4.10-5.20) X 10*6/uL Hgb 11.2 L (12.0-15.0) g/dL Hct 35.3 L (37.2-46.3) % MCHC 31.7 L (32.0-37.0) g/dL MPV 9.1 L (9.5-12.2) fL Chloride 95 L (96-109) mmol/L Carbon Dioxide 29.7 H (20.0-27.5) mmol/L BUN 37.9 H (9.0-27.0) mg/dL Creatinine 1.7 H (0.6-1.5) mg/dL Est GFR (CKD-EPI)AfAm 30.5 L (60.0-200.0) Est GFR (CKD-EPI)NonAf 26.3 L (60.0-200.0) BUN/Creatinine Ratio 22.29 H (12.00-20.00) Ratio Assessment and Plan Assessment: Acute on chronic congestive heart failure with preserved ejection fraction Benign essential hypertension Chronic atrial fibrillation. heart rate controlled. Anticoagulated on Eliquis. Possible mild bronchial asthma not clearly appreciated on physical examination but the patient was told by her primary care physician that her PFT showed mild obstructive airway disease, patient is a lifetime nonsmoker. History of coronary artery disease and previous PCI to RCA. Valvular heart disease Plan: Patient's medications and labs reviewed Patient's medications and labs reviewed. Continue Lasix Monitor accurate intake and output Continue Ventolin nebulizations On discharge we will schedule outpatient office visit for full PFT. We will continue to follow I have personally seen and examined the patient, performed the documentation and the assessment and plan as written. Number of minutes spent on the visit: 10. Time with Patient: Less than 30
[2022-06-01 11:45] VITALS: BMI 17.8
[2022-06-01 16:11] VITALS: BP 135/65; RESP 16; TEMP 97.9
[2022-06-01 16:30] VITALS: PULSE 69
--- NOTE | 2022-06-01 20:44 | P.DS ---
Providers Date of admission: 05/28/22 13:09 Attending physician: Marybel Katz MD Consults: 05/28/22 06:05 Consult Physician Routine Consulting Provider: [facility] Consult Reason/Comments: CHF exas Do you want consulting provider notified?: Yes, Notify in am 05/31/22 12:32 Consult Physician Urgent Consulting Provider: Klarissa Don Reason/Comments: tachypnea Do you want consulting provider notified?: Yes Primary care physician: Mindy Gallardo Hospital Course: Diagnoses: 1. Acute exacerbation chronic CHF with preserved Ejection fraction 55-60% 2. acute hypoxic failure secondary to above, requiring home oxygen delivered upon discharge 3. Permanent atrial fibrillation; patient remains rate controlled on atenolol 25 mg daily and anticoagulated with L Contreras mg twice a day 4. Hyperlipidemia; Zocor 40 mg by mouth daily at bedtime 5. Coronary artery disease with PCI to RCA 6. Gastroesophageal reflux disease; Protonix 40 mg daily 7. hypertension Hospital course: 89-year-old female with a past medical history significant for coronary artery disease with previous stenting of the RCA, valvular heart disease, permanent atrial fibrillation, hypertension, hyperlipidemia, and congestive heart failure. Patient follows in the office with Dr. Hugo. presents because of worsening dyspnea secondary to acute diastolic CHF, responded to treatment with oral Lasix. Evaluated by machine hoop maker and she was doing well, cardiology team signed off while pulmonary team recommended outpatient pulmonary function test. Today her dyspnea significantly improved but not completely resolved and she qualify for home oxygen when tested, discussed with casework specialist and oxygen will be delivered upon discharge. Other than that patient denies chest pain, no abdominal pain vomiting diarrhea, no new urological or neurological symptoms. Patient is cleared for discharge by consultants Patient denies any other new symptoms. Problems and management plan were discussed with the patient and he verbalized understanding and acceptance Patient was found stable and can be discharged home in guarded prognosis however he needs follow-up as an outpatient. Patient was instructed to follow up with PCP Dr. Gallardo within one week and patient agrees. Patient was instructed to follow up with her machine hoop maker Dr. Hugo in one week, Patient states that she already has appointment with Dr. Suarez on 06/15 patient was instructed to follow up with dairy manager Dr. Ramirez as an outpatient and she agrees Physical exam Gen: patient is a AAOx3, no distress CVS: S1-S2, RRR, no murmur -Lungs: B/L CTA, no wheezing-. Mildly tachypneic Abdomen: soft, no distention, no tenderness, positive bowel sounds Extremity: no leg edema or induration Time spent more than 35 minutes Patient Condition at Discharge: Stable Plan - Discharge Summary Discharge Rx Participant: No New Discharge Prescriptions: New RX: Furosemide [Lasix] 40 mg PO DAILY #30 tab RX: amLODIPine [Norvasc] 10 mg PO DAILY #30 tab RX: rOPINIRole HCL [Requip] 0.25 mg PO HS #21 tab Continue RX: Simvastatin [Zocor] 40 mg PO PC-SUPPER RX: ALPRAZolam [Xanax] 0.25 mg PO BID PRN PRN Reason: Anxiety RX: Calcium Carbonate/Vitamin D3 [Calcium 600-Vit D3 5 Mcg (200 Iu)] 1 tab PO DAILY RX: atenoloL [Tenormin] 25 mg PO PC-SUPPER RX: Losartan Potassium [Cozaar] 100 mg PO PC-SUPPER RX: Fluticasone Nasal [place] [Flonase Nasal [place]] 2 spray EA NOSTRIL HS RX: Apixaban [Eliquis] 2.5 mg PO BID RX: Omeprazole [PriLOSEC] 40 mg PO DAILY RX: Albuterol Nebulized [Ventolin Nebulized] 2.5 mg INHALATION RT-QID RX: Potassium Chloride ER [K-Dur 10] 10 meq PO DAILY Discontinued amLODIPine [Norvasc] 5 mg PO DAILY Furosemide [Lasix] 20 mg PO DAILY Discharge Medication List RX: Simvastatin [Zocor] 40 mg PO PC-SUPPER 04/17/14 [History] RX: ALPRAZolam [Xanax] 0.25 mg PO BID PRN 06/11/16 [History] RX: Calcium Carbonate/Vitamin D3 [Calcium 600-Vit D3 5 Mcg (200 Iu)] 1 tab PO DAILY 06/12/16 [History] RX: Losartan Potassium [Cozaar] 100 mg PO PC-SUPPER 08/20/16 [History] RX: atenoloL [Tenormin] 25 mg PO PC-SUPPER 08/20/16 [History] RX: Albuterol Nebulized [Ventolin Nebulized] 2.5 mg INHALATION RT-QID 05/28/22 [History] RX: Apixaban [Eliquis] 2.5 mg PO BID 05/28/22 [History] RX: Fluticasone Nasal [place] [Flonase Nasal [place]] 2 spray EA NOSTRIL HS 05/28/22 [History] RX: Omeprazole [PriLOSEC] 40 mg PO DAILY 05/28/22 [History] RX: Potassium Chloride ER [K-Dur 10] 10 meq PO DAILY 05/28/22 [History] RX: Furosemide [Lasix] 40 mg PO DAILY #30 tab 06/01/22 [Rx] RX: amLODIPine [Norvasc] 10 mg PO DAILY #30 tab 06/01/22 [Rx] RX: rOPINIRole HCL [Requip] 0.25 mg PO HS #21 tab 06/01/22 [Rx] Follow up Appointment(s)/Referral(s): Klarissa Don MD [STAFF PHYSICIAN] - 06/18/22 10:00 am Rodrigo Hugo MD [STAFF PHYSICIAN] - 1 Week (You have appointment with Dr. Suarez 06/15 as he stated) Mindy Gallardo DO [Primary Care Provider] - 1-2 days (PLEASE CALL AND SCHEDULE APPOINTMENT.) Patient Instructions/Handouts: Furosemide (By mouth), Amlodipine (By mouth), Ropinirole (By mouth), Heart Failure (DC), Using Oxygen at Home (DC) Activity/Diet/Wound Care/Special Instructions: heart healthy diet activity is restricted till you see your doctor Discharge Disposition: HOME WITH HOME HEALTH SERVICES
== END 2022-06-01 16:41 | disposition home health service (06) | DRG 291 ==
LOC: EC 22:01 → 6NMEDSUR 05-28 06:09 → OBSVTOIN 05-28 13:09 → 6NMEDSUR 05-28 14:05
PROVIDERS: ADMIT Internal Medicine; ATTEND Internal Medicine
DX: I11.0 Hypertensive heart disease with heart failure (principal); I50.33 Acute on chronic diastolic (congestive) heart failure; J96.01 Acute respiratory failure with hypoxia; I48.21 Permanent atrial fibrillation; N17.9 Acute kidney failure, unspecified; I25.10 Atherosclerotic heart disease of native coronary artery without angina pectoris; Z20.822 Contact with and (suspected) exposure to COVID-19; E78.5 Hyperlipidemia, unspecified; F41.9 Anxiety disorder, unspecified; K21.9 Gastro-esophageal reflux disease without esophagitis; I27.29 Other secondary pulmonary hypertension; I08.3 Combined rheumatic disorders of mitral, aortic and tricuspid valves; Z91.14 Patient's other noncompliance with medication regimen; Z95.5 Presence of coronary angioplasty implant and graft; Z88.5 Allergy status to narcotic agent; Z88.8 Allergy status to other drugs, medicaments and biological substances; Z79.899 Other long term (current) drug therapy; Z79.01 Long term (current) use of anticoagulants; Z80.8 Family history of malignant neoplasm of other organs or systems; Z80.3 Family history of malignant neoplasm of breast; Z87.19 Personal history of other diseases of the digestive system; Z90.49 Acquired absence of other specified parts of digestive tract
CPT/HCPCS: 36415; 71045; 71046; 80048; 80053; 81001; 83735; 83880; 84145; 84443; 84484; 85025; 85610; 85730; 87636; 93005; 93306; 94640; 94760; 96374; 96375; 99285